=== PATIENT | male | born 1950 | race Two or more races ===

== ENCOUNTER → 2020-10-01 12:38 | Outpatient (BNVA) | payer MEDICARE, OTHER, SELFPAY | PROVIDERS: PCP Nurse Practitioner Family; Visit Provider Physician Assistant ==

== ENCOUNTER 2020-11-17 10:45 | Outpatient (REF) | payer MEDICARE, OTHER, SELFPAY ==
--- NOTE | ~2020-11-17 | XR_ITS ---
EXAMINATION: XR KNEE, RIGHT XR KNEE, LEFT CLINICAL INFORMATION: Pain in bilateral knees. COMPARISON: Bilateral knees 03/16/2015. TECHNIQUE: AP weightbearing, tunnel, lateral weightbearing, and sunrise views of each knee are obtained. FINDINGS: RIGHT KNEE: There is no fracture, malalignment, or joint effusion. There are small marginal osteophytes involving all compartments. There is significant worsening medial compartment narrowing which is now severe, with mild subchondral sclerosis. LEFT KNEE: There is no fracture, malalignment, or joint effusion. There are small marginal osteophytes involving the patellofemoral and medial compartments. There is significant worsening medial compartment narrowing, now [id number], with mild subchondral sclerosis. XR/XR knee LT 4V IMPRESSION: Right Knee: Tricompartmental osteoarthritis, with significant worsening medial compartment narrowing which is now severe. Left Knee: Tricompartmental osteoarthritis with significant worsening medial compartment narrowing, now [id number].
--- NOTE | ~2020-11-17 | XR_ITS ---
EXAMINATION: XR KNEE, RIGHT XR KNEE, LEFT CLINICAL INFORMATION: Pain in bilateral knees. COMPARISON: Bilateral knees 03/16/2015. TECHNIQUE: AP weightbearing, tunnel, lateral weightbearing, and sunrise views of each knee are obtained. FINDINGS: RIGHT KNEE: There is no fracture, malalignment, or joint effusion. There are small marginal osteophytes involving all compartments. There is significant worsening medial compartment narrowing which is now severe, with mild subchondral sclerosis. LEFT KNEE: There is no fracture, malalignment, or joint effusion. There are small marginal osteophytes involving the patellofemoral and medial compartments. There is significant worsening medial compartment narrowing, now [id number], with mild subchondral sclerosis. XR/XR knee RT 4V IMPRESSION: Right Knee: Tricompartmental osteoarthritis, with significant worsening medial compartment narrowing which is now severe. Left Knee: Tricompartmental osteoarthritis with significant worsening medial compartment narrowing, now [id number].
== END 2020-11-17 10:46 | disposition home or self-care (01) ==
LOC: HO.XRAY 10:45
PROVIDERS: PCP Internal Medicine; Visit Provider Internal Medicine
DX: M25.561 Pain in right knee (principal); M25.562 Pain in left knee
CPT/HCPCS: 73564

== ENCOUNTER 2021-06-24 09:13 | Outpatient (REF) | payer MEDICARE, OTHER, SELFPAY ==
--- NOTE | ~2021-06-24 | XR_ITS ---
EXAMINATION: XR LUMBOSACRAL SPINE CLINICAL INFORMATION: Low back pain COMPARISON: Radiographs lumbar spine 08/09/2016 TECHNIQUE: Three views of the lumbosacral spine. 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 Vertebral bodies are normal in height. There is no lumbar vertebral compression, destructive process, or definite spondylolisthesis. There are degenerative disc changes again seen the lumbosacral junction with disc narrowing and endplate sclerosis and vertebral spurring. There are partially bridging lateral osteophytes again noted lower lumbar spine and borderline degenerative disc changes second presacral disc space. The SI joints and visualized sacrum are unremarkable. 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 -Degenerative disc changes lumbosacral junction. Bridging osteophytes lower lumbar spine. -No vertebral compression or destructive process.
[2021-06-24 09:39] LABS: MANUAL DIFF FLAG NO
[2021-06-24 10:01] LABS: Basophils Percent Auto 0.5 % (0-2); Eosinophils Absolute Auto 0.4 X10*3/uL (0.0-0.4); Eosinophils Percent Auto 4.2 % (0-4); Hematocrit 39.4 % (42.0-52.0); Hemoglobin 13.3 g/dl (14.0-18.0); Imm Gran Abs Auto 0.03 X10*3/uL (0.00-0.03); Imm Gran Pct Auto 0.4 % (0.0-0.4); Lymphocytes Absolute Auto 2.4 X10*3/uL (1.2-4.9); Lymphocytes Percent Auto 28.4 % (20-40); Mean Corpuscular HGB Conc 33.8 g/dl (31.0-36.0); Mean Corpuscular Hemoglobin 30.8 pg (27.0-33.0); Mean Corpuscular Volume 91.2 fL (80.0-98.0); Mean Platelet Volume 10.1 fL (9.4-12.4); Monocytes Percent Auto 12.3 % (2-11); Neutrophils Absolute Auto 4.6 x10*3/uL (2.0-8.3); Neutrophils Percent Auto 54.2 % (45-73); Platelet Count 297 X10*3/uL (160-400); Red Blood Count 4.32 X10*6/uL (4.60-5.80); Red Cell Distribution Width 12.1 % (11.0-16.0); White Blood Count 8.4 X10*3/uL (4.8-10.8)
[2021-06-24 10:21] LABS: Estimated Average Glucose 123 mg/dL; Hemoglobin A1c % 5.9 %
[2021-06-24 10:42] LABS: Alanine Aminotransferase 19 U/L (0-40); Albumin Level 3.7 g/dL (3.5-5.0); Alkaline Phosphatase 48 U/L (39-117); Anion Gap 10 (12-20); Aspartate Amino Transferase 15 U/L (5-37); Bilirubin Direct 0.2 mg/dL (0.0-0.5); Bilirubin Total 0.6 mg/dL (0.0-1.0); Blood Urea Nitrogen 13 mg/dL (9-16); Calcium 9.2 mg/dL (8.4-10.2); Carbon Dioxide 27 mmol/L (22-29); Chloride 105 mmol/L (96-108); Cholesterol 185 mg/dL; Estimated Glomerular Filt Rate > 60; Glucose Random 100 mg/dL (60-115); HDL Cholesterol 50 mg/dL; LDL Cholesterol Calculated 120 mg/dl; Potassium 4.2 mmol/L (3.3-5.1); Sodium 138 mmol/L (135-145); Total Protein 6.9 g/dL (6.5-8.0); Triglycerides 76 mg/dL
[2021-06-24 10:53] LABS: Prostate Specific Antigen 0.58 ng/mL (<0.05-4.0)
== END 2021-06-24 09:14 | disposition home or self-care (01) ==
LOC: HO.XRAY 09:13
PROVIDERS: PCP Internal Medicine; Visit Provider Internal Medicine
DX: Z00.00 Encounter for general adult medical examination without abnormal findings (principal); Z12.5 Encounter for screening for malignant neoplasm of prostate; M54.50 Low back pain, unspecified
CPT/HCPCS: 36415; 72100; 80048; 80061; 80076; 83036; 84153; 85025

== ENCOUNTER → 2021-07-15 09:14 | Outpatient (BNVA) | payer MEDICARE, OTHER, SELFPAY | PROVIDERS: PCP Internal Medicine; Referring Provider Internal Medicine; Visit Provider Physician Assistant | DX: K21.9 Gastro-esophageal reflux disease without esophagitis (principal); K52.9 Noninfective gastroenteritis and colitis, unspecified; R10.9 Unspecified abdominal pain | CPT/HCPCS: 99202 ==

== ENCOUNTER 2021-12-21 03:56 | Emergency (ER) | payer MEDICARE, OTHER, SELFPAY ==
--- NOTE | ~2021-12-21 | CT_ITS ---
EXAMINATION: CT CHEST WITHOUT CONTRAST CLINICAL INFORMATION: Cough COMPARISON: Chest x-ray performed today TECHNIQUE: Multidetector volumetric CT imaging of the chest was done. Axial MIP volume rendering provided. Sagittal and coronal reformatted images were obtained. This CT examination was performed using dose optimization techniques as appropriate, variously including the following: *Automated exposure control *Adjustment of mA and/or kV according to patient size (this includes techniques or standardized protocols for targeted exams where dose is matched to indication/reason for exam; i.e. extremities or head) *Use of iterative reconstruction technique DLP: 424 mGy-cm FINDINGS: LUNGS: No dominant consolidations. Scattered small calcific granulomas throughout the lungs, largest of which in the posterolateral left lower lobe series 6 image 338 at 6 mm. No distinct suspicious nodules noted. MEDIASTINUM: No suspiciously enlarged mediastinal or hilar adenopathy. CORONARY ARTERY CALCIFICATION: None visualized on this study. PLEURA: There is no pleural effusion. No pleural mass or thickening. AXILLA: Small axillary nodes without suspicious enlargement. UPPER ABDOMEN: No calcific cholelithiasis. Bilateral renal cysts, not completely studied. OSSEOUS STRUCTURES: Spondylitic change. No acute compression fractures. Degenerative joint space narrowing at the glenohumeral joints. CT/CT chest wo IV con IMPRESSION: No dominant consolidations or suspicious nodules appreciated. Changes of old granulomatous disease. Other incidental findings as noted above. Fleischner guidelines were followed.
--- NOTE | ~2021-12-21 | XR_ITS ---
EXAMINATION: XR CHEST CLINICAL INFORMATION: Cough COMPARISON: 06/03/2016 TECHNIQUE: 2 views of the chest were obtained. FINDINGS: Lung volumes are symmetric. No focal consolidation is seen. There is a new nodular density measuring 1.1 cm overlying the right upper lung. No evidence of pneumothorax, pleural effusion, or pulmonary edema. The cardiomediastinal contour is unremarkable. No acute osseous findings are seen. XR/XR chest 2V IMPRESSION: Nodular density measuring 1.1 cm overlying the right upper lung, new from prior. Further workup with chest CT is recommended. Otherwise no acute cardiac pulmonary findings.
[2021-12-21 04:15] VITALS: BP 195/94; PULSE 71; RESP 18; TEMP 36.6; O2SAT 97; BMI 34.9
[2021-12-21 04:30] LABS: COVID-19 Test Negative (Negative); IDNOW Serial# 16C4AD1C
--- NOTE | 2021-12-21 07:14 | ED.URI ---
HPI - URI/Sore Throat General Chief Complaint: Upper Respiratory Symptoms Stated Complaint: general med Time Seen by Provider: 12/21/21 07:13 Source: patient Mode of arrival: ambulatory Limitations: no limitations History of Present Illness HPI Narrative: 71 yo male with hx of HTN (not on JOSIE-i), GERD notes he got the flu shot two days ago and since then has had a dry cough and runny nose no other symptoms or known sick contacts. MD elicited complaint: cough Onset (ago): day(s) (2) Consistency: intermittent Severity: mild Description of mucous: clear Able to tolerate fluids by mouth: Yes Exacerbating factors: other (coughing) Relieving factors: nothing Context: other (states started with flu vaccine) Associated symptoms: denies other symptoms Treatments prior to arrival: none Related Data Home Medications Medication Instructions Recorded Confirmed fluticasone propionate 50 2 spray intranasal QAM PRN 10/01/20 mcg/actuation nasal spray,suspension pantoprazole 20 mg tablet,delayed 20 mg PO BID 07/15/21 release Previous Rx's Medication Instructions Recorded bisacodyl 5 mg tablet,delayed 10 mg PO ONCE colonoscopy prep 1 07/15/21 release (Dulcolax (bisacodyl)) day #2 tabs famotidine 20 mg tablet 20 mg PO BEDTIME #30 tabs 07/15/21 lansoprazole 30 mg capsule,delayed 30 mg PO DAILY #30 caps 07/15/21 release polyethylene glycol 3350 17 238 g PO ONCE 1 day #238 grams 07/15/21 gram/dose oral powder (Miralax) benzonatate 100 mg capsule 100 mg PO TID PRN cough #14 caps 12/21/21 Allergies Allergy/AdvReac Type Severity Reaction Status Date / Time Penicillins [PENICILLINS] Allergy Severe PASSED Verified 07/15/21 09:25 OUT penicillin V Allergy Unknown fainting Verified 07/15/21 09:25 lisinopril [LISINOPRIL] AdvReac Intermediate HEADACHE/DI Verified 07/15/21 09:25 ZZINESS metoprolol [METOPROLOL] AdvReac Intermediate HEADACHE/DI Verified 07/15/21 09:25 ZZINESS hydrochlorothiazide AdvReac Unknown LIGHTHEADNE Verified 07/15/21 09:25 [HYDROCHLOROTHIAZIDE] SS Review of Systems Review of Systems: Constitutional : No Fever, No Chills, no weight loss ENT/Mouth : No sore throat, pos Rhinorrhea, No Swallowing Difficulty Eyes: No Eye Pain, No Swelling, No Redness Cardiovascular : No Chest Pain, positive SOB, No Orthopnea, positive Edema Respiratory : pos Cough, No Sputum, No Wheezing, positive dyspnea Gastrointestinal : No Nausea, No Vomiting, No Diarrhea, No abdominal Pain, No Hematochezia, No Melena Genitourinary : No Dysuria, No Urinary Frequency, No Hematuria Musculoskeletal : No joint pain, No Myalgias Skin : No Skin Lesions, No rash Neuro : No Weakness, No Numbness, No Dizziness, No Headache Psych : No Anxiety/Panic, No Depression All other systems reviewed and are negative [facility] Past Medical History Attestation statement: The following information was validated with the patient. Medical History Abdominal pain GERD (gastroesophageal reflux disease) HTN (hypertension) Surgical History History of esophagogastroduodenoscopy (EGD) Hx of colonoscopy Family History Family History Mother Cancer Father HTN (hypertension) Brother Cancer Sister Cancer Social History Social History Household Members Other:: lives with Alcohol intake: never Patient Tobacco Use Status: Never used Tobacco Advance Directives: No Advance Directives Information Provided: No Current occupation: retired Physical Exam Vital Signs: Vital Signs: Last Vital Signs Temp 97.9 F 12/21/21 04:15 Pulse 76 12/21/21 08:39 Resp 16 12/21/21 08:39 BP 159/72 H 12/21/21 08:39 Pulse Ox 96 12/21/21 08:39 O2 Del Method 12/21/21 08:39 BMI result Body Mass Index 34.9 Appearance: Alert. Oriented X3. No acute distress. Eyes: Pupils equal, round and reactive to light. ENT: Pharynx normal. Neck: Normal inspection. Neck supple. CVS: Normal heart rate and rhythm. Pulses normal. Respiratory: No respiratory distress. Breath sounds normal. intermittent mild dry cough Abdomen: Soft and nontender. Skin: Skin warm and dry. Normal skin color. Normal skin turgor. Extremities: No lower extremity edema. No calf ttp Neuro: Oriented X 3. No motor deficit. No sensory deficit. Course Course Course Narrative: given CXR will get dry CT scan to evaluate for possible mass no acute findings on CT chest stable for DC MDM - URI/Sore Throat MDM Narrative Medical decision making narrative: 71 yo male with hx of HTN (not on JOSIE-i), GERD here with c/o cough x 2 days and runny nose post flu vaccine - at this time not toxic, will need CXR and swabs for flu/covid/RSV. He is not toxic, no distress and not hypoxic. no CP or SOB to suggest ACS/PE. Dispo per results and findings. Lab Data Labs: Lab Results 12/21/21 12/21/21 Range/Units 04:12 07:40 COVID-19 (CHELITA) Negative (Negative) COVID-19 Clin Com See Note Influenza Type A (PCR) NEGATIVE (Negative) Influenza Type B (PCR) NEGATIVE (Negative) RSV RNA Qual (PCR) NEGATIVE (Negative) SARS-CoV-2 RNA (RT-PCR) NEGATIVE (Negative) Discharge Plan Discharge Clinical Impression: Acute cough Patient Disposition: Home, Self-Care Instructions: Acute Cough (ED) Additional Instructions: return to ED for any worsening symptoms or concerns no flu/covid/rsv CT chest normal FINDINGS: LUNGS: No dominant consolidations. Scattered small calcific granulomas throughout the lungs, largest of which in the posterolateral left lower lobe series 6 image 338 at 6 mm. No distinct suspicious nodules noted. MEDIASTINUM: No suspiciously enlarged mediastinal or hilar adenopathy. CORONARY ARTERY CALCIFICATION: None visualized on this study. PLEURA: There is no pleural effusion. No pleural mass or thickening.? AXILLA: Small axillary nodes without suspicious enlargement.? UPPER ABDOMEN: No calcific cholelithiasis. Bilateral renal cysts, not completely studied.? OSSEOUS STRUCTURES: Spondylitic change. No acute compression fractures. Degenerative joint space narrowing at the glenohumeral joints.? CT/CT chest wo IV con IMPRESSION: No dominant consolidations or suspicious nodules appreciated. ? Changes of old granulomatous disease. ? Other incidental findings as noted above. Prescriptions: New benzonatate 100 mg capsule 100 mg PO TID PRN (Reason: cough) Qty: 14 0RF No Action fluticasone propionate 50 mcg/actuation spray,suspension 2 spray intranasal QAM PRN pantoprazole 20 mg tablet,delayed release (DR/EC) 20 mg PO BID famotidine 20 mg tablet 20 mg PO BEDTIME Qty: 30 3RF lansoprazole 30 mg capsule,delayed release(DR/EC) 30 mg PO DAILY Qty: 30 3RF bisacodyl [Dulcolax (bisacodyl)] 5 mg tablet,delayed release (DR/EC) 10 mg PO ONCE 1 Days Qty: 2 0RF Rx Instructions: Take 2 tablets by mouth at 12:00pm the day before your procedure. polyethylene glycol 3350 [Miralax] 17 gram/dose powder 238 g PO ONCE 1 Days Qty: 238 0RF Rx Instructions: Take as directed by mouth the day before your procedure. Referrals: Sharmin Church MD [Primary Care Provider] - 5 days (if not better)
[2021-12-21 08:30] LABS: Influenza A PCR NEGATIVE (Negative); Influenza B PCR NEGATIVE (Negative); Resp Syncy Virus RNA Qual PCR NEGATIVE (Negative); SARS COV2 PCR INHOUSE NEGATIVE (Negative)
[2021-12-21 08:39] VITALS: BP 159/72; PULSE 76; RESP 16; O2SAT 96
== END 2021-12-21 09:30 | disposition home or self-care (01) ==
PROVIDERS: Emergency Provider Emergency Medicine; PCP Internal Medicine
DX: R05.9 Cough, unspecified (principal); M54.6 Pain in thoracic spine; Z20.822 Contact with and (suspected) exposure to COVID-19; Z79.899 Other long term (current) drug therapy
CPT/HCPCS: 0241U; 71046; 71250; 87635; 99282; 99284

== ENCOUNTER → 2021-12-28 15:49 | Outpatient (REF) | payer MEDICARE, OTHER, SELFPAY | LOC: HO.SL 15:49 | PROVIDERS: Visit Provider Internal Medicine | DX: G47.33 Obstructive sleep apnea (adult) (pediatric) (principal); G47.10 Hypersomnia, unspecified | CPT/HCPCS: 95806 ==

== ENCOUNTER 2023-02-28 10:07 | Outpatient (REF) | payer MEDICARE, OTHER, SELFPAY ==
[2023-02-28 12:15] LABS: Anion Gap 11 (12-20); Blood Urea Nitrogen 12 mg/dL (9-16); Calcium 8.9 mg/dL (8.4-10.2); Carbon Dioxide 26 mmol/L (22-29); Chloride 106 mmol/L (96-108); Estimated Glomerular Filt Rate > 60; Glucose Random 99 mg/dL (60-115); Potassium 3.8 mmol/L (3.3-5.1); Sodium 139 mmol/L (135-145)
== END 2023-02-28 10:08 | disposition home or self-care (01) ==
LOC: HO.HHCL 10:07
PROVIDERS: Visit Provider Nurse Practitioner Primary Care
DX: I10 Essential (primary) hypertension (principal)
CPT/HCPCS: 36415; 80048

== ENCOUNTER 2023-03-08 10:03 | Outpatient (REF) | payer MEDICARE, OTHER, SELFPAY ==
[2023-03-08 12:17] LABS: Prostate Specific Antigen 0.52 ng/mL (<0.05-4.0)
== END 2023-03-08 10:04 | disposition home or self-care (01) ==
LOC: HO.HHCL 10:03
PROVIDERS: Visit Provider Internal Medicine
DX: Z00.00 Encounter for general adult medical examination without abnormal findings (principal); Z12.5 Encounter for screening for malignant neoplasm of prostate
CPT/HCPCS: 36415; 84153

== ENCOUNTER 2023-04-10 11:23 | Day surgery (SDC) | payer MEDICARE, OTHER, MEDICAID, SELFPAY ==
--- NOTE | 2023-04-07 09:02 | HO.ANESPROP2 ---
Documented by User: Indu Navas NP 04/07/23 09:08 HPI - Anesthesia Eval Consult details Narrative: 72yo M for Colonoscopy PMFSH Active Problems Active Problems: All Active Problems (Updated 12/22/21 @ 00:02 by Abundio Felder) Abdominal pain (Acute) Chronic diarrhea (Acute) Past Medical History Medical History HTN (hypertension) Abdominal pain GERD (gastroesophageal reflux disease) Family History Family History Mother Cancer Father HTN (hypertension) Brother Cancer Sister Cancer Surgical History Surgical History Hx of colonoscopy History of esophagogastroduodenoscopy (EGD) Social History Social History Household Members Other:: lives with Alcohol intake: never Patient Tobacco Use Status: Never used Tobacco Use of substances other than those prescribed or required for medical reasons: No Are you DNR?: No Advance Directives: No Advance Directives Information Provided: Yes Current occupation: retired Meds Allergies Allergy/AdvReac Type Severity Reaction Status Date / Time Penicillins [PENICILLINS] Allergy Severe PASSED Verified 04/10/23 11:56 OUT penicillin V Allergy Unknown fainting Verified 04/10/23 11:56 lisinopril [LISINOPRIL] AdvReac Intermediate HEADACHE/DI Verified 04/10/23 11:56 ZZINESS metoprolol [METOPROLOL] AdvReac Intermediate HEADACHE/DI Verified 04/10/23 11:56 ZZINESS hydrochlorothiazide AdvReac Unknown LIGHTHEADNE Verified 04/10/23 11:56 [HYDROCHLOROTHIAZIDE] SS Home Medications Medication Instructions Recorded Confirmed Last Taken Type fluticasone propionate 50 2 spray intranasal QAM PRN 10/01/20 Unknown History mcg/actuation nasal spray,suspension pantoprazole 20 mg tablet,delayed 20 mg PO BID 07/15/21 Unknown History release Exam Pertinent Lab Results Pertinent Lab Results: Laboratory Tests 06/24/21 02/28/23 09:38 10:15 WBC 8.4 Hgb 13.3 L Hct 39.4 L Plt Count 297 Sodium 139 Potassium 3.8 Chloride 106 Carbon Dioxide 26 BUN 12 Creatinine 0.81 Assessment and Plan Assessment Anesthesia Assessment: Chart Reviewed Documented by User: Aixa Andujar MD 04/10/23 12:45 [facility] Past Medical History Medical History HTN (hypertension) Abdominal pain GERD (gastroesophageal reflux disease) Family History Family History Mother Cancer Father HTN (hypertension) Brother Cancer Sister Cancer Family history of problems with anesthesia: No Surgical History Surgical History Hx of colonoscopy History of esophagogastroduodenoscopy (EGD) History of Problems with Anesthesia: No Social History Social History Household Members Other:: lives with Alcohol intake: never Patient Tobacco Use Status: Never used Tobacco Use of substances other than those prescribed or required for medical reasons: No Are you DNR?: No Advance Directives: No Advance Directives Information Provided: Yes Current occupation: retired Meds Allergies Allergy/AdvReac Type Severity Reaction Status Date / Time Penicillins [PENICILLINS] Allergy Severe PASSED Verified 04/10/23 11:56 OUT penicillin V Allergy Unknown fainting Verified 04/10/23 11:56 lisinopril [LISINOPRIL] AdvReac Intermediate HEADACHE/DI Verified 04/10/23 11:56 ZZINESS metoprolol [METOPROLOL] AdvReac Intermediate HEADACHE/DI Verified 04/10/23 11:56 ZZINESS hydrochlorothiazide AdvReac Unknown LIGHTHEADNE Verified 04/10/23 11:56 [HYDROCHLOROTHIAZIDE] Home Medications Medication Instructions Recorded Confirmed Last Taken Type fluticasone propionate 50 2 spray intranasal QAM PRN 10/01/20 Unknown History mcg/actuation nasal spray,suspension pantoprazole 20 mg tablet,delayed 20 mg PO BID 07/15/21 Unknown History release Exam Airway Mallampati Class: II TM Dist: >3cm Neck ROM: Full Heart: rrr Lungs: cta Assessment and Plan Assessment Anesthesia Assessment: Anesthesia Plan Discussed Final Anesthetic Review Family History of Problems with Anesthesia: No History of Problems with Anesthesia: No NPO: Yes ASA Class: III Final Preanesthetic Review: No Changes in Pt Med Stat, Meds/Allgs Chart Reviewed, Consent Obtained/Reviewed and Anes Risks/Benef Reviewed Patient Risk: Intermediate Procedure Risk: Low Anesthetic Plan Anesthetic Plan: MAC: Disposition: Standard PACU
[2023-04-10 11:51] VITALS: BMI 35.9
[2023-04-10 12:10] VITALS: BP 147/67; PULSE 72; RESP 16; TEMP 36.4; O2SAT 95
[2023-04-10] MEDS: Famotidine/PF 20 MG/2 ML VIAL IVPUSH (12:29)
[2023-04-10] MEDS: Lactated Ringers 1,000 ML 100 ML IVCONT (12:36)
[2023-04-10 14:26] VITALS: BP 98/57; PULSE 74; RESP 16; TEMP 37.2; O2SAT 98
--- NOTE | 2023-04-10 14:27 | PM.OP ---
Brief Operative Note Date of Service: 04/10/23 Pre-op diagnosis: + Cologuard Post-op diagnosis: other (Polyps) Procedure: Colonoscopy to the cecum with hot snare polypectomy x 8 with placement of 2 Resolution clips x 2 placed at proximal-most ascending colon polyps Surgeon: Felipe Varela MD Anesthesia: MAC Was an [employer] used for this Procedure?: No Estimated blood loss (mL): 0 Pathology: other (A. Polyp at 40cm B. Transverse colon polyp C. Cecal polyp D. Four Ascending colon polyps E. Polyp at 60cm) Condition: stable Disposition: PACU
[2023-04-10 14:41] VITALS: BP 123/66; PULSE 70; RESP 16; O2SAT 100
[2023-04-10 14:51] VITALS: BP 121/67; PULSE 64; RESP 16; TEMP 37.2; O2SAT 99
--- NOTE | 2023-04-10 22:21 | OP_ITS ---
DATE OF SERVICE: 04/10/2023 SURGEON: Felipe Varela MD INDICATIONS: The patient presents for evaluation of a positive Cologuard test. PREOPERATIVE DIAGNOSIS: Posiitve Cologuard POSTOPERATIVE DIAGNOSIS: Colon polyps, Diverticulosis PROCEDURE PERFORMED: Colonoscopy to the cecum with hot snare polypectomy x 8 and placement of resolution clips on the 2 most proximal polypectomy sites in the proximal ascending colon. ESTIMATED BLOOD LOSS: COMPLICATIONS: ANESTHESIA: ASSISTANTS: SPECIMENS: DESCRIPTION OF PROCEDURE: The patient was placed in the left lateral decubitus position. The digital rectal exam revealed no abnormalities. The Olympus video pediatric colonoscope was entered into the rectum and advanced to a level of 60 cm. At this level was an approximately 1.2 cm polyp on a short stalk, which was removed by hot snare polypectomy and recovered by withdrawing it on the tip of the scope. The scope was then readvanced back into the rectum and to the polypectomy site. The polypectomy site was visualized and appeared clean, without any sign of residual polyp nor bleeding. As the scope was being advanced to the cecum, an approximately 8 mm transverse colon polyp was visualized, and this was removed by hot snare polypectomy and recovered by suction. The polypectomy site appeared clean, without any sign of residual polyp nor bleeding. The scope was then advanced to the cecum. The entire cecum was well visualized including the appendiceal orifice, which appeared normal. The ileocecal valve appeared normal. In the cecum was an approximately 8 mm polyp, which was removed by hot snare polypectomy and recovered by suction. The polypectomy site appeared clean, without any sign of residual polyp nor bleeding. The scope was then slowly withdrawn assessing all mucosal surfaces carefully. Preparation was excellent. In the proximal ascending colon were 4 polyps. Two of these were approximately 1.2 cm in size. The 2 larger polyps, which were just distal to those 2 polyps were larger at approximately 2 cm each. All of the polyps were removed by hot snare polypectomy. The 2 more proximal polypectomy sites appeared clean, without any sign of residual polyps nor bleeding. I did place 2 resolution clips on each of those 2 polypectomy sites with good deployment and good hemostasis. Both of those polyps were then recovered with the retrieval net simultaneously and brought out of the patient with the scope. The scope was then readvanced back to the polypectomy sites. The 2 larger polyps were then recovered with the retrieval net as well in a simultaneous manner and then brought out of the patient. The scope was then readvanced back to the polypectomy sites as well. As best I could see, the polypectomy sites of the 2 larger polyps appeared clean, without any sign of residual polyp nor bleeding. However, it was difficult to get a good en face visualization of those polypectomy sites. I was planning to place clips on them given the size of the polyps, but I was not able to get a good visualization of them and therefore, clips were not placed. At that point, the procedure was quite lengthy and I opted to start withdrawing the scope. At 60 cm was an approximately 8 mm polyp on a long thin stalk, which was removed by hot snare polypectomy and recovered by suction. The polypectomy site appeared clean, without any sign of residual polyp nor bleeding. I did not visualize any other polyps, colitis, or angiodysplasia. There was a mild amount of sigmoid diverticulosis. In the rectum, scope was retroflexed visualizing internal hemorrhoids, but no other pathology. The rectal mucosa appeared normal. The scope was straightened and withdrawn from the patient. He tolerated the procedure well and was returned to the recovery area in stable condition. IMPRESSION: 1. Colon polyps. 2. Diverticulosis. 3. Internal hemorrhoids. PLAN: The results of the pathology will be checked. Assuming there is no malignancy in the larger polyps, I would then recommend a repeat colonoscopy by the end of this year for re-evaluation of the polypectomy sites, particularly the 2 largest ones in the ascending colon. He will be seen later this Spring for followup in the office to schedule that. He was advised not to use any aspirin and NSAIDs for at least 2 weeks. This has all been discussed in detail with his , as well as with the patient. He has been advised to call if he has any signs of bleeding. MD ALLYN Hinton/OSWALDO / [id number] ELANA
== END 2023-04-10 15:27 | disposition home or self-care (01) ==
PROVIDERS: Visit Provider Internal Medicine
PROC: 0DJD8ZZ Inspection of Lower Intestinal Tract, Via Natural or Artificial Opening Endoscopic (ICD-10-PCS; CPT 45378; principal; 2023-04-10 12:30)
DX: D12.0 Benign neoplasm of cecum (principal); D12.3 Benign neoplasm of transverse colon; D12.4 Benign neoplasm of descending colon; D12.5 Benign neoplasm of sigmoid colon; K57.30 Diverticulosis of large intestine without perforation or abscess without bleeding; K64.8 Other hemorrhoids; R19.5 Other fecal abnormalities
CPT/HCPCS: 45385; 88305; J2704

== ENCOUNTER 2023-06-05 16:02 | Outpatient (REF) | payer MEDICARE, OTHER, MEDICAID, SELFPAY | END 2023-06-05 16:03 | disposition home or self-care (01) | LOC: HO.HHCLNP 16:02 | PROVIDERS: Visit Provider General Practice | DX: R19.7 Diarrhea, unspecified (principal) | CPT/HCPCS: 87177; 87209 ==

== ENCOUNTER 2023-09-27 13:20 | Outpatient (AMB) | payer MEDICARE, OTHER, MEDICAID, SELFPAY ==
--- NOTE | 2023-09-27 13:22 | A.OFFVIS_ITS ---
Vital Signs 09/27/23 13:23 Height 5 ft 11 in Weight 258 lb 13.163 oz BMI 36.1 BP 142/68 H Blood Pressure Location Lt brachial Position Sitting Pulse 70 Pulse Source Pulse Oximeter Intake Visit Reasons: Pituitary macroadenoma/confirmed Intake Note: Patient present today for Pituitary macroadenoma follow up visit. Male Infertility Specialist Required: Yes Male Infertility Specialist Language: Croatian Information Interpreted: non-clinical & clinical Accompanied by: Self / Same As Patient Allergies Penicillins [PENICILLINS] Allergy (Severe, Verified 09/27/23 13:28) PASSED OUT penicillin V Allergy (Unknown, Verified 09/27/23 13:28) fainting lisinopril [LISINOPRIL] Adverse Reaction (Intermediate, Verified 09/27/23 13:28) HEADACHE/DIZZINESS metoprolol [METOPROLOL] Adverse Reaction (Intermediate, Verified 09/27/23 13:28) HEADACHE/DIZZINESS hydrochlorothiazide [HYDROCHLOROTHIAZIDE] Adverse Reaction (Unknown, Verified 09/27/23 13:28) LIGHTHEADNESS Medication List - Last Reconciled 09/27/23 by Felipe Gleason MD benzonatate 100 mg PO TID PRN bisacodyl (Dulcolax (bisacodyl)) 10 mg (2 x 5 mg) PO ONCE 1 day famotidine 20 mg PO BEDTIME fluticasone propionate 50 mcg/actuation 2 sprays intranasal QAM PRN lansoprazole 30 mg PO DAILY losartan 100 mg PO DAILY pantoprazole 20 mg PO BID polyethylene glycol 3350 (Miralax) 238 grams PO ONCE 1 day HPI Comments Details: This is a 73-year-old male referred to endocrinology for 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 . CT Scan showed a 17 by 23 x 21 mm suprasellar lesion with bony expansion of the sella turcica. There is no further workup provided. CT Scan was done for headache . No visual field was performed Currently, patient admits to occasional headache but c/o loss of vision in left . He denies any breast discharge. He denies any symptoms of enlargement of the hands or feet with symptoms of acromegaly. He denies any symptoms of Diana syndrome. No loss of libido . [facility] Medical History HTN (hypertension) Abdominal pain GERD (gastroesophageal reflux disease) Surgical History Hx of colonoscopy History of esophagogastroduodenoscopy (EGD) Family History Mother Cancer Father HTN (hypertension) Brother Cancer Sister Cancer Social History Household Members Other:: lives with Alcohol intake: never Patient Tobacco Use Status: Never used Tobacco Current occupation: retired Physical Exam Const Other: No cushingoid or acromegalic features. Thyroid gland is normal size weighs about 15 g. There was no loss of visual david by gross confrontation. Assessment & Plan Assessment & Plan (1) Pituitary adenoma: Code(s): D35.2 - Benign neoplasm of pituitary gland Category: Medical Plan: This is a 73-year-old male with a history of pituitary macroadenoma. Rule out hypersecretion of pituitary hormones and under secretion . He had normal basic metabolic panel Plan is to check a prolactin, IGF-1, TSH, free T4, a.m. cortisol, testosterone, LH, FSH. Will need a Neuro-Ophthalmology referral to rule out visual field loss. Will also get MRI of the pituitary for better visualization. Will make referral to neurosurgeon Dr. Castelan in [place] at [facility] General Orders: Orders Cortisol Random Today D35.2 - Benign neoplasm of pituitary gland Lutenizing Hormone Today D35.2 - Benign neoplasm of pituitary gland Follicle Stimulating Hormone Today D35.2 - Benign neoplasm of pituitary gland Free T4 (Free Thyroxine) Today D35.2 - Benign neoplasm of pituitary gland Thyroid Stimulating Hormone Today D35.2 - Benign neoplasm of pituitary gland MR head/brain wo/w con Today D35.2 - Benign neoplasm of pituitary gland Cortisol, Free 24Hr Urine Today D35.2 - Benign neoplasm of pituitary gland IGF-1 (Somatomedin C) Today D35.2 - Benign neoplasm of pituitary gland Creatinine, 24 Hr Group Today D35.2 - Benign neoplasm of pituitary gland Prolactin Today D35.2 - Benign neoplasm of pituitary gland Testosterone, Free/Total Today D35.2 - Benign neoplasm of pituitary gland Referrals Neurosurgery Referral D35.2 - Benign neoplasm of pituitary gland Coding Level of Care Code New Pt Level 4 (33219) Diagnoses Pituitary adenoma D35.2
[2023-09-27 13:23] VITALS: BP 142/68; PULSE 70; BMI 36.1
== END 2023-09-27 15:28 | disposition home or self-care (01) ==
PROVIDERS: Visit Provider Internal Medicine Endocrinology, Diabetes & Metabolism
DX: D35.2 Benign neoplasm of pituitary gland (principal)
CPT/HCPCS: 99204

== ENCOUNTER → 2023-09-27 13:20 | Outpatient (BNVA) | payer MEDICARE, OTHER, MEDICAID, SELFPAY | PROVIDERS: Visit Provider Internal Medicine Endocrinology, Diabetes & Metabolism | DX: D35.2 Benign neoplasm of pituitary gland (principal) | CPT/HCPCS: 99202 ==

== ENCOUNTER 2023-10-16 09:10 | Outpatient (REF) | payer MEDICARE, OTHER, MEDICAID, SELFPAY ==
[2023-10-16 10:57] LABS: Cortisol Random 12.9 ug/dL
[2023-10-16 11:02] LABS: Free T4 (Free Thyroxine) 0.86 ng/dL (0.71-1.85); Thyroid Stimulating Hormone 3.18 uIU/mL (0.32-4.0)
[2023-10-16 13:55] LABS: Creatinine, 24Hr Urine 1.2 G/Day (1.0-2.0); Total Volume 24 Hour Urine 1625 mL
[2023-10-20 06:33] LABS: Lutenizing Hormone 1.7 mIU/mL (1.6-15.2); Prolactin 1695.1 ng/mL (2.0-18.0)
[2023-10-20 21:34] LABS: Testosterone, Free 8.7 pg/mL (30.0-135.0); Testosterone, Total 74 ng/dL (250-1100)
[2023-10-22 14:39] LABS: IGF-1 (Somatomedin C) 54 ng/mL (34-245); IGF-1 Z Score (Male) -1.3 SD (-2.0 - +2.0)
[2023-10-23 15:23] LABS: Cortisol Free, 24 Hr Urine 4.2 mcg/24 h (4.0-50.0); Creatinine, 24 Hr Urine 1.26 g/24 h (0.50-2.15); Total Volume, 24 Hr Urine 1625 mL
== END 2023-10-16 09:11 | disposition home or self-care (01) ==
LOC: HO.LAB 09:10
PROVIDERS: PCP Internal Medicine; Visit Provider Internal Medicine Endocrinology, Diabetes & Metabolism
DX: D35.2 Benign neoplasm of pituitary gland (principal)
CPT/HCPCS: 36415; 82530; 82533; 82570; 83001; 83002; 84146; 84305; 84402; 84403; 84439; 84443

== ENCOUNTER 2023-10-30 10:55 | Outpatient (REF) | payer MEDICARE, OTHER, MEDICAID, SELFPAY ==
--- NOTE | ~2023-10-30 | MR_ITS ---
EXAMINATION: MR BRAIN WITHOUT AND WITH CONTRAST CLINICAL INFORMATION: Pituitary adenoma. COMPARISON: None available. TECHNIQUE: MRI of the brain was obtained using pituitary protocol without and following the administration of 5 mL of Gadavist intravenous contrast. FINDINGS: No focal restricted diffusion is demonstrated to suggest acute or subacute cerebral ischemia. No evidence of acute or chronic hemorrhagic products on heme-sensitive imaging. Scattered periventricular and deep white matter T2 FLAIR hyperintensities consistent with mild underlying microangiopathy. Proportional prominence of the ventricles and sulcal spaces without evidence of obstructive hydrocephalus. No abnormal mass effect. No midline shift. Expansion of the sella turcica with smooth remodeling of the body of the clivus. There appears to be a plane of normally enhancing pituitary parenchyma along the superior margin of a hypoenhancing soft tissue lesion filling the sella turcica, measuring approximately 1.6 x 1.6 x 2 cm. The lesion appears to partially extend into the left cavernous sinus, encasing approximately 50% of the cavernous segment of the left ICA. The lesion does not definitively abut the right ICA origin. The right cavernous sinus. The pituitary infundibulum is normal in morphology and mildly deviated to the right. The suprasellar cistern remains widely patent. No abnormal mass effect on the optic chiasm. Normal positioning of the cerebellar tonsils. Normal arterial and venous vascular flow voids are present. No additional abnormal contrast enhancement. Normal, homogeneous marrow signal. Mild mucosal thickening of the paranasal sinuses. No signal abnormalities within the mastoids. MR/MR head/brain wo/w con IMPRESSION: 1. There is a 2 cm lesion with smooth remodeling of the sella turcica suggestive of a pituitary macroadenoma. The lesion appears to partially extend into the left cavernous sinus, encasing approximately 50% of the cavernous segment of the left ICA. 2. No acute intracranial abnormalities. No additional abnormal intracranial enhancement. 3. Mild underlying microangiopathy and generalized cerebral volume loss. Electronically signed by: Carmelo Hardin DO 11/22/2023 03:18 PM EDT
[2023-10-30] MEDS: gadobutroL 7.5 ML VIAL IVPUSH (12:11)
== END 2023-10-30 10:56 | disposition home or self-care (01) ==
LOC: HO.MRI 10:55
PROVIDERS: PCP Internal Medicine; Visit Provider Internal Medicine Endocrinology, Diabetes & Metabolism
DX: D35.2 Benign neoplasm of pituitary gland (principal)
CPT/HCPCS: 70553; A9585

== ENCOUNTER 2023-11-06 11:25 | Outpatient (AMB) | payer MEDICARE, OTHER, MEDICAID, SELFPAY ==
[2023-11-06 11:27] VITALS: BP 164/72; PULSE 61; BMI 35.4
--- NOTE | 2023-11-06 11:27 | MHC.OFFVIS ---
Vital Signs 11/06/23 11:27 Height 5 ft 11 in Weight 253 lb 12.033 oz BMI 35.4 BP 164/72 H Blood Pressure Location Lt brachial Position Sitting Pulse 61 Pulse Source Pulse Oximeter Intake Visit Reasons: discuss medications Intake Note: Patient present today to discuss medication. Children'S Ministry Director Required: Yes Children'S Ministry Director Language: Immigration Investigator Services: Children'S Ministry Director Present Children'S Ministry Director Name: Loy Information Interpreted: non-clinical & clinical Accompanied by: Spouse Allergies Penicillins [PENICILLINS] Allergy (Severe, Verified 11/06/23 11:35) PASSED OUT penicillin V Allergy (Unknown, Verified 11/06/23 11:35) fainting lisinopril [LISINOPRIL] Adverse Reaction (Intermediate, Verified 11/06/23 11:35) HEADACHE/DIZZINESS metoprolol [METOPROLOL] Adverse Reaction (Intermediate, Verified 11/06/23 11:35) HEADACHE/DIZZINESS hydrochlorothiazide [HYDROCHLOROTHIAZIDE] Adverse Reaction (Unknown, Verified 11/06/23 11:35) LIGHTHEADNESS HPI Comments Details: This is a 73-year-old male referred to endocrinology for 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 . CT Scan showed a 17 by 23 x 21 mm suprasellar lesion with bony expansion of the sella turcica. There is no further workup provided. CT Scan was done for headache . No visual field was performed Currently, patient admits to occasional headache but c/o loss of vision in left . He denies any breast discharge. He denies any symptoms of enlargement of the hands or feet with symptoms of acromegaly. He denies any symptoms of Diana syndrome. No loss of libido . Workup showed the adenoma to be prolactin secreting. An MRI of the pituitary is pending. Patient was tried on cabergoline but could not tolerate. [facility] Medical History (Updated 09/27/23 @ 13:31 by Felipe Gleason MD) Pituitary adenoma HTN (hypertension) Abdominal pain GERD (gastroesophageal reflux disease) Surgical History Hx of colonoscopy History of esophagogastroduodenoscopy (EGD) Family History Mother Cancer Father HTN (hypertension) Brother Cancer Sister Cancer Social History Household Members Other:: lives with Alcohol intake: never Patient Tobacco Use Status: Never used Tobacco Current occupation: retired Physical Exam Vital Signs: Last Vital Signs Pulse 61 11/06/23 11:27 BP 164/72 H 11/06/23 11:27 BMI result Body Mass Index 35.4 Const Other: No cushingoid or acromegalic features. Thyroid gland is normal size weighs about 15 g. There was no loss of visual david by gross confrontation. Assessment & Plan Assessment & Plan (1) Pituitary adenoma: Code(s): D35.2 - Benign neoplasm of pituitary gland Category: Medical Plan: This is a 73-year-old male with a history of pituitary macroadenoma. 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 MRI of the pituitary is pending. Patient started cabergoline but can not tolerate Plan is to talk to the patient about medical options including switching to bromocriptine. The other option depending upon pituitary MRI could be surgical resection and would like to refer the patient to expert pituitary neurosurgeon. Will prescribe 2.5 mg bromocriptine with the expectation of titrating upward assuming no side effects every 5-7 days checking prolactin. He is going to coordinate getting an appointment with the neurosurgeon at [facility]. The necessity of taking the medication to shrink the tumor and/or neurosurgical consultation was explained at length to the patient and his with the help of a language interpreter Coding Level of Care Code Est Pt Level 3 (44456) Diagnoses Pituitary adenoma D35.2
== END 2023-11-06 12:17 | disposition home or self-care (01) ==
PROVIDERS: PCP Internal Medicine; Visit Provider Internal Medicine Endocrinology, Diabetes & Metabolism
DX: D35.2 Benign neoplasm of pituitary gland (principal)
CPT/HCPCS: 99213

== ENCOUNTER → 2023-11-06 11:25 | Outpatient (BNVA) | payer MEDICARE, OTHER, MEDICAID, SELFPAY | PROVIDERS: PCP Internal Medicine; Visit Provider Internal Medicine Endocrinology, Diabetes & Metabolism | DX: D35.2 Benign neoplasm of pituitary gland (principal) | CPT/HCPCS: 99212 ==

== ENCOUNTER 2023-11-22 09:03 | Outpatient (REF) | payer MEDICARE, OTHER, MEDICAID, SELFPAY ==
[2023-11-22 10:03] LABS: Alanine Aminotransferase 18 U/L (0-40); Albumin Level 3.7 g/dL (3.5-5.0); Alkaline Phosphatase 47 U/L (39-117); Aspartate Amino Transferase 14 U/L (5-37); Bilirubin Direct 0.2 mg/dL (0.0-0.5); Bilirubin Total 0.5 mg/dL (0.0-1.0); Total Protein 7.2 g/dL (6.5-8.0)
[2023-11-23 18:04] LABS: Prolactin 2.3 ng/mL (2.0-18.0)
== END 2023-11-22 09:04 | disposition home or self-care (01) ==
LOC: HO.LAB 09:03
PROVIDERS: PCP Internal Medicine; Visit Provider Internal Medicine Endocrinology, Diabetes & Metabolism
DX: D35.2 Benign neoplasm of pituitary gland (principal)
CPT/HCPCS: 36415; 80076; 84146

== ENCOUNTER 2023-11-27 15:02 | Outpatient (AMB) | payer MEDICARE, OTHER, MEDICAID, SELFPAY ==
--- NOTE | 2023-11-27 15:03 | MHC.OFFVIS ---
Vital Signs 11/27/23 15:06 Height 5 ft 11 in Weight 257 lb 7.999 oz BMI 35.9 BP 114/58 L Blood Pressure Location Rt brachial Position Sitting Pulse 69 Pulse Source Pulse Oximeter Intake Visit Reasons: Discuss MRI results-confirmed Intake Note: Patient present today for MRI results, done [place] [facility] Internet Systems Administrator Required: Yes Internet Systems Administrator Language: Concrete Mason Services: Internet Systems Administrator Present Internet Systems Administrator Name: Ilan Information Interpreted: non-clinical & clinical Accompanied by: Spouse Allergies Penicillins [PENICILLINS] Allergy (Severe, Verified 11/27/23 15:07) PASSED OUT penicillin V Allergy (Unknown, Verified 11/27/23 15:07) fainting lisinopril [LISINOPRIL] Adverse Reaction (Intermediate, Verified 11/27/23 15:07) HEADACHE/DIZZINESS metoprolol [METOPROLOL] Adverse Reaction (Intermediate, Verified 11/27/23 15:07) HEADACHE/DIZZINESS hydrochlorothiazide [HYDROCHLOROTHIAZIDE] Adverse Reaction (Unknown, Verified 11/27/23 15:07) LIGHTHEADNESS Medication List - Last Reconciled 11/27/23 by Felipe Gleason MD benzonatate 100 mg PO TID PRN bisacodyl (Dulcolax (bisacodyl)) 10 mg (2 x 5 mg) PO ONCE 1 day bromocriptine 2.5 mg PO DAILY famotidine 20 mg PO BEDTIME fluticasone propionate 50 mcg/actuation 2 sprays intranasal QAM PRN hydrochlorothiazide 25 mg PO DAILY lansoprazole 30 mg PO DAILY losartan 100 mg PO DAILY pantoprazole 20 mg PO BID polyethylene glycol 3350 (Miralax) 238 grams PO ONCE 1 day HPI Comments Details: This is a 73-year-old male referred to endocrinology for 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 . CT Scan showed a 17 by 23 x 21 mm suprasellar lesion with bony expansion of the sella turcica. There is no further workup provided. CT Scan was done for headache . No visual field was performed Currently, patient admits to occasional headache but c/o loss of vision in left . He denies any breast discharge. He denies any symptoms of enlargement of the hands or feet with symptoms of acromegaly. He denies any symptoms of Diana syndrome. No loss of libido . Workup showed the adenoma to be prolactin secreting. An MRI of the pituitary showed invasion of the cavernous sinus. Pt here to discuss today. He is tolerating the bromocriptine without problems. He states increase in libido. Denies any orthostatic symptoms [facility] Medical History (Updated 09/27/23 @ 13:31 by Felipe Gleason MD) Pituitary adenoma HTN (hypertension) Abdominal pain GERD (gastroesophageal reflux disease) Surgical History Hx of colonoscopy History of esophagogastroduodenoscopy (EGD) Family History Mother Cancer Father HTN (hypertension) Brother Cancer Sister Cancer Social History Household Members Other:: lives with Alcohol intake: never Patient Tobacco Use Status: Never used Tobacco Current occupation: retired Physical Exam Vital Signs: BMI result Body Mass Index 35.9 Assessment & Plan Assessment & Plan (1) Pituitary adenoma: Code(s): D35.2 - Benign neoplasm of pituitary gland Category: Medical Plan: This is a 73-year-old male with a history of pituitary macroadenoma. 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 MRI of the pituitary showed cavernous sinus invasion . Prolactin level normalized on 2.5 mg of bromocriptine? Most likely, either the initial prolactin or subsequent prolactin was measured correctly possibly affected by the hook affect Plan is to explain the pt with aninterpreter necessity of seeing a experienced neurosurgeon The other option depending upon pituitary MRI could be surgical resection and would like to refer the patient to expert pituitary neurosurgeon. Will prescribe 2.5 mg bromocriptine with the expectation of titrating upward assuming no side effects every 5-7 days checking prolactin. He is going to coordinate getting an appointment with the neurosurgeon at [facility]. . Will talk to [facility] to see if they can run serial dilutions on the repeat prolactin level get accurate measure. We will continue the bromocriptine 2.5 mg for now. With the help of assistant basketball coach explained the necessity again of getting a expert Neurosurgery opinion at [facility] because of the aggressiveness of the adenoma invasion of the cavernous sinus Coding Level of Care Code Est Pt Level 3 (42603) Diagnoses Pituitary adenoma D35.2
[2023-11-27 15:06] VITALS: BP 114/58; PULSE 69; BMI 35.9
== END 2023-11-27 15:29 | disposition home or self-care (01) ==
PROVIDERS: PCP Internal Medicine; Visit Provider Internal Medicine Endocrinology, Diabetes & Metabolism
DX: D35.2 Benign neoplasm of pituitary gland (principal)
CPT/HCPCS: 99213

== ENCOUNTER → 2023-11-27 15:02 | Outpatient (BNVA) | payer MEDICARE, OTHER, MEDICAID, SELFPAY | PROVIDERS: PCP Internal Medicine; Visit Provider Internal Medicine Endocrinology, Diabetes & Metabolism | DX: D35.2 Benign neoplasm of pituitary gland (principal) | CPT/HCPCS: 99212 ==

== ENCOUNTER 2024-03-28 13:56 | Outpatient (AMB) | payer MEDICARE, OTHER, MEDICAID, SELFPAY ==
--- NOTE | 2024-03-28 14:01 | MHC.OFFVIS ---
Vital Signs 03/28/24 14:02 Height 5 ft 10 in Weight 248 lb 0.321 oz BMI 35.6 BP 144/60 H Blood Pressure Location Lt brachial Position Sitting Pulse 64 Pulse Source Pulse Oximeter Intake Visit Reasons: F/u pituitary adenoma Intake Note: Patient present today for Pituitary Adenoma follow up. Photoengraving Etcher Required: Yes Photoengraving Etcher Language: Trimmer Machine Operator Services: Photoengraving Etcher Present Photoengraving Etcher Name: Geni Information Interpreted: non-clinical & clinical Accompanied by: Self / Same As Patient Allergies Penicillins [PENICILLINS] Allergy (Severe, Verified 03/28/24 14:05) PASSED OUT lisinopril [LISINOPRIL] Adverse Reaction (Intermediate, Verified 03/28/24 14:05) HEADACHE/DIZZINESS metoprolol [METOPROLOL] Adverse Reaction (Intermediate, Verified 03/28/24 14:05) HEADACHE/DIZZINESS hydrochlorothiazide [HYDROCHLOROTHIAZIDE] Adverse Reaction (Unknown, Verified 03/28/24 14:05) LIGHTHEADNESS HPI Comments Details: This is a 73-year-old male referred to endocrinology for 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 . CT Scan showed a 17 by 23 x 21 mm suprasellar lesion with bony expansion of the sella turcica. There is no further workup provided. CT Scan was done for headache . No visual field was performed Currently, patient admits to occasional headache but c/o loss of vision in left . He denies any breast discharge. He denies any symptoms of enlargement of the hands or feet with symptoms of acromegaly. He denies any symptoms of [place] syndrome. No loss of libido . Workup showed the adenoma to be prolactin secreting. An MRI of the pituitary showed invasion of the cavernous sinus. Pt here to discuss today. He is tolerating the bromocriptine without problems. He states increase in libido. Denies any orthostatic symptoms Patient was referred to [facility] Dr. Gallegos and was felt that he is responding medically to bromocriptine and surgery was not necessary. He is currently on 2.5 mg of bromocriptine per day. Complains of chronic headache relieved with Tylenol but not any worse in intensity and denies any visual loss [facility] Medical History (Updated 01/03/24 @ 14:27 by Miladis Peguero RN) Sleep apnea Pituitary adenoma HTN (hypertension) Abdominal pain GERD (gastroesophageal reflux disease) Surgical History Hx of colonoscopy History of esophagogastroduodenoscopy (EGD) Family History Mother Cancer Father HTN (hypertension) Brother Cancer Sister Cancer Social History Household Members Other:: lives with Alcohol intake: never Patient Tobacco Use Status: Never used Tobacco Current occupation: retired Physical Exam Vital Signs: Last Vital Signs Pulse 64 03/28/24 14:02 BP 144/60 H 03/28/24 14:02 BMI result Body Mass Index 35.6 Const Other: No cushingoid or acromegalic features. Thyroid gland is normal size weighs about 15 g. There was no loss of visual david by gross confrontation. Assessment & Plan Assessment & Plan (1) Pituitary adenoma: Comment: being [place] [place] Code(s): D35.2 - Benign neoplasm of pituitary gland Category: Medical Plan: This is a 73-year-old male with a history of pituitary macroadenoma. 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 MRI of the pituitary showed cavernous sinus invasion . Prolactin level normalized on 2.5 mg of bromocriptine? Most likely, either the initial prolactin or subsequent prolactin was measured correctly possibly affected by the hook affect. Saw Neurosurgery at [facility] Dr. Gallegos and felt that medical therapy should be continued Plan is to explain the pt with aninterpreter necessity of getting repeat prolactin down with serial dilution as well as repeat MRI. These results will also be forwarded to [facility] Coding Level of Care Code Est Pt Level 3 (47739) Diagnoses Pituitary adenoma D35.2
[2024-03-28 14:02] VITALS: BP 144/60; PULSE 64; BMI 35.6
== END 2024-03-28 14:44 | disposition home or self-care (01) ==
PROVIDERS: PCP Internal Medicine; Visit Provider Internal Medicine Endocrinology, Diabetes & Metabolism
DX: D35.2 Benign neoplasm of pituitary gland (principal)
CPT/HCPCS: 99213

== ENCOUNTER → 2024-03-28 13:56 | Outpatient (BNVA) | payer MEDICARE, OTHER, MEDICAID, SELFPAY | PROVIDERS: PCP Internal Medicine; Visit Provider Internal Medicine Endocrinology, Diabetes & Metabolism | DX: D35.2 Benign neoplasm of pituitary gland (principal) | CPT/HCPCS: 99212 ==

== ENCOUNTER 2024-04-26 12:50 | Outpatient (REF) | payer MEDICARE, OTHER, MEDICAID, SELFPAY ==
[2024-04-26] MEDS: gadobutroL 7.5 ML VIAL IVPUSH (14:03)
== END 2024-04-26 12:51 | disposition home or self-care (01) ==
LOC: HO.MRI 12:50
PROVIDERS: PCP Physician Assistant; Visit Provider Internal Medicine Endocrinology, Diabetes & Metabolism
DX: D35.2 Benign neoplasm of pituitary gland (principal)
CPT/HCPCS: 70553; A9585

== ENCOUNTER → 2024-04-26 13:06 | Outpatient (BNV) | payer MEDICARE, OTHER, MEDICAID, SELFPAY | PROVIDERS: PCP Physician Assistant; Visit Provider Radiology Diagnostic Radiology | DX: D35.2 Benign neoplasm of pituitary gland (principal) | CPT/HCPCS: 70553 ==

== ENCOUNTER 2024-05-28 13:23 | Outpatient (AMB) | payer MEDICARE, OTHER, MEDICAID, SELFPAY ==
--- NOTE | 2024-05-28 13:41 | A.OFFVIS_ITS ---
Vital Signs 05/28/24 13:42 Height 5 ft 10 in Weight 245 lb 9.519 oz BMI 35.2 BP 116/54 L Blood Pressure Location Lt brachial Position Sitting Pulse 74 Pulse Source Pulse Oximeter Pulse Oximetry (%) 95 Oxygen Delivery Method Room Air Intake Visit Reasons: f/u macroprolactinoma Intake Note: Patient present today for Macroprolactinoma follow up. Metalworking Specialist Required: Yes Metalworking Specialist Language: Train Control Technician Services: Metalworking Specialist Present Metalworking Specialist Name: Adelina Information Interpreted: non-clinical & clinical Accompanied by: Spouse Allergies Penicillins [PENICILLINS] Allergy (Severe, Verified 03/28/24 14:05) PASSED OUT lisinopril [LISINOPRIL] Adverse Reaction (Intermediate, Verified 03/28/24 14:05) HEADACHE/DIZZINESS metoprolol [METOPROLOL] Adverse Reaction (Intermediate, Verified 03/28/24 14:05) HEADACHE/DIZZINESS hydrochlorothiazide [HYDROCHLOROTHIAZIDE] Adverse Reaction (Unknown, Verified 03/28/24 14:05) LIGHTHEADNESS Medication List - Last Reconciled 05/28/24 by Felipe Gleason MD benzonatate 100 mg PO TID PRN bisacodyl (Dulcolax (bisacodyl)) 10 mg (2 x 5 mg) PO ONCE 1 day bromocriptine 2.5 mg PO DAILY famotidine 20 mg PO BEDTIME fluticasone propionate 50 mcg/actuation 2 sprays intranasal QAM PRN hydrochlorothiazide 25 mg PO DAILY lansoprazole 30 mg PO DAILY losartan 100 mg PO DAILY pantoprazole 20 mg PO BID polyethylene glycol 3350 (Miralax) 238 grams PO ONCE 1 day HPI Comments Details: This is a 73-year-old male referred to endocrinology for 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 . CT Scan showed a 17 by 23 x 21 mm suprasellar lesion with bony expansion of the sella turcica. There is no further workup provided. CT Scan was done for headache . No visual field was performed Currently, patient admits to occasional headache but c/o loss of vision in left . He denies any breast discharge. He denies any symptoms of enlargement of the hands or feet with symptoms of acromegaly. He denies any symptoms of Diana syndrome. No loss of libido . Workup showed the adenoma to be prolactin secreting. An MRI of the pituitary showed invasion of the cavernous sinus. Pt here to discuss today. He is tolerating the bromocriptine without problems. He states increase in libido. Denies any orthostatic symptoms Patient was referred to [facility] Dr. Gallegos and was felt that he is responding medically to bromocriptine and surgery was not necessary. He is currently on 2.5 mg of bromocriptine per day. The patient is a 73-year-old male presenting with a pituitary adenoma. He is currently undergoing treatment with bromocriptine 2.5 mg with no current symptoms of headaches or vision changes. His MRI results indicate a stable tumor size, with no recent changes noted. Prolactin levels have normalized, and there has been an improvement in libido and testosterone levels. There are no new adverse symptoms, and his appetite and weight are improving under current management. [facility] Medical History (Updated 01/03/24 @ 14:27 by Miladis Peguero RN) Sleep apnea Pituitary adenoma HTN (hypertension) Abdominal pain GERD (gastroesophageal reflux disease) Surgical History Hx of colonoscopy History of esophagogastroduodenoscopy (EGD) Family History Mother Cancer Father HTN (hypertension) Brother Cancer Sister Cancer Social History Household Members Other:: lives with Alcohol intake: never Patient Tobacco Use Status: Never used Tobacco Current occupation: retired Physical Exam Vital Signs: Last Vital Signs Pulse 74 05/28/24 13:42 BP 116/54 L 05/28/24 13:42 Pulse Ox 95 05/28/24 13:42 Oxygen Delivery Method Room Air 05/28/24 13:42 BMI result Body Mass Index 35.2 Const Other: No cushingoid or acromegalic features. Thyroid gland is normal size weighs about 15 g. There was no loss of visual david by gross confrontation. Assessment & Plan Assessment & Plan (1) Pituitary adenoma: Comment: being evaluated by Dr. [facility]ason[facility] Endocrinology Code(s): D35.2 - Benign neoplasm of pituitary gland Category: Medical Plan: This is a 73-year-old male with a history of pituitary macroadenoma. 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 MRI of the pituitary showed cavernous sinus invasion . Prolactin level normalized on 2.5 mg of bromocriptine Saw Neurosurgery at [facility] Dr. Gallegos and felt that medical therapy should be continued 1. Pituitary adenoma: The prolactin levels have normalized, showing improved endocrine function. The tumor remains stable with no change in size as per the MRI. The plan includes maintaining bromocriptine 2.5 mg, scheduled MRI in six months, and regular blood tests for hormone level monitoring including a repeat prolactin fasting as well as testosterone.Patient should follow up with Neurosurgery at [facility] The patient had an opportunity to ask questions regarding treatment plan. The patient expressed understanding and agreement with the above treatment plan. Patient was informed and verbally consented to the use of an ambient scribe for clinic note documentation during this visit. Orders: Orders Testosterone, Free/Total Today D35.2 - Benign neoplasm of pituitary gland Prolactin Today D35.2 - Benign neoplasm of pituitary gland MR head/brain wo/w con 5 Months D35.2 - Benign neoplasm of pituitary gland Prolactin 5 Months D35.2 - Benign neoplasm of pituitary gland Coding Level of Care Code Est Pt Level 3 (41814) Diagnoses Pituitary adenoma D35.2
[2024-05-28 13:42] VITALS: BP 116/54; PULSE 74; O2SAT 95; BMI 35.2
--- OUTSIDE RECORDS SUMMARY | 2024-05-28 16:12 | XMS_ITS | Encounter Summary ---
Author Organization [employer] [facility] Address [address] [place] [address] Care Team Providers Care Wrecking Crane Engine Operator Name Role Phone Sharmin Church MD Primary Care Provide r Reason for Visit * Reason Onset Date Comments FYI 01/08/2024 Encounter Details Date Type Department Care Team ([facility] Contact Info) Description 01/08/2024 Telephone [facility] [address], [place] [phone] Sharmin Church MD [address] [place] [address] FYI Social History Tobacco Use Types Packs/Day Years Used Date Smoking Tobacco: Never Passive Smoke Exposure: Never Smokeless Tobacco: Never Alcohol Use Standard Drinks/Week Comments Never 0 (1 standard drink = 0.6 oz pur e alcohol) Depression Answer Date Recorded Patient Health Questionnaire-9 Score 0 03/08/2023 Patient Health Questionnaire-9 Score 0 03/08/2023 Last PHQ-9: Questionnaire Data Not on file 1 05/09/2022 Housing Stability Answer Date Recorded What is your housing situation today? I have glenn navarro 03/08/[address] you li ve. Do you have problems with any of the following? None of the above 03/08/2023 Food Insecurity Answer Date Recorded Within the past 12 months, y ou worried that your food would run out before you got money to buy more: Sometimes True 2023 Within the past 12 months,th e food you bought just didn't last and you didn't have enough money to get more: Sometimes True 08/17/2023 Transportation Answer Date Recorded In the past 12 months, has l ack of transportation kept you from medical appts, meetings, work or from getting things needed for daily living? No 03/08/2023 Utilities Answer Date Recorded In the past 12 months, has t he electric, gas, oil or water company threatened to shut off services in your home? No 03/08/2023 Depression Answer Date Recorded Patient Health Questionnaire-2 Score 0 03/08/2023 Sex and Gender Information Value Date Recorded Sex Assigned at Male 01/17/2022 10:22 AM EDT Legal Sex Male 10:22 AM EDT Gender Identity Male 01/17/2022 10:22 AM EDT Sexual Orientation Straight 01/17/2022 10 :22 AM EDT documented as of this encounter Miscellaneous Notes * Telephone Encounter - Aileen Silva RN - 01/08/2024 10:55 AM EDT FYI pt. Currently undergoing treatment for pituitary macroadenoma, colonoscopy was cancelled. Per [place] [facility] [place] 11/27/23: This is a 73-year-old male with a history of pituitary macroadenoma. 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 MRI of the pituitary showed cavernous sinus invasion . Prolactin level normalized on 2.5 mg of bromocriptine. Most likely, either the initial prolactin or subsequent prolactin was measured correctly possibly affected by the hook affect Plan is to explain the pt with aninterpreter necessity of seeing a experienced neurosurgeon The other option depending upon pituitary MRI could be surgical resection and would like to refer the patient to expert pituitary neurosurgeon. Will prescribe 2.5 mg bromocriptine with the expectation of titrating upward assuming no side effects every 5-7 days checking prolactin. He is going to coordinate getting an appointment with the neurosurgeon at [facility]. . Will talk to [facility] to see if they can run serial dilutions on the repeat prolactin level get accurate measure. We will continue the bromocriptine 2.5 mg for now. With the help of mold sprayer explained the necessity again of getting a expert Neurosurgery opinion at [facility] because of the aggressiveness of the adenoma invasion of the cavernous sinus Pt. Told Dr. Varela' office [facility] appt is scheduled for 02/05/24. Dr. Varela office is recommending pt. Is referred back to them when situation is stabilized (plan scanned in from their office) * Telephone Encounter - Augustin Perez - 01/08/2024 10:20 AM EDT Don Garcia at the office of Dr. Varela calling to inform PCP patient was scheduled for a colonoscopy exam on 01/04 however it was canceled by the anesthesiologist due to the patient having a aggressive pituitary please call to reschedule when patient is cleared for anesthesia any questions please call [phone] documented in this encounter Plan of Treatment Upcoming Encounters Date Type Department Care Team (Late st Contact Info) Description 07/24/2024 2:30 PM EDT Office Visit [facility] [address], [place] [phone] Eloina Raman, OD [address] [place] [address] documented as of this encounter Visit Diagnoses Not on filedocumented in this encounter Additional Health Concerns Assessment Noted Time PHQ-9 Depression Total Score: 0 03/08/20 23 9:16 AM EST documented as of this encounter Care Teams Wrecking Crane Engine Operator Relationship Specialty Start Date End Date Sharmin Church MD [address] [place] [address] PCP - General Family Medicine 11/10/20 documented as of this encounter
--- OUTSIDE RECORDS SUMMARY | 2024-05-28 16:12 | XMS_ITS | Clinical Summary ---
Author Organization [employer] [facility] Address [address] [place] [address] [address] [place] [address] Care Team Providers Care Moving Picture Operator Name Role Phone Sharmin Church MD Primary Care Provide r Allergies Active Allergy Reactions Criticality Noted Date Comments Chlorthalidone 05/04/2023 Dry mouth Penicillins Dizziness,Unknown Terbinafine 10/09/2014 Other reaction(s): Rash, itching Valsartan 05/04/2023 Stomach pain Medications cyclobenzaprine (Flexeril) 10 MG tablet Take 5 mg by mouth if needed in the morning, at noon, and at bedtime for muscle spasms. Active cholecalciferol (Vitamin D-3) 25 MCG (1000 UT) capsule Take 1 capsule by mouth at bed time. 07/23/19 20 Active diclofenac (Cataflam) 50 MG tablet Take 1 tablet by mouth in the morning and 1 tablet in the evening. 10/01/19 22 Active Propylene Glycol-Glycerin 1-0.3 % solution instill 1 drop by ophthalmic route 3- 4 times every day as needed 07/23/19 20 Active sodium chloride (Green Sea) 0.65 % nasal spray 1 spray every 3 (three) hours. 11/26/19 20 Active simethicone (Mylicon,Gas-X) 180 MG capsule take twice a day with meals 11/26/19 21 Active fluconazole (Diflucan) 150 MG tabletIndicatio ns:Tinea pedis of both feet Take 1 tablet (150 mg) by mouth 1 (one) time per week. 6 tablet 05/26/19 24 Active ciclopirox (Loprox) 0.77 % creamIndication s:Tinea pedis of both feet Apply topically 2 times daily. 15 g 05/26/19 24 Active Bisacodyl EC 5 MG EC tablet TAKE 2 TABLETS BY MOUTH AT 3 PM AND 2 TABLETS AT 7 PM THE DAY BEFORE COLONOSCOPY 04/07/19 24 Active Cyanocobalamin (Vitamin B-12) 2500 MCG sublingual tablet 08/11/19 23 Active ciclopirox (Penlac) 8 % solutionIndicat ions:Onychomyco sis Apply topically at bedtime. 6 mL 01/26/20 24 Active fluticasone (Flonase) 50 MCG/ACT nasal sprayIndication s:Nasal congestion INSTILL 2 SPRAYS IN EACH NOSTRIL ONCE DAILY NEEDED FOR ALLERGY 48 g 02/28/20 24 Active pantoprazole (ProtoNix) 20 MG EC tabletIndicatio ns:Gastroesopha geal reflux disease, unspecified whether esophagitis present TAKE 1 TABLET BY MOUTH TWICE DAILY 180 tablet 1 03/18/20 24 Active hydroCHLOROthia zide (HYDRODiuril) 50 MG tabletIndicatio ns:Primary hypertension Take 1 tablet (50 mg) by mouth Once per day. 30 tablet 11 04/10/19 25 026 Active losartan (Cozaar) 100 MG tabletIndicatio ns:Primary hypertension TAKE 1 TABLET BY MOUTH EVERY MORNING 30 tablet 11 05/21/19 25 Active losartan (Cozaar) 100 MG tabletIndicatio ns:Primary hypertension Take 1 tablet (100 mg) by mouth in the morning. 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 Assessment & Plan (01/26/2024 4:06 PM EST): Do not miss appointment with specialist continue taking bromocriptine as prescribed Tinea pedis of both feet 05/26/2023 Positive colorectal cancer screening using Colog uard test 04/04/2023 Colon cancer screening 03/08/2023 Health care maintenance 03/08/2023 Intertrigo 03/08/2023 Dermatitis 03/08/2023 Dental calculus 05/19/2022 Periodontal disease 05/19/2022 Osteoarthritis of both knees 03/02/2022 Chronic low back pain 03/02/2022 Pain in both knees 03/02/2022 Family history of prostate cancer 03/02/2022 Hypersomnia 03/02/2022 Mixed anxiety and depressive disorder 03/02/2022 Obesity 03/02/2022 Weight gain 03/02/2022 Vitamin D deficiency 04/14/2016 Hypertensive disorder 03/29/2016 Assessment & Plan (04/10/2024 10:42 AM EST): I went up on his hydrochlorothiazide I advised: - Aerobic exercise to reduce BP. Initial goal of 30 min walk 3-5x/week. Increase as tolerated. - low-sodium diet (goal: <2g/day) and heart healthy diet such as DASH to reduce BP and prevent ASCVD. - Home BP monitoring 1-2 x day with goal of <140/90. - Seek immediate medical attention for chest pain, palpitations, SOB, syncope, or sudden changes in mental status. - Do not change or discontinue current prescriptions without first consulting health care provider Assessment & Plan (01/26/2024 4:01 PM EST): Today a little elevated, it is likely patient is because today he was feeling upset I advise low Na diet and weight reduction C/w same medication regimen Assessment & Plan (08/25/2023 4:26 PM EDT): - Aerobic exercise to reduce BP. Initial goal of 30 min walk 3-5x/week. Increase as tolerated. - low-sodium diet (goal: <2g/day) and heart healthy diet such as DASH to reduce BP and prevent ASCVD. - Home BP monitoring 1-2 x day with goal of <140/90. - Seek immediate medical attention for chest pain, palpitations, SOB, syncope, or sudden changes in mental status. - Do not change or discontinue current prescriptions without first consulting health care provider Assessment & Plan (06/02/2023 3:49 PM EDT): Continue taking only hydrochlorothiazide x 10days, monitor Bps daily and note in log Follow-up with nurse visit in 10 days on red team to assess GI symptoms and to determine whether another agent is truly needed and if so, what it should be Assessment & Plan (05/26/2023 10:32 AM EST): - Aerobic exercise to reduce BP. Initial goal of 30 min walk 3-5x/week. Increase as tolerated. - low-sodium diet (goal: <2g/day) and heart healthy diet such as DASH to reduce BP and prevent ASCVD. - Home BP monitoring 1-2 x day with goal of <140/90. - Seek immediate medical attention for chest pain, palpitations, SOB, syncope, or sudden changes in mental status. - Do not change or discontinue current prescriptions without first consulting health care provider Assessment & Plan (03/08/2023 11:32 AM EST): Uncontrolled I added today chlorthalidone 25mg daily I advise: - Aerobic exercise to reduce BP. Initial goal of 30 min walk 3-5x/week. Increase as tolerated. - low-sodium diet (goal: <2g/day) and heart healthy diet such as DASH to reduce BP and prevent ASCVD. - Home BP monitoring 1-2 x day with goal of <140/90. - Seek immediate medical attention for chest pain, palpitations, SOB, syncope, or sudden changes in mental status. - Do not change or discontinue current prescriptions without first consulting health care provider Gastroesophageal reflux disease 03/29/2016 Assessment & Plan (04/10/2024 10:42 AM EST): I advise patient to avoid NSAIDs, spicy and acid food, I advise to eat at the same time every day, I advise to elevate the head of the bed and take medications as prescribe Irritable bowel syndrome 03/29/2016 Encounters Date Type Department Care Team Description 05/18/2024 Refill [facility] [address] [place] [address] Sharmin Church MD Primary hypertension 05/03/2024 Telephone [facility] [address] [place] [id number] Darrell, Joaltaf ALICIA MAY RECALL 04/10/2024 9:00 AM EST Office Visit [address] [address] Sharmin Church MD Skin tags, multiple acquired (Primary Dx); Prolactinoma (CMS/HCC); Periodontal disease; Primary hypertension; Gastroesophageal reflux disease, unspecified whether esophagitis present 04/10/2024 Travel 03/29/2024 Patient Outreach [facility] [address] [place] [address] Sharmin Church MD Pre-visit Planning ((Unable to reach for PVP screening or LVM)) 03/18/[address] [address] Radha Narvaez DO Gastroesophageal reflux disease, unspecified whether esophagitis present 02/28/2024 Refill [facility] [address] [place] [address] Sharmin Church MD Nasal congestion from Last 3 Months Immunizations Name Administration Dates Next Due Influenza High-dose Quadriva lent Preservative Free 01/20/2023,11/20/2019 Influenza Injectable Quadriv alant Preservative Free IIV4 MDCK 12/14/2021 Influenza Quadrivalent Adjuvanted 12/25/2020 Influenza injectable quadriv alent IIV4 with preservative 12/21/2014 Influenza injectable quadriv alent preservative free 11/10/2015 Influenza, High Dose Seasona l, Preservative Free 11/29/2016 Influenza, IIV3, injectable 01/27/2014 Influenza, trivalent, adjuvanted 11/23/2018,11/18 Moderna Covid-19 Vaccine 12+ 02/10/2021,07/29/19 21,06/30/2020 Pneumococcal Conjugate PCV 13 06/20/2017 Pneumococcal Polysaccharide PPSV23 01/07/2019 Tdap 05/16/2013 Family History Medical History Relation Name Comments Prostate cancer Brother Diabetes Father Heart attack Father Stroke Father Liver cancer Mother Breast cancer Sister Relation Name Status Comments Brother Father Mother Sister Social History Tobacco Use Types Packs/Day Years Used Date Smoking Tobacco: Never Passive Smoke Exposure: Never Smokeless Tobacco: Never Tobacco Cessation:Counseling Given: Not Answered Alcohol Use Standard Drinks/Week Comments Never 0 (1 standard drink = 0.6 oz pur e alcohol) Depression Answer Date Recorded Patient Health Questionnaire-9 Score 0 04/10/2024 Patient Health Questionnaire-9 Score 0 04/10/2024 Last PHQ-9: Questionnaire Data Not on file 0 04/10/2024 Housing Stability Answer Date Recorded What is [...] Date Recorded Patient Health Questionnaire-2 Score 0 04/10/2024 Sex and Gender Information Value Date Recorded Sex Assigned at Male 01/17/2022 10:22 AM EDT Legal Sex Male 10:22 AM EDT Gender Identity Male 01/17/2022 10:22 AM EDT Sexual Orientation Straight 01/17/2022 10 :22 AM EDT Last Filed Vital Signs Vital Sign Reading Time Taken Comments Blood Pressure 155/78 04/10/2024 9:20 AM EST w o ut meds Pulse 62 04/10/2024 9:20 AM EST Temperature 36 ??C (96.8 ??F) 04/10/2024 9:20 AM EST Respiratory Rate 20 04/10/2024 9:20 AM EST Oxygen Saturation 98% 04/10/2024 9:20 AM EST Inhaled Oxygen Concentration - - Weight 110 kg (243 lb 9.6 oz) 04/10/2024 9:20 AM EST Height 180.3 cm (5' 11 ) 04/10/2024 9:20 AM EST Body Mass Index 33.98 04/10/2024 9:20 AM EST Plan of Treatment Upcoming Encounters Date Type Department Care Team (Late st Contact Info) Description 07/24/2024 2:30 PM EDT Office Visit [facility] [address] [place] [address] Eloina Raman, OD [address] [place] [address] Health Maintenance Due Date Last Done Comments CT Colonography 1951 Colonoscopy 1950 Dental X-Ray: Full Mouth 1951 FIT 1951 FOBT 1950 Sigmoidoscopy 1951 Alcohol/Substance Use Screening 1963 Hepatitis C Screening 08/02/1969 Zoster Vaccines (1 of 2) 08/02/2001 Dental Oral Exam 08/31/2022 03/01/2022 Dental Prophylaxis 08/31/2022 03/01/2022 DTaP/Tdap/Td Vaccines (2 - Td or Tdap) 05/16/2023 05/16/2013 COVID-19 Vaccine ( - season) 2023 02/10/2021, 07/28/2020, 06/30/2020 Dental X-Ray: Bitewings 04/08/2024 04/07/19 24, 01/24/2023, 03/01/2022 SDOH Screening 08/16/2024 08/17/2023 Depression Screening 04/10/2025 04/10/2024, 04/10/19 25 Tobacco Screening 04/10/2025 04/10/2024 Colorectal Cancer Screening 03/21/2026 FIT DNA/Cologuard 03/21/2026 03/21/2023 Lipid Panel 06/24/2026 06/24/2021, 2020, 11/27/2019 RSV Patients and Patients Aged 60 years or older (1 - 1-dose 75+ series) 08/02/2026 Pneumococcal Vaccine: 50+ Years Completed 01/07/2019, 06/20/2017 Influenza Vaccine Completed 12/15/2023, , 12/14/2021, Additional history exists HIB Vaccines Aged Out No longer eligi ble based on patient's age to complete this topic HPV Vaccines Aged Out No longer eligi ble based on patient's age to complete this topic Hepatitis A Vaccines Aged Out No long er eligible based on patient's age to complete this topic Hepatitis B Vaccines Aged Out No long er eligible based on patient's age to complete this topic IPV Vaccines Aged Out No longer eligi ble based on patient's age to complete this topic Meningococcal Vaccine Aged Out No laurence esperanza eligible based on patient's age to complete this topic RSV under 20 months Aged Out No longe r eligible based on patient's age to complete this topic Rotavirus Vaccines Aged Out No longer eligible based on patient's age to complete this topic Procedures Procedure Name Priority Date/Time Associated Diagnosis Comments BITEWING - SINGLE RADIOGRAPHIC IMAGE Routine 04/07/2023 1:30 PM EST Full coverage crown needed for root canal-treated tooth LAB COLOGUARD?? COLON CANCER SCREEN Routine 03/21/2023 7:00 PM EST Colon cancer screening PROPHYLAXIS - ADULT Routine 03/01/2022 8 :00 AM EST PERIODIC ORAL EVALUATION - ESTABLISHED PATIENT Routine 03/01/2022 8:00 AM EST ZZZ HISTORICAL LIPID PANEL Routine 06/24/2021 9:38 AM EDT from Last 3 Months or Most Recently Relevant to Health Maintenance Results * (ABNORMAL) Cologuard?? colon cancer screening (03/21/2023 7:00 PM EST) Cologuard Result Positive( A) Negative 03/29/2023 6:47 AM EST [facility] (CLIA #:[id number]) Comment: POSITIVE TEST RESULT. A positive Cologuard result should be followed with a colonoscopy or visual examination of the colon. The normal value (reference range) for this assay is negative. TEST DESCRIPTION: Composite algorithmic analysis of stool DNA-biomarkers with hemoglobin immunoassay. ?? Quantitative values of individual biomarkers are not reportable and are not associated with individual biomarker result reference ranges. Cologuard is intended for colorectal cancer screening of adults of either sex, 45 years or older, who are at average-risk for colorectal cancer (CRC). Cologuard has been approved for use by the U.S. FDA. The performance of Cologuard was established in a cross sectional study of average-risk adults aged 50-84. Cologuard performance in patients ages 45 to 49 years was estimated by sub-group analysis of near-age groups. Colonoscopies performed for a positive result may find as the most clinically significant lesion: colorectal cancer [4.0%], advanced adenoma (including sessile serrated polyps greater than or equal to 1cm diameter) [20%] or non- advanced adenoma [31%]; or no colorectal neoplasia [45%]. These estimates are derived from a prospective cross-sectional screening study of 10,000 individuals at average risk for colorectal cancer who were screened with both Cologuard and colonoscopy. (Mike Rowland et al, N Engl J Med 2014;370(14):3556-5733.) Cologuard may produce a false negative or false positive result (no colorectal cancer or precancerous polyp present at colonoscopy follow up). A negative Cologuard test result does not guarantee the absence of CRC or advanced adenoma (pre-cancer). The current Cologuard screening interval is every 3 years. ([place] [employer] and [place] Multi-Society Task Force). Cologuard performance data in a 10,000 patient pivotal study using colonoscopy as the reference method can be accessed at the following location: www.[employer]/results. Additional description of the Cologuard test process, warnings and precautions can be found at [email or web address]. Stool specimen (specimen) 03/21/2023 7:00 PM EST 03/23/2023 1:48 PM EST us Sharmin Harrison MD LAB MOLECULAR DIAGNOS TICS ORDERABLES Final Result [facility] (CLIA #:[id number]) [place] [address] [address], * (ABNORMAL) LIPID PANEL (06/24/2021 9:38 AM EDT) Cholesterol 185 mg/dL [facility] Comment: Desirable Cholesterol: ?less than 200 mg/dL Borderline High Cholesterol: ??200-239 mg/dL High Cholesterol: ? greater than 239 mg/dL HDL Cholesterol 50 mg/dL [facility] Comment: Desirable HDL: ??greater than 40 mg/dL ?? Note: This HDL assay may give artificially ? low results in patients with liver disease. LDL Cholesterol Calculated 120 mg/dl [facility] Comment: Desirable LDL: ? less than 100 mg/dL Near Optimal/Above Optimal LDL: ??110-129 mg/dL Borderline High LDL: ? 130-159 mg/dL High LDL: ?160-189 mg/dL Very High LDL: ? greater than or equal to ?190 mg/dL Triglycerides 76 mg/dL [facility] Comment: Desirable Triglyceride: ? less than 150 mg/dL Borderline High Triglyceride ??150-199 mg/dL High Triglyceride: ?200-499 mg/dL Very High Triglyceride: ? greater than or equal to ? 5OO mg/dL Alanine Aminotransferase 19 0 - 40 U/L [facility] Albumin Level 3.7 3.5 - 5.0 g/dL [facility] Alkaline Phosphatase 48 39 - 117 U/L [facility] Aspartate Amino Transferase 15 5 - 37 U/L [facility] Bilirubin Direct 0.2 0.0 - 0.5 mg/dL [facility] Bilirubin Total 0.6 0.0 - 1.0 mg/dL [facility] Total Protein 6.9 6.5 - 8.0 g/dL [facility] Anion Gap 10(L) 12 - 20 [facility] Blood Urea Nitrogen 13 9 - 16 mg/dL [facility] Calcium 9.2 8.4 - 10.2 mg/dL [facility] Carbon Dioxide 27 22 - 29 mmol/L [facility] Chloride 105 96 - 108 mmol/L [facility] Creatinine, Serum 0.80 0.5 - 1.4 mg/dL [facility] Estimated Glomerular Filt Rate >60 [facility] Comment: NOTE: ??For -Vietnamese individuals, multiply the result ?by . ?? Chronic Kidney Disease: ??Estimated GFR < 60 mL/min/1.73m2 Severe Kidney Disease: ??Estimated GFR < 15 mL/min/1.73m2 Glucose Random 100 60 - 115 mg/dL [facility] Potassium 4.2 3.3 - 5.1 mmol/L [facility] Sodium 138 135 - 145 mmol/L [facility] Prostate Specific Antigen 0.58 <0.05 - 4.0 ng/mL [facility] Comment: PSA methodology: [employer] Chemiluminescent Microparticle Immunoassay 06/24/2021 9:38 AM EDT Sharmni Harrison MD HISTORICAL/NON ORDERA BLE LABS Final Result [facility] [address] from Last 3 Months or Most Recently Relevant to Health Maintenance Insurance MEDICARE [facility] Care Teams Moving Picture Operator Relationship Specialty Start Date End Date Sharmin Church MD [address] [place] [id number] PCP - General Family Medicine 11/10/20
--- OUTSIDE RECORDS SUMMARY | 2024-05-28 16:12 | XMS_ITS | Patient Health Record ---
Author Organization [facility] Address [address] [place] [address] Care Team Providers Care Cylinder Checker Name Role Phone Sharmin Jones M.D. Primary Care Provider Felipe Lewis [phone] Allergies Allergen (clinical drug ingredient) Drug/Non Drug Allergy documented on EMR Reaction Allergy Type Onset Date Status Penicillin Unknown Drug Allergy Active Reason For Referral No Information Medications Medication SIG (Take, Route, Frequency, Duration) Notes Start Date End Date Status Pantoprazole Sodium 20 MG TAKE 1 TABLET BY MOUTH EVERY 12 HOURS Oral for 90 Active Dulcolax (colon prep) 5 MG take at 3:00 p.m and 7:00p.m. Orally two tablets twice a day for one day for 1 day 08/14/2023 Active Valsartan 160 MG TAKE 1 TABLET BY LAURYN TH EVERY MORNING Oral for 90 Active MiraLax (colon prep) 17 GM/SCOOP 1 238Gm bottle mixed with Gatorade or Crystal Light Orally begin at 5:00 p.m. the day before the procedure for 1 day 08/14/2023 Active Fluticasone Propionate 50 MCG/ACT Nasal for 15 Active Chlorthalidone 25 MG Oral for 30 Active Immunizations Vaccine Route Administration Date Status Comme nts Influenza Unknown 12/06/2022 Administered Social History Tobacco Use: Social History Observation Description Date Details (start date - stop date) Never Smoker NA - NA Tobacco Use/Smoking Question Answer Notes Patient is a nonsmoker Alcohol Screen Question Answer Notes Did you have a drink containing alcohol in the p ast year? 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) Active confirmed Problem 208183715 Positive colorec stephanie cancer screening using Cologuard test (R19.5) Active confirmed Problem Serrated polyp of colon (743894166) Serrated polyp of colon (K63.5) Active confirmed Problem 433409102 Gastroesophageal reflux disease, unspecified whether esophagitis present (K21.9) Active confirmed Vital Signs Temperature 98.4 degrees Fahrenheit 08/09/2023 Blood pressure diastolic 00 mm Hg 08/09/2023 Height 5 ft 10 in in 08/09/2023 Blood pressure systolic 000 mm Hg 08/09/2023 Weight 256 lb 2 oz lbs 08/09/2023 BMI 36.75 kg/m2 08/09/2023 Encounters Encounter Location Date Provider Diagnosis [facility] [address] [place] [phone] 08/09/2023 Felipe Varela Personal history of colonic polyps Z86.010 ; Tubulovillous adenoma of colon K63.5 ; Colon cancer screening Z12.11 and Serrated polyp of colon K63.5 [facility] [address] [place] [phone] 08/09/2023 Felipe Varela [facility] [address] [place] [phone] 01/02/2024 Felipe Varela [facility] [address] [place] [phone] 01/04/2024 Felipe Varela Assessments Encounter Date Diagnosis (ICD Code) Assessment Notes Treatment Notes Treatment Clinical Notes Section Notes 08/09/2023 Personal history of colonic polyps (ICD-10 - Z86.010) Overall, Portillo appears well. We did review the findings on his colonoscopy from this past March in detail. I have recommended a followup colonoscopy for some time after this summer as he had multiple polyps, some of which were quite large and had more advanced histologic changes than a routine tubular adenoma. It Will be important to inspect the sites of the polypectomy and be sure there is no residual polyp tissue. Will also be important to be sure no other polyps remain in the colon given that the procedure in March was quite lengthy and had multiple polyps that had to be removed. We did review the rationale for this in regard to colon cancer prevention. Full consent was obtained for this, including risks of bleeding and perforation. The procedure will be done with monitored anesthesia care. He was given the below instructions regarding adjustment of his medications with procedure. Portillo was comfortable with this plan. Thank you again for allowing me to participate in Portillo's care. I shall continue to keep you advised of his progress. 08/09/2023 Tubulovillous adenoma of colon (ICD-10 - K63.5) Overall, Portillo appears well. We did review the findings on his colonoscopy from this past March in detail. I have recommended a followup colonoscopy for some time after this summer as he had multiple polyps, some of which were quite large and had more advanced histologic changes than a routine tubular adenoma. It Will be important to inspect the sites of the polypectomy and be sure there is no residual polyp tissue. Will also be important to be sure no other polyps remain in the colon given that the procedure in March was quite lengthy and had multiple polyps that had to be removed. We did review the rationale for this in regard to colon cancer prevention. Full consent was obtained for this, including risks of bleeding and perforation. The procedure will be done with monitored anesthesia care. He was given the below instructions regarding adjustment of his medications with procedure. Portillo was comfortable with this plan. Thank you again for allowing me to participate in Portillo's care. I shall continue to keep you advised of his progress. 08/09/2023 Colon cancer screening (ICD-10 - Z12.11) Do not take the Chlorthalidone on the day before or on the day of the colonoscopy Overall, Portillo appears well. We did review the findings on his colonoscopy from this past March in detail. I have recommended a followup colonoscopy for some time after this summer as he had multiple polyps, some of which were quite large and had more advanced histologic changes than a routine tubular adenoma. It Will be important to inspect the sites of the polypectomy and be sure there is no residual polyp tissue. Will also be important to be sure no other polyps remain in the colon given that the procedure in March was quite lengthy and had multiple polyps that had to be removed. We did review the rationale for this in regard to colon cancer prevention. Full consent was obtained for this, including risks of bleeding and perforation. The procedure will be done with monitored anesthesia care. He was given the below instructions regarding adjustment of his medications with procedure. Portillo was comfortable with this plan. Thank you again for allowing me to participate in Portillo's care. I shall continue to keep you advised of his progress. 08/09/2023 Serrated polyp of colon (ICD-10 - K63.5) Overall, Portillo appears well. We did review the findings on his colonoscopy from this past March in detail. I have recommended a followup colonoscopy for some time after this summer as he had multiple polyps, some of which were quite large and had more advanced histologic changes than a routine tubular adenoma. It Will be important to inspect the sites of the polypectomy and be sure there is no residual polyp tissue. Will also be important to be sure no other polyps remain in the colon given that the procedure in March was quite lengthy and had multiple polyps that had to be removed. We did review the rationale for this in regard to colon cancer prevention. Full consent was obtained for this, including risks of bleeding and perforation. The procedure will be done with monitored anesthesia care. He was given the below instructions regarding adjustment of his medications with procedure. Portillo was comfortable with this plan. Thank you again for allowing me to participate in Portillo's care. I shall continue to keep you advised of his progress. Plan Of Treatment Future Test Test Name Order Date COLONOSCOPY 04/06/2023 COLONOSCOPY 08/09/2023 Insurance Providers Payer Name Payer Address Payer Phone Subscriber Number Group Number Insured Name Patient Relationship to Insured Coverage Start Date Coverage End Date MEDICARE OF [facility] [address] [place] [address] [id number] PORTILLO LAW Self - patient is the insured [employer] [address] [place] [address] [phone] [id number] PORTILLO LAW Self - patient is the insured MEDICAID OF [id number] [address] [place] [phone] [id number] PORTILLO LAW Self - patient is the insured Medical (General) History Medical History History ICD Code Hypertension Sleep apnea--not using CPAP GERD-EGD > [address] Harrison--t old of a hiatal hernia Negative colonoscopy > 10 yrs ago with Titus Harrison Denies MA,DM,CVA,Lung disease,renal dise ase Positive Cologuard in 03/2023 Colonoscopy in March revealed multiple polyps, some of which were approximately 2 cm in size. A total of 8 polyps were removed. The pathology of these included tubulovillous adenomas, a serrated polyp, and tubular adenomas Surgical History Surgery Date(Month/Year)
--- OUTSIDE RECORDS SUMMARY | 2024-05-28 16:12 | XMS_ITS | Encounter Summary ---
Author Organization [facility] Address [address] 7t [place] [address] Care Team Providers Care Property Management Coordinator Name Role Phone Sharmin Church MD Primary Care Provide r Reason for Visit * Reason Comments Med Refill Encounter Details Date Type Department Care Team ([facility] st Contact Info) Description 05/18/[address] [facility] MEDICINE [address] [place], [place] [phone] Sharmin Church MD [address] [place], [place] [phone] Primary hypertension Social History Tobacco Use Types Packs/Day Years [...] AM EDT documented as of this encounter Plan of Treatment Upcoming Encounters Date Type Department Care Team (Late st Contact Info) Description 07/24/2024 2:30 PM EDT Office Visit [facility] OPTOMETRY [address] [place] [address] LamineEloina agrawal, OD [address] [place] [address] documented as of this encounter Visit Diagnoses Diagnosis Primary hypertension Unspecified essential hypertension documented in this encounter Additional Health Concerns Assessment Noted Time PHQ-9 Depression Total Score: 0 04/10/19 25 9:21 AM EST documented as of this encounter Care Teams Property Management Coordinator Relationship Specialty Start Date End Date Sharmin Church MD [address] [place] [address] PCP - General Family Medicine 11/10/20 documented as of this encounter
--- OUTSIDE RECORDS SUMMARY | 2024-05-28 16:12 | XMS_ITS | Encounter Summary ---
Author Organization [facility] Address [address] [place] [address] 7t [place] [address] Care Team Providers Care Cold Mill Supervisor Name Role Phone Sharmin Church MD Primary Care Provide r Reason for Visit * Reason Comments Med Refill Encounter Details Date Type Department Care Team ([facility] st Contact Info) Description 05/28/2022 Refill [facility] MEDICINE [address] [place], [place] [phone] Ping Rose, ANP [address] [place] [address] Primary hypertension Social History Tobacco Use Types Packs/Day Years Used Date Smoking Tobacco: Never Passive Smoke Exposure: Never Smokeless Tobacco: Never Alcohol Use Standard Drinks/Week Comments Never 0 (1 standard drink = 0.6 oz pur e alcohol) Depression Answer Date Recorded Patient Health Questionnaire-2 Score 1 03/03/2022 Sex and Gender Information Value Date Recorded Sex Assigned at Male 01/17/2022 10:22 AM EDT Legal Sex Male 10:22 AM EDT Gender Identity Male 01/17/2022 10:22 AM EDT Sexual Orientation Straight 01/17/2022 10 :22 AM EDT COVID-19 Exposure Response Date Recorded In the last 10 days, have yo u been in contact with someone who was confirmed or suspected to have Coronavirus/COVID-19? No / Unsure 05/19/2022 10:52 AM EST documented as of this encounter Miscellaneous Notes * Telephone Encounter - Radha Narvaez DO - 06/01/2022 1:43 PM EDT Already sent by PCP documented in this encounter Plan of Treatment Upcoming Encounters Date Type Department Care Team (Late st Contact Info) Description 07/24/2024 2:30 PM EDT Office Visit [facility] OPTOMETRY [address] [place], [place] [phone] Eloina Raman, OD [address] [place], [place] [phone] documented as of this encounter Visit Diagnoses Diagnosis Primary hypertension Unspecified essential hypertension documented in this encounter Care Teams Cold Mill Supervisor Relationship Specialty Start Date End Date Sharmin Church MD [address] [place], [place] [phone] PCP - General Family Medicine 11/10/20 documented as of this encounter
--- OUTSIDE RECORDS SUMMARY | 2024-05-28 16:12 | XMS_ITS | Encounter Summary ---
Author Organization [facility] Address [address] [place] [address] 7t [place] [address] Care Team Providers Care Nursing Consultant Name Role Phone Sharmin Church MD Primary Care Provide r Encounter Details Date Type Department Care Team (Late Contact Info) Description 05/20/2022 Abstract [facility]ULT D[facility]AL [address] [place] [address] Gail Jina [address] [place] [address] Social History Tobacco Use Types Packs/Day Years [...] AM EST documented as of this encounter Plan of Treatment Upcoming Encounters Date Type Department Care Team (Late Contact Info) Description 07/24/2024 2:30 PM EDT Office Visit [facility] OPTOMETRY [address] [place] [address] Eloina Raman, OD [address] [place] [address] documented as of this encounter Visit Diagnoses Not on filedocumented in this encounter Care Teams Nursing Consultant Relationship Specialty Start Date End Date Sharmin Church MD [address] [place] [address] PCP - General Family Medicine 11/10/20 documented as of this encounter
--- OUTSIDE RECORDS SUMMARY | 2024-05-28 16:12 | XMS_ITS | Encounter Summary ---
Author Organization [facility] Address [address] 7t [place] [address] Care Team Providers Care Student Affairs Vice President Name Role Phone Sharmin Church MD Primary Care Provide r Reason for Visit * Reason Onset Date Comments MAY RECALL 05/03/2024 Encounter Details Date Type Department Care Team ([facility] st Contact Info) Description 05/03/2024 Telephone [facility] MEDICINE [address] [place] [address] Maik Ramírez MA MAY RECALL Social History Tobacco Use Types Packs/Day Years [...] encounter Miscellaneous Notes * Telephone Encounter - Maik Ramírez MA - 05/03/2024 9:45 AM EST TC- Patient to schedule an appt (July Recall) with DR.Barciona Larios\Arjunronic conditions unable to reach.Mailed recall letter. documented in this encounter Plan of Treatment Upcoming Encounters Date Type Department Care Team (Late st Contact Info) Description 07/24/2024 2:30 PM EDT Office Visit [facility] OPTOMETRY [address] [place], [place] [phone] Eloina Raman, OD [address] [place] [address] documented as of this encounter Visit Diagnoses Not on filedocumented in this encounter Additional Health Concerns Assessment Noted Time PHQ-9 Depression Total Score: 0 04/10/19 25 9:21 AM EST documented as of this encounter Care Teams Student Affairs Vice President Relationship Specialty Start Date End Date Sharmin Church MD [address] [place], [place] [phone] PCP - General Family Medicine 11/10/20 documented as of this encounter
--- OUTSIDE RECORDS SUMMARY | 2024-05-28 16:12 | XMS_ITS ---
Author Organization [facility] Address [address] [place] [phone] Care Team Providers Care Interstate Bus Driver Name Role Phone Sharmin Jones M.D. Primary Care Provider Felipe Lewis [phone] REASON FOR VISIT screening,hx polyps,tubulovillous adenoma colon Encounters Encounter Location Date Provider Diagnosis [facility] [address] [place] [phone] 01/05/2024 Felipe Varela Plan Of Treatment No Information Progress Notes * NABILA LAWOB: (73 yo M)Acc No.[id number]:01/05/2024 COLON WITH MAC Patient:?ALEXANDERKEDARDANIEL MATTHEW ALDRIDGE Provider:?Felipe Varela MD :1950???Age:73 Y???Sex:Male Eliu e:01/05/2024 Address:[address] [place], [place] [phone] Pcp:Sharmin Jones M.D. Subjective: * Chief Complaints: * ???1. Screening,hx polyps,tu bulovillous adenoma colon. * Medical History:? Objective: * Vitals:? Assessment: Plan: * Treatment: * * The named appointment provid er may or may not be the originator of this progress note, and it is not deemed complete until electronically signed by the appointment provider. Sign off status: Pending * Provider:?Felipe Varela MD Date:? 024 Generated for Jm chambers/Georgette/Melvin on:?05/28/2024 04:12 PM EDT
--- OUTSIDE RECORDS SUMMARY | 2024-05-28 16:13 | XMS_ITS ---
Author Organization [facility] Address [address] [place] [phone] Care Team Providers Care Education Program Manager Name Role Phone Sharmin Jones M.D. Primary Care Provider UnaFelipe Neal [phone] REASON FOR VISIT new medication Encounters Encounter Location Date Provider Diagnosis [facility] [address] [place] [phone] 01/02/2024 Felipe Varela Plan Of Treatment No Information Progress Notes * NABILA LAWOB: (73 yo M)Acc No.[id number]:01/02/2024 Patient:?MATTHEW LAW :1950???Age:73 Y???Sex:Male Address:[address] [place] [phone] * true * Date:? Generated for Jm chambers/Georgette/eTransmitting on:?05/28/2024 04:12 PM EDT
--- OUTSIDE RECORDS SUMMARY | 2024-05-28 16:13 | XMS_ITS ---
Author Organization [facility] Address [address] [place] [phone] Care Team Providers Care Certified Medical Transcriptionist Name Role Phone Sharmin Jones M.D. Primary Care Provider Felipe Lewis [phone] REASON FOR VISIT tomorrow's procedure cx by anesthesiology Encounters Encounter Location Date Provider Diagnosis [facility] [address] [place] [phone] 01/04/2024 Felipe Varela Plan Of Treatment No Information Progress Notes * NABILA LAWOB: (73 yo M)Acc No.[id number]:01/04/2024 Patient:?ALEXANDERMATTHEW SHIELDS :1950???Age:73 Y???Sex:Male Address:[address] [place] [address] * true * Date:? Generated for Marieli reyes/Georgette/eTransmitting on:?05/28/2024 04:12 PM EDT
--- OUTSIDE RECORDS SUMMARY | 2024-05-28 16:13 | XMS_ITS | Encounter Summary ---
Author Organization [facility] Address [address] [place] [address] [address] [place] [address] Care Team Providers Care Plate Mill Hand Name Role Phone Sharmin Church MD Primary Care Provide r Reason for Visit * Reason Comments Med Refill Encounter Details Date Type Department Care Team (Late st Contact Info) Description 05/04/2022 Refill [facility] MEDICINE [address] [place], [place] [phone] Ping Rose, ANP [address] [place] [address] Primary hypertension Social History Tobacco Use Types [...] suspected to have Coronavirus/COVID-19? No / Unsure 04/18/2022 12:55 PM EST documented as of this encounter Plan of Treatment Upcoming Encounters Date Type Department Care Team (Late Contact Info) Description 07/24/2024 2:30 PM EDT Office Visit [facility] OPTOMETRY [address] [place] [address] LamineEloina, OD [address] [place] [address] documented as of this encounter Visit Diagnoses Diagnosis Primary hypertension Unspecified essential hypertension documented in this encounter Care Teams Plate Mill Hand Relationship Specialty Start Date End Date Sharmin Church MD [address] [place] [address] PCP - General Family Medicine 11/10/20 documented as of this encounter
== END 2024-05-28 14:22 | disposition home or self-care (01) ==
LOC: HO.ENCR 13:24
PROVIDERS: PCP Internal Medicine; Visit Provider Internal Medicine Endocrinology, Diabetes & Metabolism
DX: D35.2 Benign neoplasm of pituitary gland (principal)
CPT/HCPCS: 99213

== ENCOUNTER → 2024-05-28 13:23 | Outpatient (BNVA) | payer MEDICARE, OTHER, MEDICAID, SELFPAY | PROVIDERS: PCP Internal Medicine; Visit Provider Internal Medicine Endocrinology, Diabetes & Metabolism | DX: D35.2 Benign neoplasm of pituitary gland (principal) | CPT/HCPCS: 99212 ==

== ENCOUNTER 2024-07-19 09:56 | Outpatient (REF) | payer MEDICARE, OTHER, MEDICAID, SELFPAY ==
--- OUTSIDE RECORDS SUMMARY | 2024-07-19 10:56 | XMS_ITS | Encounter Summary ---
Author Organization [facility] Address [address] [place] [address] 7t [place] [address] Care Team Providers Care Cabinetmaker Helper Name Role Phone Sharmin Church MD Primary Care Provide r Reason for Visit * Reason Comments Med Refill Encounter Details Date Type Department Care Team ([facility] st Contact Info) Description 05/28/2022 Refill [facility] [address] [place], [place] [phone] Ping Rose, ANP [address] [place] [address] Primary hypertension Social History Tobacco Use Types [...] Care Team (Late st Contact Info) Description 08/19/2024 2:00 PM EDT Office Visit [facility] [address] [place] [address] 10/04/2024 10:15 AM EDT Office Visit [facility] [address] [place] [address] Oniel Celaya MD [address] [place] [address] 11/20/2024 2:00 PM EDT Office Visit [facility] OPTOM[facility] [address] [place] [address] Eloina Raman, OD [address] [place] [address] documented as of this encounter Visit Diagnoses Diagnosis Primary hypertension Unspecified essential hypertension documented in this encounter Care Teams Cabinetmaker Helper Relationship Specialty Start Date End Date Sharmin Church MD [address] [place] [address] PCP - General Family Medicine 11/10/20 documented as of this encounter
--- OUTSIDE RECORDS SUMMARY | 2024-07-19 10:56 | XMS_ITS | Clinical Summary ---
Author Organization [employer] Address [address] [place] [address] 7t [place] [address] Care Team Providers Care Bakery Decorator Name Role Phone Sharmin Church MD Primary Care Provide r Allergies Active Allergy Reactions Criticality Noted Date Comments Chlorthalidone 05/04/2023 Dry mouth Penicillins Dizziness,Unknown Terbinafine 10/09/2014 Other reaction(s): Rash, itching Valsartan 05/04/2023 Stomach pain Medications Cyanocobalamin (Vitamin B-12) 2500 MCG sublingual tablet 08/11/19 23 Active fluticasone (Flonase) 50 MCG/ACT nasal sprayIndication [...] per day. 30 tablet 11 04/10/19 25 2025 Active losartan (Cozaar) 100 MG tabletIndicatio ns:Primary hypertension TAKE 1 TABLET BY MOUTH EVERY MORNING 30 tablet 11 05/21/19 25 Active bromocriptine (Parlodel) 2.5 MG tablet Take 1 tablet by mouth Once per day. 06/14/19 25 Active cabergoline (Dostinex) 0.5 MG tablet Take 0.5 mg by mouth 2 (two) times a week. 10/23/19 24 Active polyethylene glycol, PEG, 3350 (Glycolax) 17 GM/SCOOP powder MIX 238 GRAMS WITH gatorade OR crystal light AND BEGIN DRINK AT 5 IN THE EVENING BEFORE PROCEDURE DIRECTED 01/02/20 24 Active naproxen sodium (Aleve) 220 MG tablet Take 1 tablet (220 mg) by mouth if needed in the morning and at bedtime for mild pain. 60 tablet 06/22/19 25 2024 Active cyclobenzaprine (Flexeril) 5 MG tablet Take 1 tablet (5 mg) by mouth at bedtime. 30 tablet 06/22/19 Active ketoconazole (NIZOral) 2 % creamIndication s:Tinea pedis of both feet,Tinea corporis Apply topically Once per day for 14 days. 60 g 1 07/20/19 25 2024 Active cyclobenzaprine (Flexeril) 10 MG tablet Take 5 mg by mouth if needed in the morning, at noon, and at bedtime for muscle spasms. 2024 Discontinued(R eorder (will not trigger notification to Pharmacy)) cholecalciferol (Vitamin D-3) 25 MCG (1000 UT) capsule Take 1 capsule by mouth at bed time. 07/23/19 20 2024 Discontinued(T herapy completed) diclofenac (Cataflam) 50 MG tablet Take 1 tablet by mouth in the morning and 1 tablet in the evening. 10/01/19 22 2024 Discontinued(T herapy completed) Propylene Glycol-Glycerin 1-0.3 % solution instill 1 drop by ophthalmic route 3- 4 times every day as needed 07/23/19 20 2024 Discontinued(T herapy completed) sodium chloride (Doddridge) 0.65 % nasal spray 1 spray every 3 (three) hours. 11/26/19 20 2024 Discontinued(T herapy completed) simethicone (Mylicon,Gas-X) 180 MG capsule take twice a day with meals 11/26/19 21 2024 Discontinued(T herapy completed) fluconazole (Diflucan) 150 MG tabletIndicatio ns:Tinea pedis of both feet Take 1 tablet (150 mg) by mouth 1 (one) time per week. 6 tablet 05/26/19 24 2024 Discontinued(T herapy completed) ciclopirox (Loprox) 0.77 % creamIndication s:Tinea pedis of both feet Apply topically 2 times daily. 15 g 05/26/19 24 2024 Discontinued(T herapy completed) Bisacodyl EC 5 MG EC tablet TAKE 2 TABLETS BY MOUTH AT 3 PM AND 2 TABLETS AT 7 PM THE DAY BEFORE COLONOSCOPY 04/07/19 24 2024 Discontinued(T herapy completed) ciclopirox (Penlac) 8 % solutionIndicat ions:Onychomyco sis Apply topically at bedtime. 6 mL 01/26/20 24 2024 Discontinued(T herapy completed) Active Problems Problem Noted Date Diagnosed Date [...] uard test 04/04/2023 Colon cancer screening 03/08/2023 Intertrigo 03/08/2023 Dermatitis 03/08/2023 Dental calculus 05/19/2022 Periodontal disease 05/19/2022 Osteoarthritis of both knees 03/02/2022 Chronic low back pain 03/02/2022 Assessment & Plan (06/21/2024 11:55 AM EDT): Low back pain, likely of MSK nature without red flags on history or exam - Naproxen BID as needed for anti inflammatory - Flexeril for nigthtime - referral for pain management - he will monitor how he is feeling and decide whether to cut back on hours driving or not - ER precautions for worsening pain, incontinence, fever, or focal weakness Pain in both knees 03/02/2022 Family history of prostate cancer 03/02/2022 Hypersomnia 03/02/2022 Mixed anxiety and depressive disorder 03/02/2022 Obesity 03/02/2022 Vitamin D deficiency 04/14/2016 Hypertensive disorder 03/29/2016 Assessment & Plan (06/21/2024 11:57 AM EDT): Not at goal now, he is inpain Will followup with PCP regarding BP and concerns about treatment for macroadenoma Assessment & Plan (04/10/2024 10:42 AM EST): [...] medications as prescribe Irritable bowel syndrome 03/29/2016 Resolved Problems Problem Noted Date Diagnosed Date Resolved Date Health care maintenance 03/08/2023 04/0 06/2024 Weight gain 03/02/2022 06/21/2024 Encounters Date Type Department Care Team Description 07/19/2024 9:20 AM EDT Office Visit [facility] [address] [place] [address] [phone] Tinea pedis of both feet (Primary Dx); Tinea corporis; Prediabetes 07/19/2024 Travel 06/21/2024 11:20 AM EDT Office Visit [facility] [address] [place] [address] Latasha Hernández MD Chronic low back pain, unspecified back pain laterality, unspecified whether sciatica present (Primary Dx); Dietary counseling; Exercise counseling; Class 1 obesity with serious comorbidity and body mass index (BMI) of 34.0 to 34.9 in adult, unspecified obesity type; Primary hypertension 06/19/2024 Telephone [facility] [address] [place] [address] Sharmin Church MD 05/31/2024 Population Health Risk Score Community [facility] ([facility] Department [address] [place] [address] [phone] Provider, Population Health Generic 05/18/2024 Refill [facility] [address] [place] [address] Sharmin Church MD Primary hypertension 05/03/2024 Telephone [facility] [address] [place] [address] Maik Ramírez MA MAY RECALL from Last 3 Months Immunizations Name Administration Dates Next Due Influenza High-dose Quadriva lent Preservative Free 01/20/2023,11/20/2019 Influenza Injectable Quadriv alant Preservative Free IIV4 MDCK 12/14/2021 Influenza Quadrivalent Adjuvanted 12/25/2020 Influenza injectable quadriv alent IIV4 with preservative 12/21/2014 Influenza injectable quadriv alent preservative free 11/10/2015 Influenza, High Dose Seasona l, Preservative Free 12/15/2023,11/29/2016 Influenza, IIV3, injectable 01/27/2014 Influenza, trivalent, adjuvanted [...] Sign Reading Time Taken Comments Blood Pressure 156/75 07/19/2024 9:22 AM EDT Pulse 59 07/19/2024 9:22 AM EDT Temperature 36.8 ??C (98.3 ??F) 07/19/2024 9:22 AM ED T Respiratory Rate 16 07/19/2024 9:22 AM EDT Oxygen Saturation 98% 07/19/2024 9:22 AM EDT Inhaled Oxygen Concentration - - Weight 111 kg (243 lb 12.8 oz) 07/19/2024 9:22 A M EDT Height 180.3 cm (5' 11 ) 06/21/2024 10:54 AM EDT Body Mass Index 34 06/21/2024 10:54 AM EDT Plan of Treatment Upcoming Encounters Date Type Department Care Team (Late st Contact Info) Description 08/19/2024 2:00 PM EDT Office Visit [facility] [address] [place] [address] 10/04/2024 10:15 AM EDT Office Visit [facility] [address] [place] [address] Oniel Celaya MD [address] [place] [address] 11/20/2024 2:00 PM EDT Office Visit [facility] [address] [place] [address] Lamine, Eloina, OD [address] [place] [address] Health Maintenance Due Date Last Done Comments CT Colonography 1951 Colonoscopy 1951 Dental X-Ray: Full Mouth 1951 FIT 1951 FOBT 1951 Sigmoidoscopy 1951 Alcohol/Substance Use Screening 1963 Hepatitis C Screening 08/02/1969 Zoster Vaccines (1 of 2) 08/02/2001 Diabetes: Hemoglobin A1C 06/24/2022 022, 11/17/2020, 11/27/2019 Dental Oral Exam 08/31/2022 03/01/2022 Dental Prophylaxis 08/31/2022 03/01/2022 DTaP/Tdap/Td Vaccines (2 - Td or Tdap) 05/16/2023 05/16/2013 COVID-19 Vaccine ( season) 2023 02/10/2021, 07/28/2020, 06/30/2020 Dental X-Ray: Bitewings 04/08/2024 04/07/19 24, 01/24/2023, 03/01/2022 SDOH Screening 08/16/2024 08/17/2023 Depression Screening 04/10/2025 04/10/2024, 04/10/19 25 Tobacco Screening 06/21/2025 06/21/2024 Colorectal Cancer Screening 03/21/2026 FIT DNA/Cologuard 03/21/2026 [...] Routine 03/01/2022 8:00 AM EST [facility] HISTORICAL HEMOGLOBIN A1C Routine 06/24/2021 9:38 AM EDT [facility] HISTORICAL LIPID PANEL Routine 06/24/2021 9:38 AM EDT from Last 3 Months or Most Recently Relevant to Health Maintenance Results * (ABNORMAL) Cologuard?? colon cancer screening (03/21/2023 7:00 PM EST) Cologuard Result Positive( A) Negative 03/29/2023 6:47 AM EST [facility] (CLIA #:[id number]) Comment: POSITIVE TEST RESULT. A positive Cologuard [...] Rowland et al, N Engl J Med 2014;370(14):1224-7314.) Cologuard may produce a false negative or false positive result (no colorectal cancer or precancerous polyp present at colonoscopy follow up). A negative Cologuard test result does not guarantee the absence of CRC or advanced adenoma (pre-cancer). The current Cologuard screening interval is every 3 years. ([place] [employer] Society and U.S. Multi-Society Task Force). Cologuard performance data in a 10,000 patient pivotal study using colonoscopy as the reference method can be accessed at the following location: www.IntraStage/results. Additional description of the Cologuard test process, warnings and precautions can be found at www.[employer]. Stool specimen (specimen) 03/21/2023 7:00 PM EST 03/23/2023 1:48 PM EST us Sharmin Harrison MD LAB MOLECULAR DIAGNOS TICS ORDERABLES Final Result [facility] (CLIA #:[id number]) [place] [address], * HEMOGLOBIN A1C (06/24/2021 9:38 AM EDT) Estimated Average Glucose 123 mg/dL [facility] Comment: eAG = Estimated average glucose which is %A1C expressed as average glucose, using the formula of the Y0G-Gocridy Average Glucose study (ADAG), Diabetes Care, Vol.31,#8, Aug. 2007 Hemoglobin A1c % 5.9 % [facility] Comment: ?Hemoglobin A1C Reference Range ?Adults: ??4.8 - 6.0 % ?Non diabetic: ??< 6.0 % ?Goal: ??< 7.0 % Additional Action Suggested: ??> 8.0 % ?? Note: ??Hemoglobin A1c results are invalid for patients ?with abnormal amounts of HbF. ??Blood transfusions ?may impact the HbA1c concentration in the patient ?sample. 06/24/2021 9:38 AM EDT us Sharmin Harrison MD HISTORICAL/NON ORDERA BLE LABS Final Result [facility] [address] * (ABNORMAL) LIPID PANEL (06/24/2021 9:38 AM [...] liver disease. LDL Cholesterol Calculated 120 mg/dl [facility] Comment: Desirable LDL: ? less [...] >60 [facility] Comment: NOTE: ??For -[place] individuals, multiply the result ?by . ?? [...] [facility] Comment: PSA methodology: Galindo Sample Tester Chemiluminescent Microparticle Immunoassay 06/24/2021 9:38 AM EDT us Sharmin Harirson MD HISTORICAL/NON ORDERA BLE LABS Final Result [facility] [address] from Last 3 Months or Most Recently Relevant to Health Maintenance Insurance MEDICARE [facility] Care Teams Bakery Decorator Relationship Specialty Start Date End Date Sharmin Church MD [address] [place] [phone] PCP - General Family Medicine 8/24/21
--- OUTSIDE RECORDS SUMMARY | 2024-07-19 10:56 | XMS_ITS | Encounter Summary ---
Author Organization [employer] [facility] Address [address] [place] [address] 7t [place] [address] Care Team Providers Care Pet Care Assistant Name Role Phone Sharmin Church MD Primary Care Provide r Encounter Details Date Type Department Care Team ([facility] Contact Info) Description 05/20/2022 Abstract [facility] [address] [place], [place] [phone] Jina Reynolds [address] [place] [address] Social History Tobacco Use Types Packs/Day Years [...] Upcoming Encounters Date Type Department Care Team ([facility] Contact Info) Description 08/19/2024 2:00 PM EDT Office Visit [facility] [address] [place], [place] [phone] 10/04/2024 10:15 AM EDT Office Visit [facility] [address] [place] [address] Oniel Celaya MD [address] [place] [address] 11/20/2024 2:00 PM EDT Office Visit [facility] [address] [place] [address] Eloina Raman, JANAY [address] [place] [address] documented as of this encounter Visit Diagnoses Not on filedocumented in this encounter Care Teams Pet Care Assistant Relationship Specialty Start Date End Date Sharmin Church MD [address] [place] [address] PCP - General Family Medicine 11/10/20 documented as of this encounter
--- OUTSIDE RECORDS SUMMARY | 2024-07-19 10:56 | XMS_ITS | Encounter Summary ---
Author Organization [facility] Address [address] [place] [address] 7t [place] [address] Care Team Providers Care Mold Making Plastics Sheets Supervisor Name Role Phone Sharmin Church MD Primary Care Provide r Reason for Visit * Reason Comments Med Refill Encounter Details Date Type Department Care Team (Late st Contact Info) Description 05/04/2022 Refill [facility] [address] [place], [place] [phone] Ping Rose, ANP [address] [place] [address] Primary hypertension Social History Tobacco Use Types [...] Description 08/19/2024 2:00 PM EDT Office Visit [facility] [address] [place] [address] 10/04/2024 10:15 AM EDT Office Visit [facility] [address] [place] [address] Oniel Celaya MD [address] [place] [address] 11/20/2024 2:00 PM EDT Office Visit [facility] [address] [place], [place] [phone] Eloina Raman, OD [address] [place] [address] documented as of this encounter Visit Diagnoses Diagnosis Primary hypertension Unspecified essential hypertension documented in this encounter Care Teams Mold Making Plastics Sheets Supervisor Relationship Specialty Start Date End Date Sharmin Church MD [address] [place] [address] PCP - General Family Medicine 11/10/20 documented as of this encounter
--- OUTSIDE RECORDS SUMMARY | 2024-07-19 10:56 | XMS_ITS | Encounter Summary ---
Author Organization [employer] [facility] Address [address] [facility] [address]t [place] [address] Care Team Providers Care Power Plant Engineer Name Role Phone Sharmin Church MD Primary Care Provide r Reason for Visit * Reason Onset Date Comments FYI 01/08/2024 Encounter Details Date Type Department Care Team ([facility] Contact Info) Description 01/08/2024 Telephone [facility] [address] [place], [place] [phone] Sharmin Church MD [address] [place] [address] FYI Social History Tobacco Use Types Packs/Day [...] macroadenoma, colonoscopy was cancelled. Per last [facility] endo note 11/27/23: This is a 73-year-old [...] getting an appointment with the neurosurgeon at [facility]. . Will talk to [facility] to see if they can run serial dilutions on the repeat prolactin level get accurate measure. We will continue the bromocriptine 2.5 mg for now. 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 Told Dr. Varela' office [facility] appt is scheduled for 02/05/24. Dr. Varela office is recommending pt. Is referred back to them when situation is stabilized (plan scanned in from their office) * Telephone Encounter - Augustin Lemus - 01/08/2024 10:20 AM EDT Tc from Radha at the office of Dr. Varela calling to inform PCP patient was scheduled for a colonoscopy exam on 01/04 however it was canceled by the anesthesiologist due to the patient having a aggressive pituitary please call to reschedule when patient is cleared for anesthesia any questions please call [phone] documented in this encounter Plan of Treatment Upcoming Encounters Date Type Department Care Team (Late st Contact Info) Description 08/19/2024 2:00 PM EDT Office Visit [facility] [address] [place] [address] 10/04/2024 10:15 AM EDT Office Visit [facility] [address] [place] [address] Oniel Celaya MD [address] [place] [address] 11/20/2024 2:00 PM EDT Office Visit [facility] [address] [place] [address] Lamine, Eloina, OD [address] [place] [address] documented as of this encounter Visit Diagnoses Not on filedocumented in this encounter Additional Health Concerns Assessment Noted Time PHQ-9 Depression Total Score: 0 03/08/20 23 9:16 AM EST documented as of this encounter Care Teams Power Plant Engineer Relationship Specialty Start Date End Date Sharmin Church MD [address] [place] [address] PCP - General Family Medicine 11/10/20 documented as of this encounter
--- OUTSIDE RECORDS SUMMARY | 2024-07-19 10:56 | XMS_ITS | Encounter Summary ---
Author Organization [facility] Address [address] [facility] 7t [place] [address] Care Team Providers Care Material Distributor Name Role Phone Sharmin Church MD Primary Care Provide r Reason for Visit * Reason Comments Foot Itching Encounter Details Date Type Department Care Team ([facility] st Contact Info) Description 07/19/2024 9:20 AM EDT Office Visit [facility] [address] [place] [phone] Tinea pedis of both feet (Primary Dx); Tinea corporis; Prediabetes Social History Tobacco Use Types Packs/Day Years [...] AM EDT documented as of this encounter Last Filed Vital Signs Vital Sign Reading [...] oz) 07/19/2024 9:22 A M EDT Height - - Body Mass Index 34 06/21/2024 10:54 AM EDT documented in this encounter Plan of Treatment Upcoming Encounters Date Type Department Care Team (Late st Contact Info) Description 08/19/2024 2:00 PM EDT Office Visit [facility] [address] [place] [address] 10/04/2024 10:15 AM EDT Office Visit [facility] [address] [place] [address] Oniel Celaya MD [address] [place] [address] 11/20/2024 2:00 PM EDT Office Visit [facility] [address] [place] [address] Eloina Raman, OD [address] [place] [address] Scheduled Orders Name Type Priority Associated Diagnoses Orde r Schedule Basic Metabolic Panel Lab Routine Tinea pedis of both feet Tinea corporis Expected: 07/19/2024 (Approximate), Expires: 07/19/2025 Hemoglobin A1c Lab Routine Prediabetes Expected: 07/19/2024 (Approximate), Expires: 07/19/2025 documented as of this encounter Visit Diagnoses Diagnosis Tinea pedis of both feet- Primary Tinea corporis Dermatophytosis of the body Prediabetes Other abnormal glucose documented in this encounter Additional Health Concerns Assessment Noted Time PHQ-9 Depression Total Score: 0 04/10/19 25 9:21 AM EST documented as of this encounter Care Teams Material Distributor Relationship Specialty Start Date End Date Sharmin Church MD [address] [place] [phone] PCP - General Family Medicine 11/10/20 documented as of this encounter
--- OUTSIDE RECORDS SUMMARY | 2024-07-19 10:56 | XMS_ITS | Encounter Summary ---
Author Organization [employer] [facility] Address [address] [facility] 7t [place] [address] Care Team Providers Care Automation/Controls Manager Name Role Phone Sharmin Church MD Primary Care Provide r Encounter Details Date Type Department Care Team (Latest Contact Info) Description 07/19/2024 Travel Social History Tobacco Use Types Packs/Day Years [...] Description 08/19/2024 2:00 PM EDT Office Visit [facility] [address] [place] [address] 10/04/2024 10:15 AM EDT Office Visit [facility] [address] [place] [address] Oniel Celaya MD [address] [place] [address] 11/20/2024 2:00 PM EDT Office Visit [facility] [address] [place] [address] Lamine, Eloina, OD [address] [place] [address] documented as of this encounter Visit Diagnoses Not on filedocumented in this encounter Additional Health Concerns Assessment Noted Time PHQ-9 Depression Total Score: 0 04/10/19 25 9:21 AM EST documented as of this encounter Care Teams Automation/Controls Manager Relationship Specialty Start Date End Date Sharmin Church MD [address] [place] [address] PCP - General Family Medicine 11/10/20 documented as of this encounter
[2024-07-19 11:38] LABS: Anion Gap 9 (12-20); Blood Urea Nitrogen 12 mg/dL (9-16); Calcium 9.2 mg/dL (8.4-10.2); Carbon Dioxide 29 mmol/L (22-29); Chloride 106 mmol/L (96-108); Estimated Glomerular Filt Rate > 60; Glucose Random 107 mg/dL (60-115); Potassium 4.4 mmol/L (3.3-5.1); Sodium 140 mmol/L (135-145)
[2024-07-19 11:47] LABS: Estimated Average Glucose 128 mg/dL; Hemoglobin A1C 151.5114 umol/L; Hemoglobin A1c % 6.1 % (<6.0); Total Hemoglobin (HGBA1C) 3520.9558 umol/L
[2024-07-20 05:44] LABS: Prolactin 2.5 ng/mL (2.0-18.0)
[2024-07-25 16:38] LABS: Testosterone, Free 36.7 pg/mL (30.0-135.0); Testosterone, Total 228 ng/dL (250-1100)
== END 2024-07-19 09:57 | disposition home or self-care (01) ==
LOC: HO.HHCL 09:56
PROVIDERS: Internal Medicine Endocrinology, Diabetes & Metabolism; Visit Provider Family Medicine
DX: D35.2 Benign neoplasm of pituitary gland (principal); R73.03 Prediabetes; B35.3 Tinea pedis; B35.4 Tinea corporis
CPT/HCPCS: 36415; 80048; 83036; 84146; 84402; 84403

== ENCOUNTER 2024-11-03 19:34 | Outpatient (REF) | payer MEDICARE, OTHER, MEDICAID, SELFPAY ==
--- NOTE | ~2024-11-03 | MR_ITS ---
EXAMINATION: MR BRAIN AND SELLA WITHOUT AND WITH CONTRAST CLINICAL INFORMATION: Benign neoplasm of pituitary gland. COMPARISON: To 725, 10/30/2023. TECHNIQUE: Multiplanar, multisequence MRI of the brain and sella was obtained before and after the intravenous administration of 5 mL Gadavist. Examination performed on a 1.5 Mirta Siemens high-field unit. FINDINGS: SELLA: Expansion of the sella turcica with smooth remodeling, severe thinning of the dorsum sella, and mild remodeling of the superior clivus. Redemonstration of T2 hyperintense, T1 hypointense oval mass lesion filling and expanding the sella turcica, oriented left of midline, currently measuring approximately 1.6 x 1.9 x 2.5 cm (AP, TRV, CC). This is unchanged when measured using similar technique, (previously 1.6 x 2.0 x 2.5 cm). The lesion appears to partially extend into the left cavernous sinus, encasing approximately 50% of the cavernous segment of the left ICA. No narrowing of the flow void. The lesion abuts but does not encase the cavernous right ICA. No right cavernous sinus invasion. There appears to be a curvilinear focus of normal enhancing pituitary tissue on the superior right margin of the mass. The pituitary infundibulum is normal in morphology and minimally deviated to the right. The suprasellar cistern remains widely patent. No abnormal mass effect on the optic chiasm or suprasellar structures. BRAIN: There is no diffusion restriction. There is no intracranial hemorrhage, acute infarction, mass effect, or edema. Mild prominence of the extra-axial spaces overlying the frontal lobes, unchanged. Ventricles, sulci, and cisterns are otherwise normal in size and configuration for patient age. No shift of midline. No significant white matter abnormalities. No abnormal intra or extra-axial enhancement after contrast administration. Midline structures appear normally formed. Posterior fossa structures appear normal. Cerebellar tonsils are appropriately located. Major flow voids are preserved within the skull base. The globes and orbital contents demonstrate no abnormalities. Paranasal sinuses are clear bilaterally. The mastoids and tympanic cavities are normally aerated. Extracranial soft tissues demonstrate no abnormalities. No suspicious bone marrow signal alterations are evident. MR/MR head/brain wo/w con IMPRESSION: 1. 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 Again, there is left cavernous sinus extension and approximately 50% encasement of the left cavernous ICA flow void. There has been no appreciable change. 2. No intracranial hemorrhage, acute infarction, mass effect, or edema. No additional abnormal intra or extra-axial enhancement. 3. No significant white matter abnormalities. Electronically signed by: Bebeto Knutson MD 11/04/2024 09:07 AM EDT
== END 2024-11-03 19:35 | disposition home or self-care (01) ==
LOC: HO.MRI 19:34
PROVIDERS: Visit Provider Internal Medicine Endocrinology, Diabetes & Metabolism
DX: D35.2 Benign neoplasm of pituitary gland (principal)
CPT/HCPCS: 70553; A9585

== ENCOUNTER → 2024-11-03 19:50 | Outpatient (BNV) | payer MEDICARE, OTHER, MEDICAID, SELFPAY | PROVIDERS: Visit Provider Radiology Diagnostic Radiology | DX: D35.2 Benign neoplasm of pituitary gland (principal) | CPT/HCPCS: 70553 ==

== ENCOUNTER 2024-11-20 10:09 | Outpatient (REF) | payer MEDICARE, OTHER, MEDICAID, SELFPAY ==
--- OUTSIDE RECORDS SUMMARY | 2024-01-05 05:00 | XMS_ITS ---
Author Organization [facility] Address [address] [place] [id number] Care Team Providers Care Buhr Mill Operator Name Role Phone Sharmin Jones M.D. Primary Care Provider Felipe Lewis [phone] REASON FOR VISIT screening,hx polyps,tubulovillous adenoma colon Encounters Encounter Location Date Provider Diagnosis [facility] [address] [place] [id number] 01/05/2024 Felipe Varela Plan Of Treatment No Information Progress Notes * FAITH ALDRIDGE OMUSHAOB: (74 yo M)Acc No.[id number]:01/05/2024 COLON WITH MAC Patient: TEJAL FRY Provider: Narinder Varela MD :1950 A ge:73 Y S ex:Male Date:01/05/2024 Address:[address] [place], [place] [id number] Pcp:Sharmin Jones M.D. Subjective: * Chief Complaints: [...] 1 Generated for Jm chambers/Faxing/eTransmitting on: 0 11/20/2024 11:38 AM EDT
--- OUTSIDE RECORDS SUMMARY | 2024-11-13 09:00 | XMS_ITS ---
Author Organization [facility] Address [address] [place] [phone] Care Team Providers Care Dredge Mate Name Role Phone Sharmin Jones M.D. Primary Care Provider Felipe Lewis [phone] Allergies Allergen (clinical drug ingredient) Drug/Non Drug [...] 11/13/2024 Encounters Encounter Location Date Provider Diagnosis [facility] [address] [place] [address] 11/13/2024 Felipe Varela Personal history of colonic [...] Z12.11) Need report of recent MRI at [facility] and a clearance note from his Bus Escort Dr. Gleason in regard to his pituitary [...] Need report of re cent MRI at [facility] and a clearance note from his Bus Escort Dr. Gleason in regard to his pituitary tumor and ability to have Anesthesia and a colonoscopy Gastroesophageal reflux dise ase, unspecified whether esophagitis present Continue the daily Pantoprazole for the reflux Progress Notes * FAITH ALDRIDGE OMARDOB: (74 yo M)Acc No.[id number]:11/13/2024 Progress Notes Patient: PORTILLO FRY Provider: Narinder Varela MD :1950 A ge:74 Y S ex:Male Date:11/13/2024 Address:[address] [place] [address] Pcp:Shamrin Jones M.D. Subjective: * Chief Complaints: * 1 . Patient presents today for a colonoscopy recall. * HPI: i ncontinence: I saw Portillo in follow-up today regard to his personal history of multiple colon polyps, including large tubular adenomas and serrated polyps, and need for colorectal cancer screening. I last saw Poritllo in July 2023 when we had reviewed [...] brain recently. Portillo has been seen in [place] once for this issue but has only [...] [address] Harrison, Denies [place],DM,CVA,Lung disease,renal disease, Positive Cologuard in 03/2023, Colonoscopy [...] 2024. He has also been seen in [place] for this issue. * Family History: F [...] ietary management education, guidance, and counseling, B [place] management provided Y es. Screenings: F all [...] MD Date: 0 11/13/2024 Generated for Jm chambers/Georgette/Joshuaitting on: 0 11/20/2024 11:38 AM EDT History and Physical Notes * HPI [...] brain recently. Portillo has been seen in [place] once for this issue but has only [...]
--- OUTSIDE RECORDS SUMMARY | 2024-11-20 11:38 | XMS_ITS | Encounter Summary ---
Author Organization [facility] [employer] Address [address] [place] [address] [address] [place] [address] Care Team Providers Care Head Of Advertising Name Role Phone Sharmin Chucrh MD Primary Care Provide r Encounter Details Date Type Department Care Team (Late st Contact Info) Description 05/20/2022 Abstract [facility] [address] [place] [address] Jina Reynolds [address] [place] [address] Social History Tobacco Use Types Packs/Day Years [...] Care Team (Late st Contact Info) Description 12/06/2024 11:00 AM EDT Office Visit [facility] [address] [place] [address] Oniel Celaya MD [address] [place] [address] documented as of this encounter Visit Diagnoses Not on filedocumented in this encounter Care Teams Head Of Advertising Relationship Specialty Start Date End Date Sharmin Church MD [address] [place], [place] [id number] PCP - General Family Medicine 11/10/20 documented as of this encounter
--- OUTSIDE RECORDS SUMMARY | 2024-11-20 11:38 | XMS_ITS | Clinical Summary ---
Author Organization [employer] Address [address] [place] [address] 7 [place] [address] Care Team Providers Care Second Class Welder Name Role Phone Sharmin Church MD Primary Care Provide r Allergies Active Allergy Reactions Criticality Noted Date Comments Chlorthalidone 05/04/2023 Dry mouth Penicillins Dizziness,Unknown Terbinafine 10/09/2014 Other reaction(s): Rash, itching Valsartan 05/04/2023 Stomach pain Medications Cyanocobalamin (Vitamin B-12) 2500 MCG sublingual tablet 3 Active fluticasone (Flonase) 50 MCG/ACT nasal sprayIndications: Nasal congestion INSTILL 2 SPRAYS IN EACH NOSTRIL ONCE DAILY NEEDED FOR ALLERGY 48 g 4 Active hydroCHLOROthiazi de (HYDRODiuril) 50 MG tabletIndications :Primary hypertension Take 1 tablet (50 mg) by mouth Once per day. 30 tablet 11 5 04/10/19 26 Active losartan (Cozaar) 100 MG tabletIndications :Primary hypertension TAKE 1 TABLET BY MOUTH EVERY MORNING 30 tablet 11 5 Active bromocriptine (Parlodel) 2.5 MG tablet Take 1 tablet by mouth Once per day. 5 Active cabergoline (Dostinex) 0.5 MG tablet Take 0.5 mg by mouth 2 (two) times a week. 4 Active polyethylene glycol, PEG, 3350 (Glycolax) 17 GM/SCOOP powder MIX 238 GRAMS WITH gatorade OR crystal light AND BEGIN DRINK AT 5 IN THE EVENING BEFORE PROCEDURE DIRECTED 4 Active cyclobenzaprine (Flexeril) 5 MG tablet Take 1 tablet (5 mg) by mouth at bedtime. 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) 10/04/2024 Telephone [facility] [address] [place] [address] Sharmin Church MD Referral 09/16/2024 Refill [facility] [address] [place] [address] Sharmin Church MD Gastroesophageal reflux disease, unspecified whether esophagitis present from Last 3 Months Immunizations Immunization Administration Dates Next Due Influenza High-dose Quadriva [...] 59 07/19/2024 9:22 AM EDT Temperature 36.8 C (98.3 F) 07/19/2024 9:22 AM EDT Respiratory Rate 16 07/19/2024 9:22 AM EDT [...] Description 12/06/2024 11:00 AM EDT Office Visit [facility] [address] [place] [address] Oniel Celaya MD [address] [place] [address] Health Maintenance Due Date Last Done Comments CT Colonography 1950 Colonoscopy 1950 Dental X-Ray: Full Mouth 1951 FIT 1951 FOBT 1950 Sigmoidoscopy 1951 Alcohol/Substance Use Screening 1963 Hepatitis C Screening 08/02/1969 Zoster Vaccines (1 of 2) 08/02/2001 Dental Oral Exam 08/31/2022 03/01/2022 Dental Prophylaxis 08/31/2022 03/01/2022 DTaP/Tdap/Td Vaccines (2 - Td or Tdap) 05/16/2023 05/16/2013 Dental X-Ray: Bitewings 04/08/2024 04/07/19 24, 01/24/2023, 03/01/2022 SDOH Screening 08/16/2024 08/17/2023 COVID-19 Vaccine ( - season) 2024 02/10/2021, 07/28/2020, 06/30/2020 Influenza Vaccine (#1) 2024 , 01/20/2023, 12/14/2021, Additional history exists Depression Screening 04/10/2025 04/10/2024, 04/10/19 25 Tobacco Screening 06/21/2025 06/21/2024 Diabetes: Hemoglobin A1C 07/19/2025 025, 06/24/2021, 11/17/2020, Additional history exists Colorectal Cancer Screening 03/21/2026 FIT DNA/Cologuard 03/21/2026 03/21/2023 Lipid Panel 06/24/2026 06/24/2021, 08/3 03/2020, 11/27/2019 RSV Patients and Patients Aged 60 years or older (1 - 1-dose 75+ series) 08/02/2026 Pneumococcal Vaccine: 50+ Years Completed 01/07/2019, 06/20/2017 HIB Vaccines Aged Out No longer eligi [...] patient's age to complete this topic Meningococcal B Vaccine Aged Out No l onger eligible based on patient's age to complete [...] Procedure Name Priority Date/Time Associated Diagnosis Comments HEMOGLOBIN A1C Routine 07/19/2024 9:59 AM EDT Prediabetes BITEWING - SINGLE RADIOGRAPHIC IMAGE Routine 04/07/2023 1:30 PM EST Full coverage crown needed for root canal-treated tooth LAB COLOGUARD COLON CANCER SCREEN Routine 03/21/2023 7:00 PM EST Colon cancer screening PROPHYLAXIS - ADULT Routine 03/01/2022 8 :00 AM EST PERIODIC ORAL EVALUATION - ESTABLISHED PATIENT Routine 03/01/2022 8:00 AM EST ZZZ HISTORICAL LIPID PANEL Routine 06/24/2021 9:38 AM EDT from Last 3 Months or Most Recently Relevant to Health Maintenance Results * (ABNORMAL) Hemoglobin A1c (07/19/2024 9:59 AM EDT) Hemoglobin A1c 6.1(H) <6.0 % [facility] Comment:Hemoglobin A1C Refer ence Range Adults: 4.8 - 6.0 % Non diabetic: < 6.0 % Goal: < 7.0 %Additional Action Suggested: > 8.0 %Note: Hemoglobin A1c results are invalid for patients with abnormal amounts of HbF. Blood transfusions may impact the HbA1c concentration in the patient sample. Estimated Average Glucose 128 mg/dL [facility] Comment:eAG = Estimated ave rage glucose which is %A1C expressed asaverage glucose, using the formula of the Q9R-MkbrppbYyzefpw Glucose study (ADAG), Diabetes Care, Vol.31,#8,2007 Blood Venous blood specimen / Unknown 07/19/2024 9:59 AM EDT 07/19/2024 11:05 AM EDT us Ryan Urban MD LAB BLOOD ORDERABLES Final Resul t [facility] [address] [place] [phone] * (ABNORMAL) Cologuard?? colon cancer screening (03/21/2023 7:00 PM EST) Cologuard Result Positive( A) Negative 03/29/2023 6:47 AM EST [facility] (CLIA #:[id number]) Comment: POSITIVE TEST RESULT. A positive Cologuard result should be followed with a colonoscopy or visual examination of the colon. The normal value (reference range) for this assay is negative. TEST DESCRIPTION: Composite algorithmic analysis of stool DNA-biomarkers with hemoglobin immunoassay. Quantitative values of individual biomarkers are not [...] screened with both Cologuard and colonoscopy. (Mike Houston al, N Engl J Med 2014;370(14):5933-3082.) Cologuard may produce a false negative or false positive result (no colorectal cancer or precancerous polyp present at colonoscopy follow up). A negative Cologuard test result does not guarantee the absence of CRC or advanced adenoma (pre-cancer). The current Cologuard screening interval is every 3 years. ([place] Cancer Society and U.S. Multi-Society Task Force). Cologuard performance data in a 10,000 patient pivotal study using colonoscopy as the reference method can be accessed at the following location: www.[employer].hiogi/results. Additional description of the Cologuard test process, warnings and precautions can be found at www.[employer].hiogi. Stool specimen (specimen) 03/21/2023 7:00 PM EST 03/23/2023 1:48 PM EST us Sharmin Harrison MD LAB MOLECULAR DIAGNOS TICS ORDERABLES Final Result [facility] (CLIA #:[id number]) [place] [address], * (ABNORMAL) LIPID PANEL (06/24/2021 9:38 AM EDT) Cholesterol 185 mg/dL [facility] Comment: Desirable Cholesterol: less than 200 mg/dL Borderline High Cholesterol: 200-239 mg/dL High Cholesterol: greater than 239 mg/dL HDL Cholesterol 50 mg/dL [facility] Comment: Desirable HDL: greater than 40 mg/dL Note: This HDL assay may give artificially low results in patients with liver disease. LDL Cholesterol Calculated 120 mg/dl [facility] Comment: Desirable LDL: less than 100 mg/dL Near Optimal/Above Optimal LDL: 110-129 mg/dL Borderline High LDL: 130-159 mg/dL High LDL: 160-189 mg/dL Very High LDL: greater than or equal to 190 mg/dL Triglycerides 76 mg/dL [facility] Comment: Desirable Triglyceride: less than 150 mg/dL Borderline High Triglyceride 150-199 mg/dL High Triglyceride: 200-499 mg/dL Very High Triglyceride: greater than or equal to 5OO mg/dL Alanine Aminotransferase 19 0 - [...] Rate >60 [facility] Comment: NOTE: For -E[place]ian individuals, multiply the result by 1.210. Chronic Kidney Disease: Estimated GFR < 60 mL/min/1.73m2 Severe Kidney Disease: Estimated GFR < 15 mL/min/1.73m2 Glucose Random 100 60 - 115 mg/dL [facility] Potassium 4.2 3.3 - 5.1 mmol/L [facility] Sodium 138 135 - 145 mmol/L [facility] Prostate Specific Antigen 0.58 <0.05 - 4.0 ng/mL [facility] Comment: PSA methodology: [employer] Duty Manager Chemiluminescent Microparticle Immunoassay 06/24/2021 9:38 AM EDT Sharmin Harrison MD HISTORICAL/NON ORDERA BLE LABS Final Result [facility] [address] from Last 3 Months or Most Recently Relevant to Health [place] [id number] [facility] STAND[facility] Care Teams Second Class Welder Relationship Specialty Start Date End Date Sharmin Church MD [address] [place] [phone] PCP - General Family Medicine 11/10/20
--- OUTSIDE RECORDS SUMMARY | 2024-11-20 11:38 | XMS_ITS | Encounter Summary ---
Author Organization [employer] Address [address] [place] [address] 7 [place] [address] Care Team Providers Care Mining Teacher Name Role Phone Sharmin Church MD Primary Care Provide r Reason for Visit * Reason Comments Med Refill Encounter Details Date Type Department Care Team (Late st Contact Info) Description 05/28/2022 Refill [facility] [address] [place] [address] Ping Rose, ANP [address] [place] [address] Primary hypertension Social History Tobacco Use Types [...] Description 12/06/2024 11:00 AM EDT Office Visit [facility] [address] [place], [place] [phone] Oniel Celaya MD [address] [place] [address] documented as of this encounter Visit Diagnoses Diagnosis Primary hypertension Unspecified essential hypertension documented in this encounter Care Teams Mining Teacher Relationship Specialty Start Date End Date Sharmin Church MD [address] [place] [phone] PCP - General Family Medicine 11/10/20 documented as of this encounter
--- OUTSIDE RECORDS SUMMARY | 2024-11-20 11:38 | XMS_ITS | Clinical Summary ---
Author Organization [employer] [facility] Address [address] [place] [phone] Phone Care Team Providers Care Window Display Designer Name Role Phone Sharmin Marion MD Primary Care Provider Social History Tobacco Use Types Packs/Day Years Used Date Smoking Tobacco: Never Assessed Education Answer Date Recorded Are you interested in more education? Not on garrett e 11/30/2023 Are you concerned about learning? Not on file 11/30/2023 No 11/30/2023 No 11/30/2023 Digital Access Answer Date Recorded No 11/30/2023 No 11/30/2023 Reliable internet access at home? Not on file 11/30/2023 Device with a working camera? Not on file Sex and Gender Information Value Date Recorded Sex Assigned at Not on file Legal Sex Male 12:02 PM EDT Gender Identity Not on file Sexual Orientation Not on file Plan of Treatment Health Maintenance Due Date Last Done Comments LIPID PANEL 1951 DEPRESSION SCREENING 1963 SMOKING Hx and SMOKELESS TOB ACCO SCREENING 08/02/1964 HEPATITIS C SCREENING 08/02/1969 COLOGUARD 08/02/1996 COLONOSCOPY 08/02/1996 COLORECTAL CANCER SCREENING 08/02/1996 FIT TEST 08/02/1996 FOBT 08/02/1996 SIGMOIDOSCOPY 08/02/1996 VIRTUAL COLONOSCOPY 08/02/1996 ZOSTER VACCINES (1 of 2) 08/02/2001 PNEUMOCOCCAL VACCINES (50+ y ears) (2 of 2 - PCV) 01/08/2020 01/07/2019 Adult Td,Tdap Booster 05/16/2023 05/16/2013 COVID-19 VACCINE (1 - 2023-2 5 season) 2023 RSV VACCINE (1 - 1-dose 75+ series) 08/02/2026 HEPATITIS A VACCINES Aged Out No long er eligible based on patient's age to complete this topic HIB VACCINES Aged Out No longer eligi ble based on patient's age to complete this topic MENINGOCOCCAL VACCINES (ACWY) Aged Out No longer eligible based on patient's age to complete this topic MENINGOCOCCAL VACCINES (B) Aged Out N o longer eligible based on patient's age to complete this topic Medical Devices Not on file Insurance [place] [id number] [facility] [address] [place] [address] MEDICARE SUPPLEMENT MEDICARE PART A & B Member Subscriber Plan / Payer (Ef fective 2016-Present) Name:Kan Barberar Member ID:[id number] Relation to Subscriber:Self Name:CeasarhuntermattUmaElmer, Portillo Subscriber ID:[id number] Payer ID:[id number] Group ID:Not on file Type:Medicare Address: [facility] [employer] [facility] [address] [phone] [facility] FULL MEDICARE SUPPLEMENT [place] [id number] [facility] FULL Member Subscriber Plan / Payer (Ef fective 2023-Present) Name:CeasarconradKan Gallardoar Relation to Subscriber:Self Name:Portillo Barber Payer ID:Not on file Group ID:Not on file Type:Medicaid Address: [address] MEDICARE SUPPLEMENT MEDICARE PART A & B [facility] FULL Member Subscriber Plan / Payer (Ef fective 2023-) Name:Kan Barberar Relation to Subscriber:Self Name:Portillo Barber Payer ID:Not on file Group ID:Not on file Type:Medicaid Address: [address] MEDICARE SUPPLEMENT MEDICARE PART A & B [employer] NET FULL MEDICARE SUPPLEMENT MEDICARE PART A & B [facility] NET FULL FOR LIFE MEDICARE SUPPLEMENT Care Teams Window Display Designer Relationship Specialty Start Date End Date Sharmin Marion MD [address] [place] [phone] PCP - General Internal Medicine 11/10/23 Additional Source Comments The information contained in this document represents components of the legal health record. It is not the complete legal health record.[facility]
--- OUTSIDE RECORDS SUMMARY | 2024-11-20 11:39 | XMS_ITS | Patient Health Record ---
Author Organization [facility] Address [address] [place] [phone] Care Team Providers Care Urban Anthropologist Name Role Phone Sharmin Jones M.D. Primary Care Provider Felipe Lewis [phone] Allergies Allergen (clinical drug ingredient) Drug/Non Drug [...] Chlorthalidone 25 MG Oral for 30 Active Bromocriptine Mesylate 2.5 MG TAKE 1 TABLET [...] Propionate 50 MCG/ACT Nasal for 15 Active Pantoprazole Sodium 20 MG Oral for 90 Days Active Losartan Potassium 100 MG Oral for 30 Days Active Immunizations Vaccine Route Administration Date Status Comme nts Influenza Unknown 12/06/2022 Administered Influenza Unknown 01/09/2024 Administered Social History Tobacco Use: Social History [...] Status Risk Notes Problem Colon cancer screening (797372720) Colon cancer screening (Z12.11) Active confirmed Problem History of polyp of colon (situation) (924602749) Personal history of colonic polyps (Z86.010) Active confirmed Problem Diverticular disease of colon (353371522) Diverticulosis of large intestine without perforation or abscess without bleeding (K57.30) Active confirmed Problem Benign neoplasm of colon (46294273) 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) Active confirmed Problem 172535881 Positive colorec stephanie cancer screening using Cologuard test (R19.5) Active confirmed Problem Serrated polyp of colon (857970336) Serrated polyp of colon (K63.5) Active confirmed Problem 441726903 Gastroesophageal reflux disease, unspecified whether esophagitis present (K21.9) Active confirmed Vital Signs Temperature 98.0 degrees Fahrenheit 11/13/2024 Blood pressure diastolic 01 mm Hg 11/13/2024 Height 70 in 11/13/2024 Blood pressure systolic 001 mm Hg 11/13/2024 Weight 244.4 lbs 11/13/2024 BMI 35.06 kg/m2 11/13/2024 Encounters Encounter Location Date Provider Diagnosis [facility] [address] [place] [phone] 11/13/2024 Felipe Varela Personal history of colonic polyps Z86.010 ; Colon cancer screening Z12.11 ; Tubulovillous adenoma of colon K63.5 ; Serrated polyp of colon K63.5 and Gastroesophageal reflux disease, unspecified whether esophagitis present K21.9 [facility] [address] [place] [phone] 01/02/2024 Felipe Varela [facility] [address] [place] [phone] 01/04/2024 Felipe Varela Assessments Encounter Date Diagnosis [...] Z12.11) Need report of recent MRI at [facility] and a clearance note from his Electrical Assembler Dr. Gleason in regard to his pituitary [...] Start Date Coverage End Date MEDICARE OF [place] [address] [place] [address] [id number] PORTILLO LAW Self - patient is the insured [email or web address] [address] [place] [address] [id number] PORTILLO LAW Self - patient is the insured MEDICAID OF [facility] [address] [place] [address] [id number] PORT[employer]O LAW Self - patient is the insured Medical (General) History Medical History History ICD Code Hypertension Sleep apnea- not using CPAP GERD-EGD > [address] Harrison- t old of a hiatal hernia Negative colonoscopy > 10 yrs ago with Titus Harrison Denies TN,DM,CVA,Lung disease,renal dise ase Positive Cologuard in 03/2023 Colonoscopy in March revealed multiple polyps, some of which were approximately 2 cm in size. A total of 8 polyps were removed. The pathology of these included tubulovillous adenomas, a serrated polyp, and tubular adenomas Pituitary tumor followed by Dr. Gleason with [...] 2024. He has also been seen in [place] for this issue Surgical History Surgery Date(Month/Year)
--- OUTSIDE RECORDS SUMMARY | 2024-11-20 11:39 | XMS_ITS | Encounter Summary ---
Author Organization [employer] Address [address] [place] [address] 7 [place] [address] Care Team Providers Care Automobile Sales Representative Name Role Phone Sharmin Church MD Primary Care Provide r Reason for Visit * Reason Comments Med Refill Encounter Details Date Type Department Care Team (Late st Contact Info) Description 05/04/2022 Refill [facility] [address] [place], [place] [phone] Ping Rose, ANP [address] [place] [address] Primary hypertension Social History Tobacco Use Types [...] Description 12/06/2024 11:00 AM EDT Office Visit [facility] [address] [place] [address] Oniel Celaya MD [address] [place] [address] documented as of this encounter Visit Diagnoses Diagnosis Primary hypertension Unspecified essential hypertension documented in this encounter Care Teams Automobile Sales Representative Relationship Specialty Start Date End Date Sharmin Church MD [address] [place] [address] PCP - General Family Medicine 11/10/20 documented as of this encounter
--- OUTSIDE RECORDS SUMMARY | 2024-11-20 11:39 | XMS_ITS | Encounter Summary ---
Author Organization [employer] Address [address] [place] [address] 7 [place] [address] Care Team Providers Care Dining Chair Seat Cushion Trimmer Name Role Phone Sharmin Church MD Primary Care Provide r Reason for Visit * Reason Onset Date Comments FYI 01/08/2024 Encounter Details Date Type Department Care Team ([facility] st Contact Info) Description 01/08/2024 Telephone [facility] [address] [place] [address] Sharmin Church MD [address] [place] [address] FYI Social History Tobacco Use Types Packs/Day [...] Silva RN - 01/08/2024 10:55 AM EDT [facility] pt. Currently undergoing treatment for pituitary macroadenoma, colonoscopy was cancelled. Per [place] [facility] [place] 11/27/23: This is a 73-year-old [...] getting an appointment with the neurosurgeon at [facility]. . Will talk to [facility] to see if they can run serial dilutions on the repeat prolactin level get accurate measure. We will continue the bromocriptine 2.5 mg for now. With the help of official court interpreter explained the necessity again of getting a expert Neurosurgery opinion at [facility] because of the aggressiveness of the adenoma invasion of the cavernous sinus Pt. Told Dr. Varela' office [facility] appt is scheduled for 02/05/24. Dr. Varela office is recommending pt. Is referred back to them when situation is stabilized (plan scanned in from their office) * Telephone Encounter - Augustin Allan - 01/08/2024 10:20 AM EDT Tc from Radha at the office of Dr. Varela calling to inform PCP patient was scheduled for a colonoscopy exam on 01/04 however it was canceled by the anesthesiologist due to the patient having a aggressive pituitary please call to reschedule when patient is cleared for anesthesia any questions please call [phone] documented in this encounter Plan of Treatment Upcoming Encounters Date Type Department Care Team (Late st Contact Info) Description 12/06/2024 11:00 AM EDT Office Visit [facility] MED[facility] [address] [place] [address] Oinel Celaya MD [address] [place] [address] documented as of this encounter Visit Diagnoses Not on filedocumented in this encounter Additional Health Concerns Assessment Noted Time PHQ-9 Depression Total Score: 0 03/08/20 23 9:16 AM EST documented as of this encounter Care Teams Dining Chair Seat Cushion Trimmer Relationship Specialty Start Date End Date Sharmin Church MD [address] [place] [address] PCP - General Family Medicine 11/10/20 documented as of this encounter
== END 2024-11-20 10:10 | disposition home or self-care (01) ==
LOC: HO.LAB 10:09
PROVIDERS: PCP Internal Medicine; Visit Provider Internal Medicine Endocrinology, Diabetes & Metabolism
DX: D35.2 Benign neoplasm of pituitary gland (principal)
CPT/HCPCS: 36415; 84146

== ENCOUNTER 2024-11-27 14:01 | Outpatient (AMB) | payer MEDICARE, OTHER, MEDICAID, SELFPAY ==
--- OUTSIDE RECORDS SUMMARY | 2024-01-05 05:00 | XMS_ITS ---
Author Organization [facility] Address [address] [place] [id number] Care Team Providers Care Able Bodied Tankerman Name Role Phone Sharmin Jones M.D. Primary Care Provider Felipe Lewis [phone] REASON FOR VISIT screening,hx polyps,tubulovillous adenoma colon Encounters Encounter Location Date Provider Diagnosis [facility] [place] [address] [place] [id number] 01/05/2024 Felipe Varela Plan Of Treatment No Information Progress Notes * FAITH MCKEONIREZ MATTHEWUSHAOB: (74 yo M)Acc No.[id number]:01/05/2024 COLON WITH MAC Patient: TEJAL FRY Provider: Narinder Varela MD :1950 A ge:73 Y S ex:Male Date:01/05/2024 Address:[address] [place], [place] [id number] Pcp:Sharmin Jones M.D. Subjective: * Chief Complaints: * 1 . Screening,hx polyps,tubulovillous adenoma colon. * Medical History: Objective: * Vitals: Assessment: Plan: * Treatment: * * The named appointment provid er may or may not be the originator of this progress note, and it is not deemed complete until electronically signed by the appointment provider. Sign off status: Pending * Provider: Narinder Varela MD Date: 1 Generated for Jm chambers/Faxing/eTransmitting on: 0 11/27/2024 05:12 PM EDT
--- OUTSIDE RECORDS SUMMARY | 2024-11-13 09:00 | XMS_ITS ---
Author Organization [facility] Address [address] [place] [id number] Care Team Providers Care Waste Removalist Name Role Phone Sharmin Jones M.D. Primary Care Provider Felipe Lewis [phone] Allergies Allergen (clinical drug ingredient) Drug/Non Drug Allergy documented on EMR Reaction Allergy Type Onset Date Status Penicillin Unknown Drug Allergy Active REASON FOR VISIT Patient presents today for a colonoscopy recall Medications Medication SIG (Take, Route, Frequency, Duration) Notes Start Date End Date Status Bromocriptine Mesylate 2.5 MG TAKE 1 TABLET BY MOUTH DAILY Oral for 30 Days Active Dulcolax (colon prep) 5 MG take at 3:00 p.m and 7:00p.m. Orally two tablets twice a day for one day for 1 day 08/14/2023 Active MiraLax (colon prep) 17 GM/SCOOP 1 238Gm bottle mixed with Gatorade or Crystal Light Orally begin at 5:00 p.m. the day before the procedure for 1 day 08/14/2023 Active Pantoprazole Sodium 20 MG Oral for 90 Days Active Losartan Potassium 100 MG Oral for 30 Days Active Pantoprazole Sodium 20 MG TAKE 1 TABLET BY MOUTH EVERY 12 HOURS Oral for 90 Active Valsartan 160 MG TAKE 1 TABLET BY LAURYN TH EVERY MORNING Oral for 90 Active Chlorthalidone 25 MG Oral for 30 Active Fluticasone Propionate 50 MCG/ACT Nasal for 15 Active Social History Tobacco Use: Social History Observation Description Date Details (start date - stop date) Never Smoker NA - NA Tobacco Use/Smoking Question Answer Notes Patient is a nonsmoker Alcohol Screen Question Answer Notes Did you have a drink containing alcohol in the p ast year? No Points 0 Interpretation Negative Vital Signs Temperature 98.0 degrees Fahrenheit 11/14/19 25 Blood pressure systolic 001 mm Hg 11/14/19 25 Blood pressure diastolic 01 mm Hg 025 Height 70 in 11/13/2024 Weight 244.4 lbs 11/13/2024 BMI 35.06 kg/m2 11/13/2024 Encounters Encounter Location Date Provider Diagnosis [facility] [address] [place] [address] 11/13/2024 Felipe Varela Personal history of colonic polyps Z86.010 ; Colon cancer screening Z12.11 ; Tubulovillous adenoma of colon K63.5 ; Serrated polyp of colon K63.5 and Gastroesophageal reflux disease, unspecified whether esophagitis present K21.9 Assessments Encounter Date Diagnosis (ICD Code) Assessment Notes Treatment Notes Treatment Clinical Notes Section Notes 11/13/2024 Personal history of colonic polyps (ICD-10 - Z86.010) Overall, Portillo appears well from a GI standpoint. He is not having any new or worrisome GI complaints. 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 We did review the need to rule out any remaining polyps that need to be removed. We reviewed the rationale for this in regard to colorectal cancer prevention. Given the circumstances last year where anesthesia canceled the procedure at the last minute due to the realization of the pituitary tumor, I am going to try to be sure we can have him cleared for the colonoscopy prior to scheduling it. We shall get a copy of his MRI report as well as a clearance letter from Dr. Gleason. If it is felt that he can proceed with colonoscopy then we shall schedule it and have him meet with Anesthesia before the procedure as well. Full consent has been obtained for the colonoscopy, including risks of bleeding and perforation. Once we schedule the procedure we shall make any necessary medication adjustments as well. Portillo was comfortable with this plan. Thank you again for allowing me to participate in Portillo's care. I shall continue to keep you advised of his progress. 11/13/2024 Colon cancer screening (ICD-10 - Z12.11) Need report of recent MRI at [facility] and a clearance note from his Sodder Dr. Gleason in regard to his pituitary tumor and ability to have Anesthesia and a colonoscopy Overall, Portillo appears well from a GI standpoint. He is not having any new or worrisome GI complaints. 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 We did review the need to rule out any remaining polyps that need to be removed. We reviewed the rationale for this in regard to colorectal cancer prevention. Given the circumstances last year where anesthesia canceled the procedure at the last minute due to the realization of the pituitary tumor, I am going to try to be sure we can have him cleared for the colonoscopy prior to scheduling it. We shall get a copy of his MRI report as well as a clearance letter from Dr. Gleason. If it is felt that he can proceed with colonoscopy then we shall schedule it and have him meet with Anesthesia before the procedure as well. Full consent has been obtained for the colonoscopy, including risks of bleeding and perforation. Once we schedule the procedure we shall make any necessary medication adjustments as well. Portillo was comfortable with this plan. Thank you again for allowing me to participate in Portillo's care. I shall continue to keep you advised of his progress. 11/13/2024 Tubulovillous adenoma of colon (ICD-10 - K63.5) Overall, Portillo appears well from a GI standpoint. He is not having any new or worrisome GI complaints. 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 We did review the need to rule out any remaining polyps that need to be removed. We reviewed the rationale for this in regard to colorectal cancer prevention. Given the circumstances last year where anesthesia canceled the procedure at the last minute due to the realization of the pituitary tumor, I am going to try to be sure we can have him cleared for the colonoscopy prior to scheduling it. We shall get a copy of his MRI report as well as a clearance letter from Dr. Gleason. If it is felt that he can proceed with colonoscopy then we shall schedule it and have him meet with Anesthesia before the procedure as well. Full consent has been obtained for the colonoscopy, including risks of bleeding and perforation. Once we schedule the procedure we shall make any necessary medication adjustments as well. Portillo was comfortable with this plan. Thank you again for allowing me to participate in Portillo's care. I shall continue to keep you advised of his progress. 11/13/2024 Serrated polyp of colon (ICD-10 - K63.5) Overall, Portillo appears well from a GI standpoint. He is not having any new or worrisome GI complaints. 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 We did review the need to rule out any remaining polyps that need to be removed. We reviewed the rationale for this in regard to colorectal cancer prevention. Given the circumstances last year where anesthesia canceled the procedure at the last minute due to the realization of the pituitary tumor, I am going to try to be sure we can have him cleared for the colonoscopy prior to scheduling it. We shall get a copy of his MRI report as well as a clearance letter from Dr. Gleason. If it is felt that he can proceed with colonoscopy then we shall schedule it and have him meet with Anesthesia before the procedure as well. Full consent has been obtained for the colonoscopy, including risks of bleeding and perforation. Once we schedule the procedure we shall make any necessary medication adjustments as well. Portillo was comfortable with this plan. Thank you again for allowing me to participate in Portillo's care. I shall continue to keep you advised of his progress. 11/13/2024 Gastroesophageal reflux disease, unspecified whether esophagitis present (ICD-10 - K21.9) Continue the daily Pantoprazole for the reflux Overall, Portillo appears well from a GI standpoint. He is not having any new or worrisome GI complaints. 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 We did review the need to rule out any remaining polyps that need to be removed. We reviewed the rationale for this in regard to colorectal cancer prevention. Given the circumstances last year where anesthesia canceled the procedure at the last minute due to the realization of the pituitary tumor, I am going to try to be sure we can have him cleared for the colonoscopy prior to scheduling it. We shall get a copy of his MRI report as well as a clearance letter from Dr. Gleason. If it is felt that he can proceed with colonoscopy then we shall schedule it and have him meet with Anesthesia before the procedure as well. Full consent has been obtained for the colonoscopy, including risks of bleeding and perforation. Once we schedule the procedure we shall make any necessary medication adjustments as well. Portillo was comfortable with this plan. Thank you again for allowing me to participate in Portillo's care. I shall continue to keep you advised of his progress. Plan Of Treatment Treatment Notes Assessment Notes Colon cancer screening Need report of re cent MRI at [facility] and a clearance note from his Sodder Dr. Gleason in regard to his pituitary tumor and ability to have Anesthesia and a colonoscopy Gastroesophageal reflux dise ase, unspecified whether esophagitis present Continue the daily Pantoprazole for the reflux Progress Notes * FAITH ALDRIDGE OMARDOB: (74 yo M)Acc No.[id number]:11/13/2024 Progress Notes Patient: PORTILLO FRY Provider: Narinder Varela MD :1950 A ge:74 Y S ex:Male Date:11/13/2024 Address:[address] [place] [address] Pcp:Sharmin Jnoes M.D. Subjective: * Chief Complaints: * 1 . Patient presents today for a colonoscopy recall. * HPI: i ncontinence: I saw Portillo in follow-up today regard to his personal history of multiple colon polyps, including large tubular adenomas and serrated polyps, and need for colorectal cancer screening. I last saw Portillo in July 2023 when we had reviewed his colonoscopy from March 2023 that had revealed multiple polyps that were removed. 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 He has subsequently been followed by Dr. Gleason and just had a MRI of the brain recently. Portillo has been seen in [place] once for this issue but has only received treatment with bromocriptine. He has not received any treatment with radiation therapy or surgery. He has been feeling well from a GI standpoint. He enjoys a good appetite and denies any significant heartburn or dysphagia on his daily pantoprazole. He denies any early satiety, nausea, nor vomiting. He denies any abdominal pain or any signs of jaundice. He reports that his bowel movements have remained regular and without any hematochezia nor melena. * Medical History: H ypertension, Sleep apnea- not using CPAP, GERD-EGD > [address] Harrison- told of a hiatal hernia, Negative colonoscopy > [address] Harrison, Denies CO,DM,CVA,Lung disease,renal disease, Positive Cologuard in 03/2023, Colonoscopy in March of 2023 revealed multiple polyps, some of which were approximately 2 cm in size. A total of 8 polyps were removed. The pathology of these included tubulovillous adenomas, a serrated polyp, and tubular adenomas, Pituitary tumor followed by Dr. Gleason with what appears to be an aggressive course as it is reported to be involving his sinuses and carotid artery. His follow-up colonoscopy in December 2023 was canceled by the the Anesthesiologists due to the concern of the tumor near the carotid artery, He has been treated with bromocriptine and had a follow-up MRI in late October 2024. He has also been seen in [place] for this issue. * Family History: F ather: , diagnosed with Diabetes, HTN (hypertension). M other: . S ibabel: sister, diagnosed with Diabetes. no known hx of colon ca. No family history of liver cancer. * Social History: T obacco Use: T obacco Use/Smoking P atient is a n onsmoker. D rugs/Alcohol: A lcohol Screen D id you have a drink containing alcohol in the past year? N o, P oints 0 , I nterpretation N egative. M iscellaneous: M arital status: . Occupation: retired. * Medications: T aking Valsartan 160 MG Tablet TAKE 1 TABLET BY MOUTH EVERY MORNING Oral , Taking Pantoprazole Sodium 20 MG Tablet Delayed Release TAKE 1 TABLET BY MOUTH EVERY 12 HOURS Oral , Taking Chlorthalidone 25 MG Tablet Oral , Taking Fluticasone Propionate 50 MCG/ACT Suspension Nasal , Taking MiraLax (colon prep) 17 GM/SCOOP Powder 1 238Gm bottle mixed with Gatorade or Crystal Light Orally begin at 5:00 p.m. the day before the procedure , Taking Dulcolax (colon prep) 5 MG Tablet Delayed Release take at 3:00 p.m and 7:00p.m. Orally two tablets twice a day for one day , Taking Bromocriptine Mesylate 2.5 MG Tablet TAKE 1 TABLET BY MOUTH DAILY Oral , Taking Losartan Potassium 100 MG Tablet Oral , Taking Pantoprazole Sodium 20 MG Tablet Delayed Release Oral , Medication List reviewed and reconciled with the patient * Allergies: P enicillin. Objective: * Vitals: W t:244.4lbs, Ht:70in, BMI:35.06Index, BP:001/01mm Hg, Temp:98.0, Ht-cm: 177.8, Wt-k.86. Assessment: * Assessment: 1. P ersonal history of colonic polyps - Z86.010 (Primary) 2 . C olon cancer screening - Z12.11 3 . T ubulovillous adenoma of colon - K63.5 ?4. S errated polyp of colon - K63.5 5 . G astroesophageal reflux disease, unspecified whether esophagitis present - K21.9 Overall, Portillo appears well f rom a GI standpoint. He is not having any new or worrisome GI complaints. 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 We did review the need to rule out any remaining polyps that need to be removed. We reviewed the rationale for this in regard to colorectal cancer prevention. Given the circumstances last year where anesthesia canceled the procedure at the last minute due to the realization of the pituitary tumor, I am going to try to be sure we can have him cleared for the colonoscopy prior to scheduling it. We shall get a copy of his MRI report as well as a clearance letter from Dr. Gleason. If it is felt that he can proceed with colonoscopy then we shall schedule it and have him meet with Anesthesia before the procedure as well. Full consent has been obtained for the colonoscopy, including risks of bleeding and perforation. Once we schedule the procedure we shall make any necessary medication adjustments as well. Portillo was comfortable with this plan. Thank you again for allowing me to participate in Portillo's care. I shall continue to keep you advised of his progress. Plan: * Treatment: 2. G astroesophageal reflux disease, unspecified whether esophagitis present Notes: Continue the daily Pantoprazole for the reflux * Preventive Medicine: Counseling: C are goal follow-up plan: A emilie Normal BMI Follow-up D ietary management education, guidance, and counseling, B CO management provided Y es. Screenings: F all Risk Screening F all Risk Assessment: N o falls in the past year, S creening: N o falls in the past year, A ssessment: N ot performed, no reason specified, P joycelyn of Care: N ot documented, no reason specified. * * The named appointment provid er may or may not be the originator of this progress note, and it is not deemed complete until electronically signed by the appointment provider. Sign off status: Pending * Provider: Narinder Varela MD Date: 0 11/13/2024 Generated for Jm chambers/Georgette/Joshauitting on: 0 11/27/2024 05:12 PM EDT History and Physical Notes * HPI (History of Present Illness) Category Sub-Category Detail Notes Category Not es incontinence I saw Portillo in follow-up today regard to his personal history of multiple colon polyps, including large tubular adenomas and serrated polyps, and need for colorectal cancer screening. I last saw Portillo in July 2023 when we had reviewed his colonoscopy from March 2023 that had revealed multiple polyps that were removed. 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 He has subsequently been followed by Dr. Gleason and just had a MRI of the brain recently. Portillo has been seen in [place] once for this issue but has only received treatment with bromocriptine. He has not received any treatment with radiation therapy or surgery. He has been feeling well from a GI standpoint. He enjoys a good appetite and denies any significant heartburn or dysphagia on his daily pantoprazole. He denies any early satiety, nausea, nor vomiting. He denies any abdominal pain or any signs of jaundice. He reports that his bowel movements have remained regular and without any hematochezia nor melena.
[2024-11-27 14:10] VITALS: BP 132/68; PULSE 64; O2SAT 96; BMI 34.9
--- NOTE | 2024-11-27 14:10 | A.OFFVIS_ITS ---
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 Shrimp Peeling Machine Operator Required: Yes Shrimp Peeling Machine Operator Language: Automotive Finance Manager Services: Shrimp Peeling Machine Operator Present Shrimp Peeling Machine Operator [facility] Information Interpreted: non-clinical & clinical Accompanied by: Spouse Allergies Penicillins (PENICILLINS) Allergy (Severe, Verified 11/27/24 14:11) PASSED OUT lisinopril (LISINOPRIL) Adverse Reaction (Intermediate, Verified 11/27/24 14:11) HEADACHE/DIZZINESS metoprolol (METOPROLOL) Adverse Reaction (Intermediate, Verified 11/27/24 14:11) HEADACHE/DIZZINESS hydrochlorothiazide (HYDROCHLOROTHIAZIDE) Adverse Reaction (Unknown, Verified 11/27/24 14:11) LIGHTHEADNESS Medication List - Last Reconciled 11/27/24 by Felipe Gleason MD benzonatate 100 mg PO TID PRN bisacodyl (Dulcolax (bisacodyl)) 10 mg (2 x 5 mg) PO ONCE 1 day bromocriptine 2.5 mg PO DAILY famotidine 20 mg PO BEDTIME fluticasone propionate 50 mcg/actuation 2 sprays intranasal QAM PRN hydrochlorothiazide 25 mg PO DAILY lansoprazole 30 mg PO DAILY losartan 100 mg PO DAILY pantoprazole 20 mg PO BID polyethylene glycol 3350 (Miralax) 238 grams PO ONCE 1 day HPI Comments Details: This is a 73-year-old male referred to endocrinology for 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 . CT Scan showed a 17 by 23 x 21 mm suprasellar lesion with bony expansion of the sella turcica. There is no further workup provided. CT Scan was done for headache . No visual field was performed Currently, patient admits to occasional headache but c/o loss of vision in left . He denies any breast discharge. He denies any symptoms of enlargement of the hands or feet with symptoms of acromegaly. He denies any symptoms of [place] syndrome. No loss of libido . Workup showed the adenoma to be prolactin secreting. An MRI of the pituitary showed invasion of the cavernous sinus. Pt here to discuss today. He is tolerating the bromocriptine without problems. He states increase in libido. Denies any orthostatic symptoms Patient was referred to [facility] Dr. Gallegos and was felt that he is responding medically to bromocriptine and surgery was not necessary. He is currently on 2.5 mg of bromocriptine per day. Recent MRI showed stability in the size of the adenoma. No headache or loss of vision [facility] Medical History (Updated 01/03/24 @ 14:27 by Miladis Peguero RN) Sleep apnea Pituitary adenoma HTN (hypertension) Abdominal pain GERD (gastroesophageal reflux disease) Surgical History Hx of colonoscopy History of esophagogastroduodenoscopy (EGD) Family History Mother Cancer Father HTN (hypertension) Brother Cancer Sister Cancer Social History Household Members Other:: lives with Alcohol intake: never Patient Tobacco Use Status: Never used Tobacco Current occupation: retired Assessment & Plan Assessment & Plan (1) Pituitary adenoma: Comment: being evaluated by [facility]. [facility]ology Code(s): D35.2 - Benign neoplasm of pituitary gland Category: Medical Plan: This is a 73-year-old male with a history of pituitary macroadenoma. 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 MRI of the pituitary showed cavernous sinus invasion . Prolactin level normalized on 2.5 mg of bromocriptine Saw Neurosurgery at [facility] Dr. Gallegos and felt that medical therapy should be continued. Recent MRI showed stability in the size of the adenoma . Plan is to continue the current management. Patient should follow up with Dr. Gallegos at [facility]. Orders: Orders Prolactin 8 Months D35.2 - Benign neoplasm of pituitary gland Coding Level of Care Code Est Pt Level 3 (96892) Diagnoses Pituitary adenoma D35.2
--- OUTSIDE RECORDS SUMMARY | 2024-11-27 17:12 | XMS_ITS | Encounter Summary ---
Author Organization [employer] Address [address] [place] [address] 7 [place] [address] Care Team Providers Care Ic Designer Custom Name Role Phone Sharmin Church MD Primary Care Provide r Reason for Visit * Reason Comments Med Refill Encounter Details Date Type Department Care Team (Late st Contact Info) Description 05/28/[address] [facility] [address] [place], [place] [phone] Ping Rose, ANP [address] [place] [address] Primary hypertension Social History Tobacco Use Types [...] Description 12/06/2024 11:00 AM EDT Office Visit [facility] [address] [place] [address] Oniel Celaya MD [address] [place] [address] 03/27/2025 1:00 PM EST Office Visit [facility] OPTOM[facility]RY [address] [place] [address] Eloina Raman, JANAY [address] [place] [address] documented as of this encounter Visit Diagnoses Diagnosis Primary hypertension Unspecified essential hypertension documented in this encounter Care Teams Ic Designer Custom Relationship Specialty Start Date End Date Sharmin Church MD [address] [place] [address] PCP - General Family Medicine 11/10/20 documented as of this encounter
--- OUTSIDE RECORDS SUMMARY | 2024-11-27 17:12 | XMS_ITS | Clinical Summary ---
Author Organization [employer] Address [address] [place] [address] 7 [place] [address] Care Team Providers Care Sales And Marketing Director Name Role Phone Sharmin Church MD Primary Care Provide r Allergies Active Allergy Reactions Criticality Noted Date Comments Chlorthalidone 05/04/2023 Dry mouth Penicillins Dizziness,Unknown Terbinafine 10/09/2014 Other reaction(s): Rash, itching Valsartan 05/04/2023 Stomach pain Medications Cyanocobalamin (Vitamin B-12) 2500 MCG sublingual tablet 08/11/19 23 Active hydroCHLOROthiaz lila (HYDRODiuril) 50 MG tabletIndication s:Primary hypertension Take 1 tablet (50 mg) by mouth Once per day. 30 tablet 11 04/10/19 25 026 Active losartan (Cozaar) 100 MG tabletIndication s:Primary hypertension TAKE 1 TABLET BY MOUTH EVERY [...] EVENING BEFORE PROCEDURE DIRECTED 01/02/20 24 Active cyclobenzaprine (Flexeril) 5 MG tablet Take 1 tablet (5 mg) by mouth at bedtime. 30 tablet 06/22/19 25 Active pantoprazole (ProtoNix) 20 MG EC tabletIndication s:Gastroesophage al reflux disease, unspecified whether esophagitis present TAKE 1 TABLET BY MOUTH TWICE DAILY 180 tablet 1 09/18/19 25 Active fluticasone (Flonase) 50 MCG/ACT nasal sprayIndications :Nasal congestion USE 2 SPRAYS IN EACH NOSTRIL ONCE DAILY NEEDED FOR ALLERGIES 48 g 11/27/19 25 Active fluticasone (Flonase) 50 MCG/ACT nasal sprayIndications :Nasal congestion INSTILL 2 SPRAYS IN EACH NOSTRIL ONCE DAILY NEEDED FOR ALLERGY 48 g 02/28/20 24 025 Discontinued Active Problems Problem Noted [...] Encounters Date Type Department Care Team Description 11/25/2024 Refill [facility] PEDS [address] [place] [address] Sharmin Church MD Nasal congestion 11/20/2024 Orders Only GENERIC EXTERNAL DATA DEPARTMENT Provider, Generic External Data 11/20/2024 Telephone [facility] [address] [place] [address] Sharmin Church MD Clearance 10/09/2024 Telephone [facility] [address] [place] [address] Sharmin Church MD Referral 10/04/2024 Orders Only [facility] [address] [place] [address] Sharmin Church MD Prolactinoma (CMS/HCC) (Primary Dx) 10/04/2024 Telephone [facility] [address] [place] [address] Sharmin Church MD Referral 09/16/2024 Refill [facility] [address] [place] [address] Sharmin Church MD Gastroesophageal reflux disease, unspecified [...] trivalent, adjuvanted 11/23/2018,11/18 Moderna Covid-19 Vaccine 12+ 02/10/2021,07/29/19,06/30/2020 Pneumococcal Conjugate PCV 13 06/20/2017 Pneumococcal Polysaccharide [...] 12/06/2024 11:00 AM EDT Office Visit [facility] [address] [place] [address] Oniel Celaya MD [address] [place] [address] 03/27/2025 1:00 PM EST Office Visit [facility] OPTOMETRY [address] [place] [address] Lamine, Eloina, OD [address] [place] [address] Health Maintenance Due Date Last Done Comments CT Colonography 1950 Colonoscopy 1950 Dental X-Ray: Full Mouth 1951 FIT 1950 Sigmoidoscopy 1951 Alcohol/Substance Use Screening 1963 Hepatitis C Screening 08/02/1969 Zoster Vaccines (1 of 2) 08/02/2001 Dental Oral Exam 08/31/2022 03/01/2022 Dental Prophylaxis 08/31/2022 03/01/2022 DTaP/Tdap/Td Vaccines (2 - Td or Tdap) 05/16/2023 05/16/2013 FOBT 03/21/2024 03/21/2023 Dental X-Ray: Bitewings 04/08/2024 04/07/19 24, 01/24/2023, 03/01/2022 SDOH Screening 08/16/2024 08/17/2023 COVID-19 Vaccine ( season) 2024 02/10/2021, 07/28/2020, 06/30/2020 Influenza Vaccine (#1) 2024 , 01/20/2023, 12/14/2021, Additional history exists Depression Screening 04/10/2025 04/10/2024, 04/10/19 25 Tobacco Screening 06/21/2025 06/21/2024 Diabetes: Hemoglobin A1C 07/19/2025 025, 06/24/2021, 11/17/2020, Additional history exists Colorectal Cancer Screening 03/21/2026 FIT DNA/Cologuard 03/21/2026 03/21/2023 Lipid Panel 06/24/2026 06/24/2021, 10/20, 11/27/2019 RSV Patients and Patients Aged 60 [...] Procedure Name Priority Date/Time Associated Diagnosis Comments PROLACTIN Routine 11/20/2024 10:27 AM EDT HEMOGLOBIN A1C Routine 07/19/2024 9:59 AM EDT [...] Recently Relevant to Health Maintenance Results * Prolactin (11/20/2024 10:27 AM EDT) Prolactin 5.3 2.0 - 18.0 ng/mL [facility] Comment:THIS TEST WAS PERFOR MED AT:[facility] [place] [id number] TRUJILLO MD 11/20/2024 10:2 7 AM EDT 11/20/2024 10:27 AM EDT us Generic External Data Provider LAB BLOOD ORDERAB LES Final Result Performing Organization Address [facility] Co de Phone Number [facility] [address] [place] [phone] * (ABNORMAL) Hemoglobin A1c (07/19/2024 9:59 AM EDT) Hemoglobin A1c 6.1(H) <6.0 % [facility] Comment:Hemoglobin A1C Refer ence Range Adults: 4.8 - 6.0 % Non diabetic: < 6.0 % Goal: < 7.0 %Additional Action Suggested: > 8.0 %Note: Hemoglobin A1c results are invalid for patients with abnormal amounts of HbF. Blood transfusions may impact the HbA1c concentration in the patient sample. Estimated Average Glucose 128 mg/dL [facility] Comment:eAG = Estimated ave rage glucose which is %A1C expressed asaverage glucose, using the formula of the E6H-BonjrewSzpfnlj Glucose study (ADAG), Diabetes Care, Vol.31,#8,Oct. 2007 Blood Venous blood specimen / Unknown 07/19/2024 9:59 AM EDT 07/19/2024 11:05 AM EDT Ryan Urban MD LAB BLOOD ORDERABLES Final Resul t Performing Organization Address [facility]/ZIP Co de Phone Number [facility] [address] [place] [phone] * (ABNORMAL) Cologuard?? colon cancer screening (03/21/2023 7:00 PM EST) Cologuard Result Positive( A) Negative 03/29/2023 6:47 AM EST [facility] (CLIA #:[id number]) Comment: POSITIVE TEST RESULT. A positive Cologuard [...] Rowland et al, N Engl J Med 2014;370(14):4763-9565.) Cologuard may produce a false negative or false positive result (no colorectal cancer or precancerous polyp present at colonoscopy follow up). A negative Cologuard test result does not guarantee the absence of CRC or advanced adenoma (pre-cancer). The current Cologuard screening interval is every 3 years. ([place] Cancer Society and U.S. Multi-Society Task Force). Cologuard performance data in a 10,000 patient pivotal study using colonoscopy as the reference method can be accessed at the following location: www.[employer]WHObyYOU/results. Additional description of the Cologuard test process, warnings and precautions can be found at www.[employer] Systems[employer].com. Stool specimen (specimen) 03/21/2023 7:00 PM EST 03/23/2023 1:48 PM EST Sharmin Espinal Robert Harrison MD LAB MOLECULAR DIAGNOS TICS ORDERABLES Final Result [facility] (CLIA #:[id number]) [place] [address], * (ABNORMAL) LIPID PANEL (06/24/2021 9:38 AM [...] >60 [facility] Comment: NOTE: For -Ivorian individuals, multiply the result by 1.210. Chronic [...] ng/mL [facility] Comment: PSA methodology: wutabout Chemiluminescent Microparticle Immunoassay 06/24/2021 9:38 AM EDT Sharmin Harrison MD HISTORICAL/NON ORDERA BLE LABS Final Result [facility] [address] from Last 3 Months or Most Recently Relevant to Health [place] [id number] [employer] [facility] STANDARD Care Teams Sales And Marketing Director Relationship Specialty Start Date End Date Sharmin Church MD [address] [place] [phone] PCP - General Family Medicine 11/10/20
--- OUTSIDE RECORDS SUMMARY | 2024-11-27 17:12 | XMS_ITS | Clinical Summary ---
Author Organization [facility] Address [address] [place] [address] Phone Care Team Providers Care Gas Pumping Station Supervisor Name Role Phone Sharmin Marion MD Primary [...] 01/08/2020 01/07/2019 Adult Td,Tdap Booster 05/16/2023 05/16/2013 INFLUENZA VACCINE (#1) 2024 COVID-19 VACCINE (1 - 2023-2 5 season) 2024 RSV VACCINE (1 - 1-dose 75+ series) [...] file Insurance MEDICARE PART A & B Member Subscriber Plan / Payer (Ef fective 2016-Present) Name:Portillo Barber Member ID:[id number] Relation to Subscriber:Self Name:Portillo Barber Subscriber ID:[id number] Payer ID:[id number] Group ID:Not on file Type:Medicare Address: [facility] [facility] [address] [place] [address] [facility] [address] [place] [address] MEDICARE SUPPLEMENT [facility] Address: [address] [address] MEDICARE PART A & B [facility] [address] [place] [address] MEDICARE SUPPLEMENT [facility] Address: [address] [address] MEDICARE PART A & B [facility] FULL MEDICARE SUPPLEMENT [facility] Address: [facility] [address] [place] [address] MEDICARE PART A & B [facility] FULL Member Subscriber Plan / Payer (Ef fective 2023-Present) Name:Portillo Barber Relation to Subscriber:Self Name:Portillo Barber Payer ID:Not on file Group ID:Not on file Type:Medicaid Address: [address] MEDICARE SUPP[facility]MENT [facility] Address: [address] [address] MEDICARE PART A & B HEALTH SAFETY NET FULL MEDICARE SUPPLEMENT [facility] Address: [facility] [address] [place] [address] MEDICARE PART A & B [facility] SAFETY NET FULL FOR LIFE MEDICARE SUPPLEMENT Care Teams Gas Pumping Station Supervisor Relationship Specialty Start Date End Date Sharmin Marion MD [address] [place] [address] PCP - General Internal Medicine 11/10/23 Additional Source Comments The information contained in this document represents components of the legal health record. It is not the complete legal health record.[facility]
--- OUTSIDE RECORDS SUMMARY | 2024-11-27 17:12 | XMS_ITS | Encounter Summary ---
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 Per last [facility] note 11/27/23: This is a 73-year-old [...] getting an appointment with the neurosurgeon at [facility]. . Will talk to [facility] to see if they can run serial dilutions on the repeat prolactin level get accurate measure. We will continue the bromocriptine 2.5 mg for now. 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 Told Dr. Varela' office [facility] appt is scheduled for 02/05/24. Dr. [...] cleared for anesthesia any questions please call [phone] documented in this encounter Plan of Treatment Upcoming Encounters Date Type Department Care Team (Late st Contact Info) Description 12/06/2024 11:00 AM EDT Office Visit [facility] [address] [place] [address] Oniel Celaya MD [address] [place] [address] 03/27/2025 1:00 PM EST Office Visit [facility] [address] [place] [address] Lamine, Eloina, OD [address] [place] [address] documented as of this encounter Visit Diagnoses Not on filedocumented in this encounter Additional Health Concerns Assessment Noted Time PHQ-9 Depression Total Score: 0 03/08/20 23 9:16 AM EST documented as of this encounter Care Teams Director Part Relationship Specialty Start Date End Date Sharmin Church MD [address] [place] [address] PCP - General Family Medicine 11/10/20 documented as of this encounter
--- OUTSIDE RECORDS SUMMARY | 2024-11-27 17:12 | XMS_ITS | Encounter Summary ---
Author Organization [employer] Address [address] [place] [address] 7 [place] [address] Care Team Providers Care Wiener Packer Name Role Phone Sharmin Church MD Primary Care Provide r Reason for Visit * Reason Onset Date Comments Clearance 11/20/2024 Encounter Details Date Type Department Care Team ([facility] st Contact Info) Description 11/20/2024 Telephone [facility] [address] [place] [address] Sharmin Church MD [address] [place] [address] Clearance Social History Tobacco Use Types Packs/Day Years [...] Telephone Encounter - Aileen Silva RN - 11/21/2024 2:37 PM EDT Per GI note 11/13/24: Overall, Portillo appears well from a GI standpoint. He is not having any new or worrisome GI complaints. We did review his need for an eventual follow-up colonoscopy once it is felt that he is stable inregard to the aggressive pituitary tumor. We did review the need to rule out any remaining polyps that need to be removed. We reviewed the rationale for this in regard to colorectal cancer prevention. Given the circumstances last year where anesthesia canceled the procedure at the last minute due tothe realization of the pituitary tumor, I am [...] as well. Full consent has been obtained forthe colonoscopy, including risks of bleeding and perforation. Once we schedule the procedure we shall make any necessary medication adjustments as well. Portillo was comfortable with this plan. Thank you again for allowing me to participate in Portillo's care. I shall continue to keep you advisedof his progress. TC returned to GI and spoke to Gayle. Gayle reports they spoke to Dr. Gleason's office who stated the letter would have to come from PCP. [facility] is aware that endo is the one prescribing the medication to treat the tumor and monitoring it, Gayle reports they are stuck in the middle . I advisedI could send a message to PCP to see if a clearance letter could be generated and would call back if this is not appropriate to come from PCP, otherwise if possible I would fax it. She agreed to plan * Telephone Encounter - Gerardo To - 11/20/2024 2:11 PM EDT Tc from Gayle with [facility] stating pt will be having a colonoscopy but due topituitary tumor they're requesting a clearance to make sure pt is able to retain anaesthesia. Please contact Gayle at [phone]. documented in this encounter Plan of Treatment Upcoming Encounters Date Type Department Care Team (Late st Contact Info) Description 12/06/2024 11:00 AM EDT Office Visit [facility] MED[facility] [address] [place] [address] Oniel Celaya MD [address] [place] [address] 03/27/2025 1:00 PM EST Office Visit [facility] OPTOMETRY [address] [place] [address] Eloina Raman, OD [address] [place] [address] documented as of this encounter Visit Diagnoses Not on filedocumented in this encounter Additional Health Concerns Assessment Noted Time PHQ-9 Depression Total Score: 0 04/10/19 25 9:21 AM EST documented as of this encounter Care Teams Wiener Packer Relationship Specialty Start Date End Date Sharmin Church MD [address] [place] [address] PCP - General Family Medicine 11/10/20 documented as of this encounter
--- OUTSIDE RECORDS SUMMARY | 2024-11-27 17:12 | XMS_ITS | Encounter Summary ---
Author Organization [employer] Address [address] [facility] [address] [place] [address] Care Team Providers Care Mail Officer Name Role Phone Sharmin Church MD Primary Care Provide r Reason for Visit * Reason Comments Med Refill Encounter Details Date Type Department Care Team (Late st Contact Info) Description 11/25/2024 Refill [facility] PEDS [address] [place] [address] Sharmin Church MD [address] [place] [address] Nasal congestion Social History Tobacco Use Types Packs/Day Years [...] Description 12/06/2024 11:00 AM EDT Office Visit [facility] [address] [place] [address] Oniel Celaya MD [address] [place] [address] 03/27/2025 1:00 PM EST Office Visit [facility] OPTOMETRY [address] [place] [address] Lamine, Eloina, OD [address] [place] [address] documented as of this encounter Visit Diagnoses Diagnosis Nasal congestion Other diseases of nasal cavity and sinuses documented in this encounter Additional Health Concerns Assessment Noted Time PHQ-9 Depression Total Score: 0 04/10/19 25 9:21 AM EST documented as of this encounter Care Teams Mail Officer Relationship Specialty Start Date End Date Shramin Church MD [address] [place] [address] PCP - General Family Medicine 11/10/20 documented as of this encounter
--- OUTSIDE RECORDS SUMMARY | 2024-11-27 17:12 | XMS_ITS | Encounter Summary ---
Author Organization [employer] Address [address] [place] [address] [address] [place] [address] Care Team Providers Care Coal Trimmer Machine Operator Name Role Phone Sharmin Church MD Primary Care Provide r Encounter Details Date Type Department Care Team (Late st Contact Info) Description 05/20/[address] [facility] D[facility] [address] [place] [address] Jina Reynolds [address] [place] [address] Social History Tobacco Use Types Packs/Day Years [...] Description 12/06/2024 11:00 AM EDT Office Visit [facility] MEDICINE [address] [place] [address] Oniel Celaya MD [address] [place], [place] [phone] 03/27/2025 1:00 PM EST Office Visit [facility] OPTOMETRY [address] [place], [place] [phone] Eloina Raman, OD [address] [place], [place] [phone] documented as of this encounter Visit Diagnoses Not on filedocumented in this encounter Care Teams Coal Trimmer Machine Operator Relationship Specialty Start Date End Date Sharmin Church MD [address] [place], [place] [phone] PCP - General Family Medicine 11/10/20 documented as of this encounter
--- OUTSIDE RECORDS SUMMARY | 2024-11-27 17:13 | XMS_ITS | Encounter Summary ---
Author Organization [employer] Address [address] [place] [address] 7 [place] [address] Care Team Providers Care Nocturnist Name Role Phone Sharmin Church MD Primary Care Provide r Reason for Visit * Reason Comments Med Refill Encounter Details Date Type Department Care Team (Late st Contact Info) Description 05/04/[address] [facility] MED[facility]INE [address] [place], [place] [phone] Ping Rose, ANP [address] [place] [address] Primary hypertension Social History Tobacco Use Types [...] 12/06/2024 11:00 AM EDT Office Visit [facility] [address] [place] [address] Oniel Celaya MD [address] [place] [address] 03/27/2025 1:00 PM EST Office Visit [facility] [address] [place] [address] Eloina Raman, JANAY [address] [place] [address] documented as of this encounter Visit Diagnoses Diagnosis Primary hypertension Unspecified essential hypertension documented in this encounter Care Teams Nocturnist Relationship Specialty Start Date End Date Sharmin Church MD [address] [place] [address] PCP - General Family Medicine 11/10/20 documented as of this encounter
--- OUTSIDE RECORDS SUMMARY | 2024-11-27 17:13 | XMS_ITS | Patient Health Record ---
Author Organization [facility] Address [address] [place] [phone] Care Team Providers Care Dish Stacker Name Role Phone Sharmin Jones M.D. 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) Active confirmed Problem 183705690 Positive colorec stephanie cancer screening using Cologuard test (R19.5) Active confirmed Problem Serrated polyp of colon (603697852) Serrated polyp of colon (K63.5) Active confirmed Problem 609155261 Gastroesophageal reflux disease, unspecified whether esophagitis present (K21.9) Active confirmed Vital Signs Temperature 98.0 degrees Fahrenheit 11/13/2024 Blood pressure diastolic 01 mm Hg 11/13/2024 Height 70 in 11/13/2024 Blood pressure systolic 001 mm Hg 11/13/2024 Weight 244.4 lbs 11/13/2024 BMI 35.06 kg/m2 11/13/2024 Encounters Encounter Location Date Provider Diagnosis [facility] [address] [place] [phone] 11/13/2024 Felipe Varela Personal history of colonic polyps Z86.010 ; Colon cancer screening Z12.11 ; Tubulovillous adenoma of colon K63.5 ; Serrated polyp of colon K63.5 and Gastroesophageal reflux disease, unspecified whether esophagitis present K21.9 [facility] [address] [place] [phone] 11/20/2024 Felipe Varela [facility] [address] [place] [phone] 01/02/2024 Felipe Varela [facility] [address] [place] [phone] 01/04/2024 Felipe Varela Assessments Encounter Date Diagnosis [...] Z12.11) Need report of recent MRI at [facility] and a clearance note from his Photographic Hand Developer Dr. Gleason in regard to his pituitary [...] Start Date Coverage End Date MEDICARE OF [place] [address] [place] [address] [id number] [employer] Self - patient is the insured [employer] [address] [place] [address] [id number] [employer] Self - patient is the insured MEDICAID OF [facility] [address] [place] [phone] [id number] [employer] Self - patient is the insured Medical (General) History Medical History History ICD Code Hypertension Sleep apnea- not using CPAP GERD-EGD > [address] Harrison- t old of a hiatal hernia Negative colonoscopy > 10 yrs ago with Titus Harrison Denies MS,DM,CVA,Lung disease,renal dise ase Positive Cologuard in 03/2023 [...] 2024. He has also been seen in [place] for this issue Surgical History Surgery Date(Month/Year)
== END 2024-11-27 14:32 | disposition home or self-care (01) ==
LOC: HO.ENCR 14:01
PROVIDERS: PCP Internal Medicine; Visit Provider Internal Medicine Endocrinology, Diabetes & Metabolism
DX: D35.2 Benign neoplasm of pituitary gland (principal)
CPT/HCPCS: 99213

== ENCOUNTER → 2024-11-27 14:01 | Outpatient (BNVA) | payer MEDICARE, OTHER, MEDICAID, SELFPAY | PROVIDERS: PCP Internal Medicine; Visit Provider Internal Medicine Endocrinology, Diabetes & Metabolism | DX: D35.2 Benign neoplasm of pituitary gland (principal) | CPT/HCPCS: 99212 ==

== ENCOUNTER → 2025-02-02 20:30 | Outpatient (REF) | payer MEDICARE, OTHER, MEDICAID, SELFPAY ==
--- OUTSIDE RECORDS SUMMARY | 2025-02-02 21:27 | XMS_ITS | Encounter Summary ---
Author Organization [employer] Address [address] [place] [address] 7 [place] [address] Care Team Providers Care Slab Tripper Name Role Phone Sharmin Church MD Primary Care Provide r Reason for Visit * Reason Comments Med Refill Encounter Details Date Type Department Care Team (Late st Contact Info) Description 05/04/2022 Refill [facility] [address] [place], [place] [phone] Ping Rose, ANP [address] [place] [address] Primary hypertension Social History Tobacco Use Types [...] as of this encounter Plan of Treatment Not on file documented as of this encounter Visit Diagnoses Diagnosis Primary hypertension Unspecified essential hypertension documented in this encounter Care Teams Slab Tripper Relationship Specialty Start Date End Date Sharmin Church MD [address] [place] [address] PCP - General Family Medicine 11/10/20 documented as of this encounter
--- OUTSIDE RECORDS SUMMARY | 2025-02-02 21:27 | XMS_ITS | Patient Health Record ---
Author Organization [facility] Address [address] [place] [phone] Care Team Providers Care Digital Tech Name Role Phone Sharmin Jones M.D. Primary Care Provider Felipe Lewis [phone] Allergies Allergen (clinical drug ingredient) Drug/Non Drug Allergy documented on EMR Reaction Allergy Type Onset Date Status Penicillin Unknown Drug Allergy Active Reason For Referral No Information Medications Medication SIG (Take, Route, Frequency, Duration) Notes Start Date End Date Status Pantoprazole Sodium 20 MG Tablet Delayed Release TAKE 1 TABLET BY MOUTH EVERY 12 HOURS Oral; Duration: 90 Active Valsartan 160 MG Tablet TAKE 1 TABLET BY MOUTH EVERY MORNING Oral; Duration: 90 Active Chlorthalidone 25 MG Tablet Oral; Duration: 30 Active Bromocriptine Mesylate 2.5 MG Tablet TAKE 1 TABLET BY MOUTH DAILY Oral; Duration: 30 Days Active Dulcolax (colon prep) 5 MG Tablet Delayed Release take at 3:00 p.m and 7:00p.m. Orally two tablets twice a day for one day; Duration: 1 day 08/14/2023 Active MiraLax (colon prep) 17 GM/SCOOP Powder 1 238Gm bottle mixed with Gatorade or Crystal Light Orally begin at 5:00 p.m. the day before the procedure; Duration: 1 day 08/14/2023 Active Fluticasone Propionate 50 MCG/ACT Suspension Nasal; Duration: 15 Ac tive Dulcolax (colon prep) 5 MG Tablet Delayed Release take 2 at 3:00 p.m and 2 at 7:00p.m. Orally two tablets twice a day for one day; Duration: 1 days 01/12/2025 Active Pantoprazole Sodium 20 MG Tablet Delayed Release Oral; Duration: 90 Days Active MiraLax (colon prep) 17 GM/SCOOP Powder mixed with Gatorade or Crystal Light orally begin at 5:00 p.m. the day before the procedure; Duration: 1 days 01/12/2025 Active Losartan Potassium 100 MG Tablet Oral; Duration: 30 Days Acti ve Immunizations Vaccine Route Administration Date Status Comme nts Influenza Unknown 12/06/2022 Administered Influenza Unknown 01/09/2024 Administered Social History Tobacco Use: Social History Observation Description Date Details (start date - stop date) Never Smoker NA - NA Social History Drugs/Alcohol: Social Info Question Answer Notes Alcohol Screen Did you have a drink containing alcohol in the past year? No Points 0 Interpretation Negative Tobacco Use: Social Info Question Answer Notes Tobacco Use/Smoking Patient is a nonsmoker Additional Details Category Social Info Options Details Miscellaneous: Marital status: Occupation: retired Problems Problem Type SNOMED Code ICD Code Onset Dates Problem Status W/U Status Risk Notes Problem Colon cancer screening (571686909) Colon cancer screening (Z12.11) Active confirmed Problem History of polyp of colon (situation) (268667673) Personal history of colonic polyps (Z86.010) Active confirmed Problem Diverticular disease of colon (026012562) Diverticulosis of large intestine without perforation or abscess without bleeding (K57.30) Active confirmed Problem Tubulovillous adenoma of colon (8349644355) 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) Active confirmed Problem Abnormal feces (337119654) Positive colorectal cancer screening using Cologuard test (R19.5) Active confirmed Problem Serrated polyp of colon (880555603) Serrated polyp of colon (K63.5) Active confirmed Problem Gastroesophageal reflux disease (370955308) Gastroesophageal reflux disease, unspecified whether esophagitis present (K21.9) Active confirmed Vital Signs Temperature 98.0 degrees Fahrenheit 11/13/2024 Blood pressure diastolic 01 mm Hg 11/13/2024 Height 70 in 11/13/2024 Blood pressure systolic 001 mm Hg 11/13/2024 Weight 244.4 lbs 11/13/2024 BMI 35.06 kg/m2 11/13/2024 Procedures Procedure Date Ordered Date Performed Result Body Sit e COLONOSCOPY 11/13/2024 N/A Encounters Encounter Location Date Provider Diagnosis [facility] [address] [place] [address] 11/13/2024 Felipe Varela Personal history of colonic polyps Z86.010 ; Tubulovillous adenoma of colon K63.5 ; Colon cancer screening Z12.11 ; Serrated polyp of colon K63.5 and Gastroesophageal reflux disease, unspecified whether esophagitis present K21.9 [facility] [address] [place] [address] 11/20/2024 Felipe Varela Assessments Encounter Date Diagnosis (ICD [...] Z12.11) Need report of recent MRI at [facility] and a clearance note from his Pet House Sitter Dr. Gleason in regard to his pituitary [...] advised of his progress. Plan Of Treatment Pending Test Test Name Order Date COLONOSCOPY 11/13/2024 Future Test Test Name Order Date COLONOSCOPY 04/06/2023 COLONOSCOPY 08/09/2023 Next Appt Details Provider Name:Felipe Varela , 02/28/2025 09:30:00 AM, [address] [place] [address] , [place], [place], [phone], Insurance Providers Payer Name Payer Address Payer Phone Subscriber Number Group Number Insured Name Patient Relationship to Insured Coverage Start Date Coverage End Date MEDICARE OF [place] [address] [place] [id number] [phone] [id number] [employer] Self - patient is the insured [employer] [address] [place] [address] [id number] [employer] Self - patient is the insured MEDICAID OF [facility] [address] [place] [phone] [id number] [employer] Self - patient is the insured Medical (General) History Medical History History ICD Code Hypertension Sleep apnea- not using CPAP GERD-EGD > [address] Harrison- t old of a hiatal hernia Negative colonoscopy > 10 yrs ago with Titus Harrison Denies SC,DM,CVA,Lung disease,renal dise ase Positive Cologuard in 03/2023 [...] 2024. He has also been seen in [place] for this issue Surgical History Surgery Date(Month/Year)
--- OUTSIDE RECORDS SUMMARY | 2025-02-02 21:27 | XMS_ITS | Encounter Summary ---
Author Organization [employer] Address [address] [place] [address] 7 [place] [address] Care Team Providers Care Sample Finisher Name Role Phone Sharmin Church MD Primary Care Provide r Reason for Visit * Reason Onset Date Comments FYI 01/08/2024 Encounter Details Date Type Department Care Team ([facility] st Contact Info) Description 01/08/2024 Telephone [facility] MEDICINE [address] [place], [place] [phone] Sharmin Church MD [address] [place] [address] FYI Social History Tobacco Use Types Packs/Day [...] pituitary macroadenoma, colonoscopy was cancelled. Per last [facility] endo note 11/27/23: This is a 73-year-old [...] getting an appointment with the neurosurgeon at [facility]. . Will talk to [facility] to see if they can run serial dilutions on the repeat prolactin level get accurate measure. We will continue the bromocriptine 2.5 mg for now. With the help of historic interpreter explained the necessity again of getting a expert Neurosurgery opinion at 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 Told Dr. Varela' office [facility] appt is scheduled for 02/05/24. Dr. [...] cleared for anesthesia any questions please call [phone] documented in this encounter Plan of Treatment Not on file documented as of this encounter Visit Diagnoses Not on filedocumented in this encounter Additional Health Concerns Assessment Noted Time PHQ-9 Depression Total Score: 0 03/08/20 23 9:16 AM EST documented as of this encounter Care Teams Sample Finisher Relationship Specialty Start Date End Date Sharmin Church MD [address] [place] [address] PCP - General Family Medicine 11/10/20 documented as of this encounter
--- OUTSIDE RECORDS SUMMARY | 2025-02-02 21:27 | XMS_ITS | Encounter Summary ---
Author Organization [employer] Address [address] [place] [address] 7 [place] [address] Care Team Providers Care Molder Vacuum Name Role Phone Sharmin Church MD Primary Care Provide r Encounter Details Date Type Department Care Team ([facility] st Contact Info) Description 05/20/2022 Abstract [facility] [address] [place], [place] [phone] Gail Jina [address] [place] [address] Social History Tobacco Use Types Packs/Day Years [...] on filedocumented in this encounter Care Teams Molder Vacuum Relationship Specialty Start Date End Date Sharmin Church MD [address] [place] [address] PCP - General Family Medicine 11/10/20 documented as of this encounter
--- OUTSIDE RECORDS SUMMARY | 2025-02-02 21:27 | XMS_ITS | Encounter Summary ---
Author Organization [employer] Address [address] [place] [address] 7 [place] [address] Care Team Providers Care Manager Office Name Role Phone Sharmin Church MD Primary Care Provide r Reason for Visit * Reason Comments Med Refill Encounter Details Date Type Department Care Team (Late st Contact Info) Description 05/28/2022 Refill [facility] MED[facility]INE [address] [place], [place] [phone] Ping Rose, ANP [address] [place] [address] Primary hypertension Social History Tobacco Use Types [...] hypertension documented in this encounter Care Teams Manager Office Relationship Specialty Start Date End Date Sharmin Church MD [address] [place] [address] PCP - General Family Medicine 11/10/20 documented as of this encounter
--- OUTSIDE RECORDS SUMMARY | 2025-02-02 21:27 | XMS_ITS | Clinical Summary ---
Author Organization [employer] Address [address] [place] [address] 7 [place] [address] Care Team Providers Care Processing Tech Name Role Phone Sharmin Church MD Primary Care Provide r Allergies Active Allergy Reactions Criticality Noted Date Comments Chlorthalidone 05/04/2023 Dry mouth Penicillins Dizziness,Unknown Terbinafine 10/09/2014 Other reaction(s): Rash, itching Valsartan 05/04/2023 Stomach pain Medications Cyanocobalamin (Vitamin B-12) 2500 MCG sublingual tablet 08/11/19 23 Active bromocriptine (Parlodel) 2.5 MG tablet Take [...] 25 Active pantoprazole (ProtoNix) 20 MG EC tabletIndicatio ns:Gastroesopha geal reflux disease, unspecified whether esophagitis present TAKE 1 TABLET BY MOUTH TWICE DAILY 180 tablet 1 09/18/19 25 Active hydrocortisone 2.5 % creamIndication s:Intertrigo Apply topically 2 times daily. Up to 2 weeks at a time 28 g 1 12/07/19 25 Active fluticasone (Flonase) 50 MCG/ACT nasal sprayIndication s:Nasal congestion USE 2 SPRAYS IN EACH NOSTRIL ONCE DAILY NEEDED FOR ALLERGIES 48 g 1 12/12/19 25 Active losartan (Cozaar) 100 MG tabletIndicatio ns:Primary hypertension Take 1 tablet (100 mg) by mouth in the morning. 90 tablet 1 01/16/20 25 Active econazole nitrate 1 % creamIndication s:Tinea pedis of both feet,Intertrigo Apply topically 2 times daily. 85 g 1 01/16/20 25 Active losartan (Cozaar) 100 MG tabletIndicatio ns:Primary hypertension TAKE 1 TABLET BY MOUTH EVERY MORNING 30 tablet 11 05/21/19 25 025 Discontinued(Re order (will not trigger notification to Pharmacy)) econazole nitrate 1 % creamIndication s:Tinea pedis of both feet,Intertrigo Apply topically 2 times daily. 85 g 12/07/19 25 025 Discontinued(Re order (will not trigger notification to Pharmacy)) hydroCHLOROthia zide (HYDRODiuril) 50 MG tabletIndicatio ns:Primary hypertension Take 1 tablet (50 mg) by mouth Once per day. 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 Assessment & Plan (01/26/2024 4:06 PM EST): Do not miss appointment with specialist continue taking bromocriptine as prescribed Tinea pedis of both feet 05/26/2023 Positive colorectal cancer screening using Colog uard test 04/04/2023 Colon cancer screening 03/08/2023 Intertrigo 03/08/2023 Dermatitis 03/08/2023 Dental calculus 05/19/2022 Periodontal disease 05/19/2022 Osteoarthritis of both knees 03/02/2022 Assessment & Plan (12/11/2024 10:31 AM EDT): Continue with acetaminophen as needed Chronic low back pain 03/02/2022 Assessment & [...] 04/14/2016 Hypertensive disorder 03/29/2016 Assessment & Plan (12/11/2024 10:30 AM EDT): I advised low-sodium diet and I refill his chlorthalidone I let him know he should be taking both chlorthalidone and losartan for blood pressure control Assessment & Plan (06/21/2024 11:57 AM EDT): [...] Encounters Date Type Department Care Team Description 01/15/2025 11:15 AM EDT Office Visit [facility] MEDICINE [address] [place] [phone] Sharmin Church MD Primary hypertension; Tinea pedis of both feet; Intertrigo; Prolactinoma (CMS/HCC) (HCC) 01/15/2025 Travel 01/14/2025 Telephone [facility] MEDICINE [address] [place] [phone] Sharmin Church MD 01/09/2025 2:30 PM EDT Office Visit [facility] OPTOMETRY [address] [place] [address] Lamine, Eloina, OD Combined form of age-related cataract, both eyes (Primary Dx); Dry eyes; Presbyopia 01/09/2025 Travel 01/08/2025 Travel 01/08/2025 Patient Outreach [facility] MED[facility]INE [address] [place] [address] Sharmin Church MD Pre-visit Planning (SDOH screening was completed on 12/11/2024) 12/11/2024 9:30 AM EDT Telemedicine [facility]INE [address] [place] [phone] Sharmin Church MD Primary hypertension; Nasal congestion; Primary osteoarthritis of both knees; Prolactinoma (CMS/HCC); XAVIER (obstructive sleep apnea) 12/11/2024 Travel 12/10/2024 Telephone [facility] MEDICINE [address] [place] [address] Sharmin Church MD chart prep 12/06/2024 11:00 AM EDT Office Visit [facility] MEDICINE [address] [place] [address] Oniel Celaya MD Tinea pedis of both feet (Primary Dx); Intertrigo 12/06/2024 Travel 11/28/2024 Telephone [facility] MED & PEDS [address] [place] [address] Sharmin Church MD NOV RECALL 11/25/2024 Refill [facility] MED [facility] PEDS [address] [place] [address] Sharmin Church MD Nasal congestion 11/20/2024 Orders Only GENERIC EXTERNAL DATA DEPARTMENT Provider, Generic External Data 11/20/2024 Telephone [facility] MEDICINE [address] [place] [address] Sharmin Church MD Clearance from Last 3 Months Immunizations Immunization Administration [...] housing situation today? I have glenn navarro 12/11/[address] you li ve. Do you have problems with any of the following? None of the above 12/11/2024 Food Insecurity Answer Date Recorded Within the past 12 months, y ou worried that your food would run out before you got money to buy more: Sometimes True 2024 Within the past 12 months,th e food you bought just didn't last and you didn't have enough money to get more: Sometimes True 12/11/2024 Transportation Answer Date Recorded In the past 12 months, has l ack of transportation kept you from medical appts, meetings, work or from getting things needed for daily living? No 12/11/2024 Utilities Answer Date Recorded In the past 12 months, has t he electric, gas, oil or water company threatened to shut off services in your home? No 12/11/2024 Depression Answer Date Recorded Patient Health Questionnaire-2 Score 0 04/10/2024 Internet Access Answer Date Recorded Internet Access Q1 Yes 12/11/2024 Internet Access Q2 Not on file 12/11/2024 Sex and Gender Information Value Date Recorded Sex Assigned at Male 01/17/2022 10:22 AM EDT Legal Sex Male 10:22 AM EDT Gender Identity Male 01/17/2022 10:22 AM EDT Sexual Orientation Straight 01/17/2022 10 :22 AM EDT Last Filed Vital Signs Vital Sign Reading Time Taken Comments Blood Pressure 120/64 01/15/2025 11:15 AM EDT Pulse 61 01/15/2025 11:15 AM EDT Temperature 34.6 C (94.2 F) 01/15/2025 11:15 AM EDT Respiratory Rate 17 01/15/2025 11:15 AM EDT Oxygen Saturation 98% 01/15/2025 11:15 AM EDT Inhaled Oxygen Concentration - - Weight 107 kg (236 lb) 01/15/2025 11:15 AM EDT Height 180.3 cm (5' 11 ) 01/15/2025 11:15 AM EDT Body Mass Index 32.92 01/15/2025 11:15 AM EDT Plan of Treatment Health Maintenance Due Date Last Done Comments CT Colonography 1950 Colonoscopy 1950 Dental X-Ray: Full Mouth 1950 FIT 1950 Sigmoidoscopy 1950 Hepatitis C Screening 08/02/1969 Zoster Vaccines (1 of 2) 08/02/2001 Dental Oral Exam 08/31/2022 03/01/2022 Dental Prophylaxis 08/31/2022 03/01/2022 DTaP/Tdap/Td Vaccines (2 - Td or Tdap) 05/16/2023 05/16/2013 FOBT 03/21/2024 03/21/2023 Dental X-Ray: Bitewings 04/08/2024 04/07/19 24, 01/24/2023, 03/01/2022 COVID-19 Vaccine ( season) 2024 02/10/2021, 07/28/2020, 06/30/2020 Depression Screening 04/10/2025 04/10/2024, 04/10/19 25 Diabetes: Hemoglobin A1C 07/19/2025 025, 06/24/2021, 11/17/2020, Additional history exists SDOH Screening 12/11/2025 12/11/2024 Alcohol/Substance Use Screening 01/15/2026 01/15/2025 Tobacco Screening 01/27/2026 01/27/2025 Colorectal Cancer Screening 03/21/2026 FIT DNA/Cologuard 03/21/2026 03/21/2023 Lipid Panel 06/24/2026 06/24/2021, 2020, 11/27/2019 RSV Patients and Patients Aged 60 years or older (1 - 1-dose 75+ series) 08/02/2026 Pneumococcal Vaccine: 50+ Years Completed 01/07/2019, 06/20/2017 Influenza Vaccine Completed 12/17/2024, , 01/20/2023, Additional history exists HIB Vaccines Aged Out [...] EDT) Prolactin 5.3 2.0 - 18.0 ng/mL [facility] Comment:THIS TEST WAS PERFOR MED AT:[facility] [address] [id number] TRUJILLO MD 11/20/2024 10:2 7 AM EDT 11/20/2024 10:27 AM EDT us Generic External Data Provider LAB BLOOD ORDERAB LES Final Result Performing Organization Address [facility] de Phone Number [facility] [address] [place] [phone] * (ABNORMAL) Hemoglobin A1c (07/19/2024 9:59 AM EDT) Hemoglobin A1c 6.1(H) <6.0 % [facility] Comment:Hemoglobin A1C Refer ence Range Adults: 4.8 - 6.0 % Non diabetic: < 6.0 % Goal: < 7.0 %Additional Action Suggested: > 8.0 %Note: Hemoglobin A1c results are invalid for patients with abnormal amounts of HbF. Blood transfusions may impact the HbA1c concentration in the patient sample. Estimated Average Glucose 128 mg/dL [facility] Comment:eAG = Estimated ave rage glucose which is %A1C expressed asaverage glucose, using the formula of the [id number] Glucose study (ADAG), Diabetes Care, Vol.31,#8,Oct. 2007 Blood Venous blood specimen / Unknown 07/19/2024 9:59 AM EDT 07/19/2024 11:05 AM EDT Ryan Urban MD LAB BLOOD ORDERABLES Final Resul t Performing Organization Address [facility] Co de Phone Number [facility] [address] [place] [phone] * (ABNORMAL) Cologuard?? colon cancer screening (03/21/2023 7:00 PM EST) Cologuard Result Positive( A) Negative 03/29/2023 6:47 AM EST [facility] (CLIA #:[id number]) Comment: POSITIVE TEST RESULT. A positive Cologuard [...] (Mike Houston al, N Engl J Med 2014;370(14):5445-1044.) Cologuard may produce a false negative or false positive result (no colorectal cancer or precancerous polyp present at colonoscopy follow up). A negative Cologuard test result does not guarantee the absence of CRC or advanced adenoma (pre-cancer). The current Cologuard screening interval is every 3 years. ([place] [employer] and U.S. Multi-Society Task Force). Cologuard performance data in a 10,000 patient pivotal study using colonoscopy as the reference method can be accessed at the following location: [email or web address]. Additional description of the Cologuard test process, warnings and precautions can be found at [email or web address]. Stool specimen (specimen) 03/21/2023 7:00 PM EST 03/23/2023 1:48 PM EST us Sharmin Harrison MD LAB MOLECULAR DIAGNOS TICS ORDERABLES Final Result [facility] (CLIA #:[id number]) [address] [place] [address], * (ABNORMAL) LIPID PANEL (06/24/2021 9:38 AM [...] liver disease. LDL Cholesterol Calculated 120 mg/dl [facility] Comment: Desirable LDL: less than [...] >60 [facility] Comment: NOTE: For -Liberian individuals, multiply the result by 1.210. Chronic [...] [facility] Comment: PSA methodology: Gal[employer] Le[employer]ader Chemiluminescent Microparticle Immunoassay 06/24/2021 9:38 AM EDT us Sharmin Harrison MD HISTORICAL/NON ORDERA BLE LABS Final Result [facility] [address] [place] [address], from Last 3 Months or Most Recently Relevant to [place] [id number] [facility] ST[facility] Care Teams Processing Tech Relationship Specialty Start Date End Date Sharmin Church MD [address] [place] [phone] PCP - General Family Medicine 11/10/20
== END ==
LOC: HO.SL 20:30
PROVIDERS: PCP Internal Medicine; Visit Provider Internal Medicine
DX: Z13.89 Encounter for screening for other disorder (principal)